=== PATIENT | female | born 1950 | race Caucasian/White ===

== ENCOUNTER 2017-05-26 12:02 | Emergency (ER) | payer OTHER ==
[~2017-05-26] VITALS: Ht 170.2 cm; Wt 132.0 kg
--- NOTE | 2017-05-26 15:11 | Diagnostic Imaging Report ---
PROCEDURE:X-RAY RIGHT FOREARM, TWO VIEWS COMPARISON:None. INDICATIONS:FALL FINDINGS: There are no displaced fractures, dislocations, lytic or blastic lesions. Mild buckling of the lateral cortex of the distal radial metadiaphysis is nonspecific, however, could represent a nondisplaced fracture in appropriate setting. Irregularity of the cutaneous surface in the dorsal aspect of the mid forearm may represent laceration/abrasions. No radiopaque foreign bodies. CONCLUSION: Mild buckling of the lateral cortex of distal radial metadiaphysis is nonspecific however, could represent a nondisplaced fracture. If wrist pain, consider further evaluation with dedicated wrist series. Mee Flores M.D. Dictated by: Mee Flores M.D. on 05/26/2017 at 15:19 Electronically approved by: Mee Flores M.D. on 05/26/2017 at 15:19
--- NOTE | 2017-05-26 15:14 | Diagnostic Imaging Report ---
PROCEDURE:X-RAY RIGHT FOOT, COMPLETE COMPARISON:None. INDICATIONS:FALL FINDINGS: There is a displaced angulated fracture of the distal metadiaphysis of the fifth metatarsal bone. Diffuse paratracheal osteopenia. Marked hallux valgus deformity. Healed fracture of the second metatarsal bone. Advanced arthritic changes involving multiple tarsal and tarsometatarsal joints with subchondral erosions. Plantar calcaneal enthesophyte. CONCLUSION: 1. Displaced fibular fracture of the distal metadiaphysis of the fifth metatarsal bone. 2. Marked hallux valgus deformity. 3. 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 Mee Flores M.D. Dictated by: Mee Flores M.D. on 05/26/2017 at 15:22 Electronically approved by: Mee Flores M.D. on 05/26/2017 at 15:22
[2017-05-26] MEDS ORDERED: TETANUS/DIPHTHERIA TOX ADULT 0.5 ML SYR IM ONE (15:15)
--- NOTE | 2017-05-26 15:21 | Diagnostic Imaging Report ---
PROCEDURE:HIPS BILAT 3-4VWS (+/- PELVIS) INDICATION:Flow. COMPARISON:None. FINDINGS: Mild DJD of hip and SI joints bilaterally. Degenerative changes of the lower lumbar spine. Phleboliths projected on the lower left hemipelvis. Vascular calcifications. CONCLUSION: No acute displaced hip fracture. Mee Flores M.D. Dictated by: Mee Flores M.D. on 05/26/2017 at 15:29 Electronically approved by: Mee Flores M.D. on 05/26/2017 at 15:29
[2017-05-26] MEDS ORDERED: SODIUM CHLORIDE 0.9% 250ML IRRIG IR SCH (15:45)
--- NOTE | 2017-05-26 15:50 | Diagnostic Imaging Report ---
Examination: CT BRAIN WITHOUT CONTRAST History:Confusion. Altered mental status. Comparison studies:None Technique: Axial images were obtained from the skull base to the vertex. Coronal and sagittal images reconstructed from the axial data. Intravenous contrast: None Findings: Scalp: No abnormalities. Bones: No fractures, blastic or lytic lesions. Brain sulci: Appropriate for age. Ventricles: Normal in size and configuration. No hydrocephalus. Extra-axial space: There is a near completely calcified left frontal 2.7 x 2.7 x 1.8 cm (superoinferior x anteroposterior x transverse dimensions) dural based, extra-axial lesion with regional mass effect upon the left inferior frontal gyrus and frontoparietal operculum. No midline shift or herniation. Parenchyma: No masses, hemorrhage, or acute or chronic cortical based vascular insults. Sellar/suprasellar region: No abnormalities. Craniocervical junction: Patent foramen magnum. No Chiari one malformation. Incidental findings: Atherosclerotic calcification of the cavernous and supraclinoid internal carotid arteries. Impression: 1. No acute intracranial abnormalities. 2. Left frontal convexity 2.7 x 2.7 x 1.8 cm extra-axial meningioma with regional mass effect, but no midline shift or herniation. Signed by: Dr. uRby Gonzalez M.D. on 05/26/2017 3:46 PM
[2017-05-26] MEDS ORDERED: PANTOPRAZOLE INJ 40 MG in SODIUM CHLORIDE 0.9% 50ML 50 ML IV SCH (16:00)
[2017-05-26 16:13] LABS: BASOPHILS % 0.2 % (0.0-1.0); EOSINOPHILS # (AUTO) 0.1 (0.0-0.4); EOSINOPHILS % 1.4 % (0.0-6.0); HEMATOCRIT 34.3 % (34.2-44.1); HEMOGLOBIN 11.1 g/dL (12.0-16.0); LYMPHOCYTES % 12.5 % (18.0-39.1); MEAN CORPUSCULAR HEMOGLOBIN 31.9 pg (28-32); MEAN CORPUSCULAR HGB CONC 32.4 g/dL (31-35); MEAN CORPUSCULAR VOLUME 98.6 fL (81-99); MONOCYTES # (AUTO) 0.6 (0.2-0.8); MONOCYTES % 6.9 % (4.4-11.3); NEUTROPHILS # (AUTO) 6.4 (2.1-6.9); NEUTROPHILS % 78.5 % (38.7-80.0); PLATELET COUNT 258 x10e3/uL (140-360); RED BLOOD COUNT 3.48 x10e6/uL (3.6-5.1); RED CELL DISTRIBUTION WIDTH 13.9 % (11.7-14.4)
[2017-05-26 16:16] LABS: INR 0.98; PROTHROMBIN TIME 13.5 seconds (11.9-14.5)
[2017-05-26 16:17] LABS: PARTIAL THROMBOPLASTIN TIME 27.7 seconds (23.8-35.5)
--- NOTE | 2017-05-26 16:17 | Diagnostic Imaging Report ---
PROCEDURE: A single AP view of the chest. COMPARISON: None. INDICATIONS: FALL, SOB FINDINGS: Lines/tubes: None. Lungs: The lungs are well inflated and clear. There is no evidence of pneumonia or pulmonary edema. Pleura: There is no pleural effusion or pneumothorax. Heart and mediastinum: The cardiac silhouette is mildly enlarged. Bones: No acute bony abnormality. Widening of the right a.c. joint may be posttraumatic or post surgical. IMPRESSION: 1. No acute thoracic abnormality. Mee Flores M.D. Dictated by: Mee Flores M.D. on 05/26/2017 at 16:25 Electronically approved by: Mee Flores M.D. on 05/26/2017 at 16:25
--- NOTE | 2017-05-26 16:19 | Diagnostic Imaging Report ---
PROCEDURE:X-RAY RIGHT HUMERUS, TWO OR MORE VIEWS COMPARISON:None. INDICATIONS:FALL, RIGHT UPPER ARM PAIN FINDINGS: There are no fractures, dislocations, lytic or blastic lesions. The bones are well-mineralized. The soft-tissues are unremarkable. Small bony excrescence off the anterior aspect of the radial head on the lateral view likely represents a small osteophyte. Mild DJD of right a.c. joint CONCLUSION: No acute osseous abnormality. Mee Flores M.D. Dictated by: Mee Flores M.D. on 05/26/2017 at 16:27 Electronically approved by: Mee Flores M.D. on 05/26/2017 at 16:27
[2017-05-26 16:23] LABS: ALBUMIN 3.3 g/dL (3.5-5.0); ALBUMIN/GLOBULIN RATIO 0.9 (0.8-2.0); ANION GAP 18.5 mmol/L (8-16); CREATININE, SERUM 3.99 mg/dL (0.57-1.11); POTASSIUM 5.5 mmol/L (3.5-5.1)
[2017-05-26] MEDS ORDERED: PROPRANOLOL HCL10 MG PO (17:07)
[2017-05-26] MEDS ORDERED: SPIRONOLACTONE100 MG PO (17:07)
[2017-05-26] MEDS ORDERED: NOVOLOG100 UNIT/1 SQ (17:07)
[2017-05-26] MEDS ORDERED: GLIMEPIRIDE2 MG PO (17:07)
[2017-05-26] MEDS ORDERED: ULTRAM50 MG PO (17:07)
[2017-05-26] MEDS ORDERED: JANUVIA100 MG PO (17:07)
[2017-05-26] MEDS ORDERED: ALLOPURINOL300 MG PO (17:07)
[2017-05-26] MEDS ORDERED: BUMETANIDE1 MG PO (17:07)
[2017-05-26] MEDS ORDERED: LOVASTATIN40 MG PO (17:07)
[2017-05-26] MEDS ORDERED: INSULIN REGULAR, HUMAN 100 UNIT/1 ML 3ML VIAL SQ ONE (17:45)
[2017-05-26] MEDS ORDERED: SOD POLYSTYRENE SULFONATE SUSP 15 GM/60 ML BTL PO STA (19:02)
[2017-05-26 19:32] VITALS: BP 135/54
== END 2017-05-26 19:34 | disposition short-term general hospital (02) ==
LOC: ER 12:02
DX: S52.381A Bent bone of right radius, initial encounter for closed fracture (principal); S70.211A Abrasion, right hip, initial encounter; S90.414A Abrasion, right lesser toe(s), initial encounter; W01.0XXA Fall on same level from slipping, tripping and stumbling without subsequent striking against object, initial encounter; Y92.008 Other place in unspecified non-institutional (private) residence as the place of occurrence of the external cause; E87.5 Hyperkalemia; N18.3 Chronic kidney disease, stage 3 (moderate)
CPT/HCPCS: 36415; 70450; 71010; 73522; 80053; 82270; 82948; 85025; 85610; 85730; 90471; 90714; 93005; 99284

== ENCOUNTER 2017-06-22 17:43 | Emergency (ER) | payer OTHER ==
[~2017-06-22] VITALS: Ht 170.2 cm; Wt 132.9 kg
[~2017-06-22 17:43] MED LIST: ALLOPURINOL300 MG PO; BUMETANIDE1 MG PO; GLIMEPIRIDE2 MG PO; JANUVIA100 MG PO; LEVEMIR100 UNIT/1 SC; LEVETIRACETAM500 MG PEG; LOVASTATIN40 MG PO; NOVOLOG100 UNIT/1 SQ; PROPRANOLOL HCL10 MG PO; SPIRONOLACTONE100 MG PO; ULTRAM50 MG PO
--- OUTSIDE RECORDS SUMMARY | 2017-06-22 17:46 | XMS REPORT | Continuity of Care Document ---
Author Author [facility] Organization [facility] Address [address] [place] [address] Phone Unavailable Care Team Providers Care Rope Coiling Machine Operator Name Role Phone EVELIO VELASCO MD PCP Insurance Providers Guarantor Leila Mcrae Address [address] [place] [address] Email [email or web address] Payer [place] Policy Number [id number] Subscriber's Name Leila Mcrae Relationship 18 Self / Same As Patient Group Number [id number] Group Name [employer] - [employer] Ad[employer] Effective Date 17 Advance Directives Directive Response Recorded Date/Time Does the patient have an advance directive? No 06/14/17 4:56pm If yes, is advance directive on file with [facility]? No 05/26/17 5:21pm If not on file with [facility] will patient provide a copy? No 05/26/17 5:21pm Do you have a Directive to Physician? No 06/12/17 8:23pm Do you have a Medical Power of Order Desk Clerk? No 06/12/17 8:23pm Do you have an out of hospital Do Not Resuscitate Order? No 06/12/17 8:23pm Do you have any special needs we should be aware of? No 06/12/17 8:23pm Do you have a support person here with you today? Yes 06/12/17 8:23pm Did patient receive Notice of Privacy Practices? Yes 06/12/17 8:23pm Did patient receive patient rights and responsibilities? Yes 06/12/17 8:23pm Problems Medical Problem Onset Date Status Bronchitis Unknown Renal insufficiency Unknown Medications Current Home Medications Medication Dose Units Route Directions Days Qty Instructions Start Date Allopurinol 300 Mg Tablet 150 Mg Oral Daily 30 Tab Bumetanide 1 Mg Tablet 2 Mg Oral Daily 30 Tab Insulin Aspart (Novolog) 100 Unit/1 Ml Cartridge 22 Unit Sub-Q Three Times Daily With Meals Insulin Detemir (Levemir) 100 Unit/1 Ml Vial 40 Unit Subcutaneously Daily Levetiracetam 500 Mg Tablet 500 Mg Peg Tube Twice A Day Lovastatin 40 Mg Tablet 40 Mg Oral Daily THERAPEUTICALLY SUBSTITUTED WITH SIMVASTATIN 20MG Propranolol Hcl 10 Mg Tablet 20 Mg Oral Twice A Day Spironolactone 100 Mg Tablet 100 Mg Oral Daily Tramadol Hcl (Ultram) 50 Mg Tablet 50 Mg Oral Bedtime Past Home Medications Medication Directions Ordered Status Glimepiride 2 Mg Tablet, 4 Mg Oral Twice A Day Discontinued Sitagliptin Phosphate (Januvia) 100 Mg Tablet, 100 Mg Oral Daily Discontinued Social History Social History Problem Response Recorded Date/Time Onset Date Status Hx Psychiatric Problems No 06/14/2017 4:56pm Not Applicable Not Applicable Hx Eating Disorder No 06/14/2017 4:56pm Not Applicable Not Applicable Hx Substance Use Disorder No 06/14/2017 4:56pm Not Applicable Not Applicable Hx Depression No 06/14/2017 4:56pm Not Applicable Not Applicable Hx Alcohol Use No 06/14/2017 4:56pm Not Applicable Not Applicable Hx Substance Use Treatment No 06/14/2017 4:56pm Not Applicable Not Applicable Hx Physical Abuse No 06/14/2017 4:56pm Not Applicable Not Applicable Smoking Status Start Date Stop Date Never Smoker Hospital Discharge Instructions No hospital discharge instruction information available. Plan of Care Discharge Date 06/17/17 11:05am Disposition HOME, SELF-CARE Instructions/Education Provided Bronchitis (Acute) - Adult Prescriptions See Medication Section Additional Instructions/Education FOLLOW UP WITH PRIMARY CARE PROVIDER IN ONE WEEK. Functional Status Query Response Date Recorded FUNCTIONAL STATUS . June 14, 2017 12:25pm Assistive Devices Rolling Walker June 14, 2017 4:59pm Ambulation Ability Minimum Assistance 1 person assist June 14, 2017 4:59pm Toileting Ability Independent June 15, 2017 9:01am Allergies, Adverse Reactions, Alerts No known allergies. Immunizations No immunization information available. Vital Signs Acute Vital Signs Vital Response Date/Time Temperature (Fahrenheit) 96.3 degrees F (97.6 - 99.5) 06/17/2017 8:17am Pulse Pulse Rate (adult) 74 bpm (60 - 90) 06/17/2017 8:17am Respiratory Rate 20 bpm (12 - 24) 06/17/2017 8:17am Blood Pressure 136/80 mm Hg 06/17/2017 8:17am Height 5 ft 7 in 06/12/2017 7:19pm Weight 293.19 lb 06/17/2017 8:18am Body Mass Index 45.9 kg/m^2 06/17/2017 8:18am Results Laboratory Results Test Name Result Units Flags Reference Collection Date/Time Result Date/ Time Comments Stool Occult Blood NEGATIVE NEGATIVE 05/26/2017 3:00pm 05/26/2017 3: 48pm White Blood Count 9.28 x10e3/uL 4.8-10.8 06/15/2017 7:16am 06/15/2017 7 :39am Red Blood Count 2.91 x10e6/uL L 3.6-5.1 06/15/2017 7:16am 06/15/2017 7: 39am Hemoglobin 9.2 g/dL L 12.0-16.0 06/15/2017 7:1606/15/2017 7:39am Hematocrit 27.9 % L 34.2-44.1 06/15/2017 7:16am 06/15/2017 7:39am Mean Corpuscular Volume 95.9 fL 81-99 06/15/2017 7:16am 06/15/2017 7: 39am Mean Corpuscular Hemoglobin 31.6 pg 28-32 06/15/2017 7:16am 06/15/2017 7:39am Mean Corpuscular Hemoglobin Concent 33.0 g/dL 31-35 06/15/2017 7:06/15/2017 7:39am Red Cell Distribution Width 14.0 % 11.7-14.4 06/15/2017 7:2017 7:39am Platelet Count 241 x10e3/uL 140-360 06/15/2017 7:06/15/2017 7: 39am Neutrophils (%) (Auto) 69.6 % 38.7-80.0 06/15/2017 7:06/15/2017 7: 39am Lymphocytes (%) (Auto) 19.4 % 18.0-39.1 06/15/2017 7:06/15/2017 7: 39am Monocytes (%) (Auto) 9.2 % 4.4-11.3 06/15/2017 7:06/15/2017 7: 39am Eosinophils (%) (Auto) 0.9 % 0.0-6.0 06/15/2017 7:06/15/2017 7: 39am Basophils (%) (Auto) 0.1 % 0.0-1.0 06/15/2017 7:06/15/2017 7:39am IM GRANULOCYTES % 0.8 % 0.0-1.0 06/15/2017 7:06/15/2017 7:39am Neutrophils # (Auto) 6.5 2.1-6.9 06/15/2017 7:06/15/2017 7:39am Lymphocytes # (Auto) 1.8 1.0-3.2 06/15/2017 7:06/15/2017 7:39am Monocytes # (Auto) 0.9 H 0.2-0.8 06/15/2017 7:06/15/2017 7:39am Eosinophils # (Auto) 0.1 0.0-0.4 06/15/2017 7:06/15/2017 7:39am Basophils # (Auto) 0.0 0.0-0.1 06/15/2017 7:06/15/2017 7:39am Absolute Immature Granulocyte (auto 0.07 x10e3/uL 0-0.1 06/15/2017 7: 06/15/2017 7:39am Prothrombin Time 13.7 seconds 11.9-14.5 06/12/2017 7:30pm 06/12/2017 8: 34pm Prothromb Time International Ratio 1.00 06/12/2017 7:30pm 2017 8:34pm Oral Anticoagulant Therapy INR Values: 1. Low Intensity Therapy 1.5 - 2.0 2. Moderate Intensity Therapy 2.0 - 3.0 3. High Intensity Therapy(1) 2.5 - 3.5 4. High Intensity Therapy(2) 3.0 - 4.0 5. Panic Value INR > 5.0 Activated Partial Thromboplast Time 32.6 seconds 23.8-35.5 06/12/2017 7: 30pm 06/12/2017 8:34pm Urine Color YELLOW YELLOW 06/12/2017 7:30pm 06/12/2017 10:02pm Urine Clarity HAZY CLEAR 06/12/2017 7:30pm 06/12/2017 10:02pm Urine Specific [place] 1.020 1.010-1.025 06/12/2017 7:30pm 2017 10:02pm Urine pH 5 5 - 7 06/12/2017 7:30pm 06/12/2017 10:02pm Urine Leukocyte Esterase TRACE H NEGATIVE 06/12/2017 7:30pm 2017 10:02pm Urine Nitrite NEGATIVE NEGATIVE 06/12/2017 7:30pm 06/12/2017 10:02pm Urine Protein 1+ H NEGATIVE 06/12/2017 7:30pm 06/12/2017 10:02pm Urine Glucose (UA) NEGATIVE NEGATIVE 06/12/2017 7:30pm 06/12/2017 10: 02pm Urine Ketones NEGATIVE NEGATIVE 06/12/2017 7:30pm 06/12/2017 10:02pm Urine Urobilinogen 0.2 mg/dL 0.2 - 1 06/12/2017 7:30pm 06/12/2017 10: 02pm Urine Bilirubin NEGATIVE NEGATIVE 06/12/2017 7:30pm 06/12/2017 10: 02pm Urine Blood 1+ H NEGATIVE 06/12/2017 7:30pm 06/12/2017 10:02pm Urine WBC 6-10 /HPF H 0-5 06/12/2017 7:30pm 06/12/2017 10:20pm Urine RBC 6-10 /HPF H 0-5 06/12/2017 7:30pm 06/12/2017 10:20pm Urine Bacteria FEW /HPF NONE 06/12/2017 7:30pm 06/12/2017 10:20pm Urine Epithelial Cells MODERATE /LPF NONE 06/12/2017 7:30pm 06/12/2017 10:20pm Sodium Level 137 mmol/L 136-145 06/17/2017 7:15am 06/17/2017 7:47am Potassium Level 4.4 mmol/L 3.5-5.1 06/17/2017 7:15am 06/17/2017 7:47am Chloride Level 107 mmol/L 98-107 06/17/2017 7:15am 06/17/2017 7:47am Influenza Virus Types A,B Antigen NEGATIVE NEGATIVE 06/12/2017 7:30pm 06/12/2017 9:50pm Carbon Dioxide Level 16 mmol/L L 22-29 06/17/2017 7:15am 06/17/2017 7: 47am Anion Gap 18.4 mmol/L H 8-16 06/17/2017 7:15am 06/17/2017 7:47am Blood Urea Nitrogen 88 mg/dL H 7-26 06/17/2017 7:15am 06/17/2017 7:47am Creatinine 2.89 mg/dL H 0.57-1.11 06/17/2017 7:15am 06/17/2017 7:47am BUN/Creatinine Ratio 30 H 6-25 06/17/2017 7:15am 06/17/2017 7:47am Estimat Glomerular Filtration Rate 16 ML/MIN L 60- 06/17/2017 7:15am 01/2018 7:47am Ranges were taken from the National Kidney Disease Education Program and the National Kidney Foundation literature. Reference ranges: 60 or greater: Normal 16-59 (for 3 consecutive months): Chronic kidney disease 15 or less: Kidney failure Glucose Level 151 mg/dL H 74-118 06/17/2017 7:15am 06/17/2017 7:47am Calcium Level 8.3 mg/dL L 8.4-10.2 06/17/2017 7:15am 06/17/2017 7:47am Bedside Glucose 161 mg/dL H 70-120 06/17/2017 7:32am 06/17/2017 8:47am Meter ID: [id number] Hemoglobin A1c Percent 7.9 % H 4.0-7.0 06/14/2017 4:40am 06/14/2017 5: 18am Lactic Acid Level 8.4 MG/DL 4.5-19.8 06/12/2017 7:30pm 06/12/2017 8: 47pm Total Bilirubin < 0.3 mg/dL 0.2-1.2 06/13/2017 6:30am 06/13/2017 6: 53am Aspartate Amino Transf (AST/SGOT) 13 IU/L 5-34 06/13/2017 6:30am 2017 6:53am Alanine Aminotransferase (ALT/SGPT) 15 IU/L 0-55 06/13/2017 6:30am 09/2017 6:53am Total Protein 6.3 g/dL L 6.5-8.1 06/13/2017 6:30am 06/13/2017 6:53am Albumin 2.6 g/dL L 3.5-5.0 06/13/2017 6:3006/13/2017 6:53am Globulin 3.7 g/dL H 2.3-3.5 06/13/2017 6:30am 06/13/2017 6:53am Albumin/Globulin Ratio 0.7 L 0.8-2.0 06/13/2017 6:3006/13/2017 6: 53am Alkaline Phosphatase 66 IU/L 40-150 06/13/2017 6:30am 06/13/2017 6: 53am Triglycerides Level 103 MG/DL 0-149 06/13/2017 6:3006/13/2017 6: 53am Cholesterol Level 146 MD/DL 0-199 06/13/2017 6:3006/13/2017 6:53am Less than 200 mg/dL Low Risk 201 - 239 mg/dL Borderline Risk 240 mg/dl and greater High Risk LDL Cholesterol 93 MG/DL 60-130 06/13/2017 6:3006/13/2017 6:53am HDL Cholesterol 32 MG/DL L 40-60 06/13/2017 6:30am 06/13/2017 6:53am Cholesterol/HDL Ratio 4.6 H 3.0-3.6 06/13/2017 6:3006/13/2017 6: 53am B-Type Natriuretic Peptide 97.3 pg/mL 0-100 06/12/2017 11:15pm 2017 11:40pm Creatine Kinase 71 IU/L 29-168 06/13/2017 3:15pm 06/13/2017 3:58pm Creatine Kinase MB 1.60 ng/mL 0.00-5.00 06/13/2017 3:15pm 06/13/2017 4: 09pm Troponin I 0.007 ng/mL 0-0.300 06/13/2017 3:15pm 06/13/2017 4:09pm Thyroid Stimulating Hormone (TSH) 2.280 uIU/mL 0.350-4.940 06/12/2017 7: 30pm 06/12/2017 9:07pm Microbiology Results Procedure Source Organism/Result Collection Date/Time Result Date/Time Result Status Urine Culture Urine,Clean Catch ESCHERICHIA COLI 06/12/2017 7:30pm 2017 6:42am Final Blood Culture Blood NO GROWTH AFTER 72 HOURS 7:29pm 06/16/2017 12:53am Preliminary Procedures Procedure Status Date Provider(s) Computed tomography of brain without radiopaque contrast Active 05/26/17 NOHEMI CHRISTIAN MD X-ray of chest, single view Active 05/26/17 NOHEMI CHRISTIAN MD Encounters Encounter Location Arrival/Admit Date Discharge/Depart Date Attending Provider Discharged Inpatient [facility] 06/12/17 11:50pm 11:05am NAZ PEREZ MD Departed Emergency Room [facility] 05/26/17 12:02pm 05/26 7:34pm NOHEMI CHRISTIAN MD
--- OUTSIDE RECORDS SUMMARY | 2017-06-22 17:46 | XMS REPORT | Clinical Summary ---
Author Author [facility] Address Unknown Phone Unavailable Care Team Providers Care Porcelain Buildup Assistant Name Role Phone PCP Unavailable Allergies Not on File Current Medications Not on file Active Problems Not on file Social History Tobacco Use Types Packs/Day Years Used Date Never Assessed Sex Assigned at Date Recorded Not on file Last Filed Vital Signs Not on file Plan of Treatment Not on file Results Not on fileafter 06/21/2016
[2017-06-22] MEDS ORDERED: SODIUM CHLORIDE 0.9% 1000ML 1,000 ML IV STA (17:56)
[2017-06-22] MEDS ORDERED: ONDANSETRON HCL INJ 2 MG/ML VIAL IV STA (17:56)
[2017-06-22] MEDS ORDERED: MORPHINE SULFATE 4 MG/ML SYR IV STA (17:56)
[2017-06-22] MEDS ORDERED: MORPHINE SULFATE 2 MG/ML SYR IV NR (18:15)
[2017-06-22] MEDS ORDERED: DIATRIZOATE MEGL/DIATRIZOA SOD 30 ML BTL PO ONE (18:39)
--- NOTE | 2017-06-22 18:53 | Diagnostic Imaging Report ---
PROCEDURE: A single AP view of the chest. COMPARISON: Chest radiograph 06/12/2017 INDICATIONS: ABDOMINAL PAIN FINDINGS: Lines/tubes: None. Lungs: The lungs are well inflated and clear. There is no evidence of pneumonia or pulmonary edema. Pleura: There is no pleural effusion or pneumothorax. Heart and mediastinum: The heart and the mediastinum are unremarkable. Bones: No acute bony abnormality. IMPRESSION: No acute cardiopulmonary disease. Dictated by: Eloy Stallings M.D. on 06/22/2017 at 18:53 Electronically approved by: Eloy Stallings M.D. on 06/22/2017 at 18:53
[2017-06-22 19:17] LABS: BASOPHILS % 0.1 % (0.0-1.0); EOSINOPHILS % 0.1 % (0.0-6.0); HEMATOCRIT 34.5 % (34.2-44.1); HEMOGLOBIN 10.9 g/dL (12.0-16.0); LYMPHOCYTES # (AUTO) 1.1 (1.0-3.2); MEAN CORPUSCULAR HEMOGLOBIN 31.4 pg (28-32); MEAN CORPUSCULAR HGB CONC 31.6 g/dL (31-35); MEAN CORPUSCULAR VOLUME 99.4 fL (81-99); MONOCYTES # (AUTO) 0.5 (0.2-0.8); MONOCYTES % 4.8 % (4.4-11.3); NEUTROPHILS # (AUTO) 9.3 (2.1-6.9); PLATELET COUNT 305 x10e3/uL (140-360); RED BLOOD COUNT 3.47 x10e6/uL (3.6-5.1); RED CELL DISTRIBUTION WIDTH 14.4 % (11.7-14.4)
[2017-06-22 19:18] LABS: BILIRUBIN,URINE NEGATIVE (NEGATIVE); CLARITY,URINE CLEAR (CLEAR); COLOR,URINE YELLOW (YELLOW); KETONES,URINE NEGATIVE (NEGATIVE); LEUKOCYTE ESTERASE ,URINE TRACE (NEGATIVE); NITRITE,URINE NEGATIVE (NEGATIVE); PROTEIN,URINE DIPSTICK 1+ (NEGATIVE); URINE UROBILINOGEN 0.2 mg/dL (0.2 - 1)
[2017-06-22 19:33] LABS: EPITHELIAL CELLS,URINE FEW /LPF
[2017-06-22 19:35] LABS: YEAST,URINE MODERATE
[2017-06-22 19:36] LABS: ALBUMIN 2.9 g/dL (3.5-5.0); ALBUMIN/GLOBULIN RATIO 0.7 (0.8-2.0); ANION GAP 19.4 mmol/L (8-16); CALCIUM 8.1 mg/dL (8.4-10.2); CREATININE, SERUM 3.2 mg/dL (0.57-1.11)
[2017-06-22 19:39] LABS: POTASSIUM 5.4 mmol/L (3.5-5.1)
[2017-06-22 19:43] LABS: CREATINE KINASE MB 1.4 ng/mL (0.00-5.00)
--- NOTE | 2017-06-22 20:20 | Diagnostic Imaging Report ---
EXAM: CT Abdomen and Pelvis WITHOUT contrast INDICATION: \S\abd pain / back pain \[id number] \S\1941 COMPARISON: None. TECHNIQUE: Abdomen and pelvis were scanned utilizing a multidetector helical scanner from the lung base to the pubic symphysis without administration of IV contrast. Absence of intravenous contrast decreases sensitivity for detection of focal lesions and vascular pathology. Coronal and sagittal reformations were obtained. Routine protocol was performed. IV CONTRAST: None ORAL CONTRAST: Gastroview. COMPLICATIONS: None RADIATION DOSE: Total DLP: 782.01 mGy*cm Estimated effective dose: (DLP x 0.015 x size factor) mSv CTDIvol has been reviewed. It is below the limits set by the Radiation Protocol Committee (RPC). FINDINGS: LINES and TUBES: None. LOWER THORAX: Unremarkable HEPATOBILIARY: Unenhanced liver is unremarkable. No biliary ductal dilation. GALLBLADDER: Tiny dependent gallstones. No wall thickening. SPLEEN: No splenomegaly. PANCREAS: Fatty involution of the pancreas. No focal masses or ductal dilatation. ADRENALS: No adrenal nodules KIDNEYS/URETERS: Small kidneys. No hydronephrosis. No contour deforming renal mass. No stones. GI TRACT: No abnormal distention, wall thickening, or evidence of bowel obstruction. Colonic diverticulosis without evidence of diverticulitis. Appendix is normal. PELVIC ORGANS/BLADDER: Unremarkable. LYMPH NODES: No lymphadenopathy. VESSELS: Unremarkable. PERITONEUM / RETROPERITONEUM: No free air or fluid. BONES: Advanced lower lumbar spine degenerative changes. Grade 1 retrolisthesis of L4 in relation to L3. SOFT TISSUES: Small fat-containing umbilical hernia. IMPRESSION: 1. No acute inflammatory process in the abdomen/pelvis. 2. No nephrolithiasis or evidence of obstructive urolithiasis. 3. Atrophic kidneys. 4. Cholelithiasis without CT evidence of cholecystitis. 5. Colonic diverticulosis without evidence of diverticulitis. Signed by: Dr. Brad Rizo MD on 06/22/2017 8:16 PM
[2017-06-22 20:34] LABS: ALBUMIN 2.9 g/dL (3.5-5.0); ALBUMIN/GLOBULIN RATIO 0.8 (0.8-2.0); ANION GAP 18.7 mmol/L (8-16); CALCIUM 8.1 mg/dL (8.4-10.2); CREATININE, SERUM 3.14 mg/dL (0.57-1.11); POTASSIUM 4.7 mmol/L (3.5-5.1)
[2017-06-22] MEDS ORDERED: CEFTRIAXONE SOD 1 GM VIAL IV ONE (20:45)
[2017-06-22] MEDS ORDERED: TETRACAINE HCL 0.5% OPTH SOLN 4 ML BTL OP ONE (21:00)
[2017-06-22] MEDS ORDERED: HYDROCODONE/APAP 10MG-325MG TAB PO ONE (21:00)
== END 2017-06-22 21:18 | disposition home or self-care (01) ==
LOC: ER 17:43
DX: N39.0 Urinary tract infection, site not specified (principal); M54.9 Dorsalgia, unspecified; E11.22 Type 2 diabetes mellitus with diabetic chronic kidney disease; I12.9 Hypertensive chronic kidney disease with stage 1 through stage 4 chronic kidney disease, or unspecified chronic kidney disease; Z79.4 Long term (current) use of insulin; N18.9 Chronic kidney disease, unspecified; E78.5 Hyperlipidemia, unspecified; G47.30 Sleep apnea, unspecified; C50.919 Malignant neoplasm of unspecified site of unspecified female breast; Z96.652 Presence of left artificial knee joint
CPT/HCPCS: 36415; 71045; 74176; 80053; 81001; 82150; 82550; 82553; 83690; 84484; 85025; 87086; 99284; J0696; J2270; J2405; J7030

== ENCOUNTER → 2017-08-09 | Day surgery (SDC) | payer OTHER ==
[2017-08-02 15:08] LABS: BASOPHILS % 0.6 % (0.0-1.0); EOSINOPHILS # (AUTO) 0.1 (0.0-0.4); EOSINOPHILS % 2.1 % (0.0-6.0); HEMATOCRIT 32.6 % (34.2-44.1); HEMOGLOBIN 10.2 g/dL (12.0-16.0); LYMPHOCYTES # (AUTO) 1.3 (1.0-3.2); MEAN CORPUSCULAR HEMOGLOBIN 29.9 pg (28-32); MEAN CORPUSCULAR HGB CONC 31.3 g/dL (31-35); MEAN CORPUSCULAR VOLUME 95.6 fL (81-99); MONOCYTES # (AUTO) 0.7 (0.2-0.8); MONOCYTES % 10.2 % (4.4-11.3); NEUTROPHILS # (AUTO) 4.5 (2.1-6.9); NEUTROPHILS % 67.8 % (38.7-80.0); PLATELET COUNT 323 x10e3/uL (140-360); RED BLOOD COUNT 3.41 x10e6/uL (3.6-5.1); RED CELL DISTRIBUTION WIDTH 13.9 % (11.7-14.4)
[2017-08-02 15:24] LABS: ANION GAP 15.2 mmol/L (8-16); CALCIUM 9.4 mg/dL (8.4-10.2); CREATININE, SERUM 2.64 mg/dL (0.57-1.11); POTASSIUM 4.2 mmol/L (3.5-5.1)
[~2017-08-09] MED LIST changes: +ACETAMINOPHEN 1000 MG/100 ML 100 ML IV ONE; +ALBUTEROL SULF 0.083% NEB SOLN 3 ML NEB ONE; +ASPIR 8181 MG; +BUPIVACAINE 0.25%/EPI 30ML SDV INJ ONE; +CINNAMON500 MG; +DEXAMETHASONE SOD PHOS INJ 4 MG/ML VIAL ONE; +FENTANYL CITRATE/PF 100MCG/2 ML INJ ONE; +FISH OIL 1,0001 EAC2; +GARLIC1000 MG; +HYDRALAZINE HCL25 MG PO; -LEVETIRACETAM500 MG PEG; +LEVETIRACETAM500 MG PO; +LIDOCAINE HCL 1% LOCAL INJ 20 ML VIAL ONE; +LIDOCAINE HCL 2% LOCAL INJ 5 ML SDV VIAL INJ ONE; +LYRICA25 MG PO; +MIDAZOLAM HCL 2 MG/2 ML VIAL ONE; +NOVOLOG100 UNITS1; +ONDANSETRON HCL INJ 2 MG/ML VIAL ONE; +PROPOFOL IV EMULSION 10 MG/ML 20 ML VIAL ONE; +ROCURONIUM BROMIDE 10 MG/ML 5ML VIAL ONE; +SEVOFLURANE INHAL SOLN 250 ML PEN BTL ONE; +SODIUM BICARB PO; +SPIRONOLACTONE25 MG PO; +SUCCINYLCHOLINE 200 MG/10 ML SYR ONE; +VITAMIN B-121000 MCG PO; +VITAMIN E400 UNI1
--- OUTSIDE RECORDS SUMMARY | 2017-08-09 06:58 | XMS REPORT | Clinical Summary ---
Author Author [facility] Address Unknown Phone Unavailable Care Team Providers Care Production Line Manager Name Role Phone PCP Unavailable Allergies Not on File Current Medications Not on file Active Problems Not on file Social History Tobacco Use Types Packs/Day Years Used Date Never Assessed Sex Assigned at Date Recorded Not on file Last Filed Vital Signs Not on file Plan of Treatment Not on file Results Not on fileafter 08/08/2016
--- OUTSIDE RECORDS SUMMARY | 2017-08-09 06:58 | XMS REPORT | Continuity of Care Document ---
Author Author [facility] Organization [facility] Address [address] [place] [address] Phone Unavailable Care Team Providers Care Certified Executive Chef Name Role Phone EVELIO VELASCO MD PCP Insurance Providers Guarantor Leila Mcrae Address [address] [place] [address] Email [email or web address] Payer [employer] Policy Number [id number] Subscriber's Name Leila Mcrae Relationship 18 Self / Same As Patient Group Number [id number] Group Name [employer] - Medicare Advantage Divis Effective Date 17 Advance Directives Directive Response Recorded Date/Time Does the patient have an advance directive? No 06/14/17 4:56pm If yes, is advance directive on file with [facility]? No 05/26/17 5:21pm If not on file with [facility] will patient provide a copy? Yes 06/22/17 8:14pm Do you have a Directive to Physician? No 06/22/17 8:14pm Do you have a Medical Power of Cafeteria Manager? No 06/22/17 8:14pm Do you have an out of hospital Do Not Resuscitate Order? No 06/22/17 8:14pm Do you have any special needs we should be aware of? No 06/22/17 8:14pm Do you have a support person here with you today? Yes 06/22/17 8:14pm Did patient receive Notice of Privacy Practices? Yes 06/22/17 8:14pm Did patient receive patient rights and responsibilities? Yes 06/22/17 8:14pm Problems Medical Problem Onset Date Status Bronchitis [...] No 06/14/2017 4:56pm Not Applicable Not Applicable Hospital Discharge Instructions No hospital discharge instruction information available. Plan of Care Discharge Date 06/22/17 9:18pm Disposition HOME, SELF-CARE Condition at Discharge Stable Instructions/Education Provided Back Pain Urinary Tract Infection - Women Forms Provided Work/School Excuse Prescriptions See Medication Section Additional Instructions/Education 1. increase oral fluids 2. return to ed as needed Functional Status No functional status information available. Allergies, Adverse Reactions, Alerts No known allergies. Immunizations No immunization information available. Vital Signs Acute Vital Signs Vital Response Date/Time Temperature (Fahrenheit) 96.3 degrees F (97.6 - 99.5) 06/17/2017 8:17am Pulse Pulse Rate (adult) 74 bpm (60 - 90) 06/17/2017 8:17am Respiratory Rate 20 bpm (12 - 24) 06/17/2017 8:17am Blood Pressure 136/80 mm Hg 06/17/2017 8:17am Height 5 ft 7 in 06/22/2017 5:54pm Weight 293 lb 06/22/2017 5:54pm Body Mass Index 45.9 kg/m^2 06/22/2017 5:54pm Results Laboratory Results Test Name Result Units Flags Reference Collection Date/Time Result Date/ Time Comments Stool Occult Blood NEGATIVE NEGATIVE 05/26/2017 3:00pm 05/26/2017 3: 48pm Prothrombin Time 13.7 seconds 11.9-14.5 06/12/2017 7:30pm [...] seconds 23.8-35.5 06/12/2017 7: 30pm 06/12/2017 8:34pm Influenza Virus Types A,B Antigen NEGATIVE NEGATIVE 06/12/2017 7:30pm 06/12/2017 9:50pm Bedside Glucose 161 mg/dL H 70-120 06/17/2017 7:32am 06/17/2017 8:47am Meter ID: [id number] Hemoglobin A1c Percent 7.9 % H 4.0-7.0 06/14/2017 4:40am 06/14/2017 5: 18am Lactic Acid Level 8.4 MG/DL 4.5-19.8 06/12/2017 7:30pm 06/12/2017 8: 47pm Triglycerides Level 103 MG/DL 0-149 06/13/2017 6:30am 06/13/2017 6: 53am Cholesterol Level 146 MD/DL 0-199 06/13/2017 6:30am 06/13/2017 6:53am Less than 200 mg/dL Low Risk 201 - 239 mg/dL Borderline Risk 240 mg/dl and greater High Risk LDL Cholesterol 93 MG/DL 60-130 06/13/2017 6:30am 06/13/2017 6:53am HDL Cholesterol 32 MG/DL L 40-60 06/13/2017 6:30am 06/13/2017 6:53am Cholesterol/HDL Ratio 4.6 H 3.0-3.6 06/13/2017 6:30am 06/13/2017 6: 53am B-Type Natriuretic Peptide 97.3 pg/mL 0-100 06/12/2017 11:15pm 2017 11:40pm Thyroid Stimulating Hormone (TSH) 2.280 uIU/mL 0.350-4.940 06/12/2017 7: 30pm 06/12/2017 9:07pm White Blood Count 11.04 x10e3/uL H 4.8-10.8 06/22/2017 7:01pm 2017 7:18pm Red Blood Count 3.47 x10e6/uL L 3.6-5.1 06/22/2017 7:01pm 06/22/2017 7: 18pm Hemoglobin 10.9 g/dL L 12.0-16.0 06/22/2017 7:01pm 06/22/2017 7:18pm Hematocrit 34.5 % 34.2-44.1 06/22/2017 7:0106/22/2017 7:18pm Mean Corpuscular Volume 99.4 fL H 81-99 06/22/2017 7:0106/22/2017 7: 18pm Mean Corpuscular Hemoglobin 31.4 pg 28-32 06/22/2017 7:01pm 06/22/2017 7:18pm Mean Corpuscular Hemoglobin Concent 31.6 g/dL 31-35 06/22/2017 7:01pm 06/22/2017 7:18pm Red Cell Distribution Width 14.4 % 11.7-14.4 06/22/2017 7:01pm 2017 7:18pm Platelet Count 305 x10e3/uL 140-360 06/22/2017 7:01pm 06/22/2017 7: 18pm Neutrophils (%) (Auto) 84.0 % H 38.7-80.0 06/22/2017 7:01pm 06/22/2017 7 :18pm Lymphocytes (%) (Auto) 10.0 % L 18.0-39.1 06/22/2017 7:01pm 06/22/2017 7 :18pm Monocytes (%) (Auto) 4.8 % 4.4-11.3 06/22/2017 7:01pm 06/22/2017 7: 18pm Eosinophils (%) (Auto) 0.1 % 0.0-6.0 06/22/2017 7:01pm 06/22/2017 7: 18pm Basophils (%) (Auto) 0.1 % 0.0-1.0 06/22/2017 7:01pm 06/22/2017 7:18pm IM GRANULOCYTES % 1.0 % 0.0-1.0 06/22/2017 7:01pm 06/22/2017 7:18pm Neutrophils # (Auto) 9.3 H 2.1-6.9 06/22/2017 7:01pm 06/22/2017 7: 18pm Lymphocytes # (Auto) 1.1 1.0-3.2 06/22/2017 7:01pm 06/22/2017 7:18pm Monocytes # (Auto) 0.5 0.2-0.8 06/22/2017 7:01pm 06/22/2017 7:18pm Eosinophils # (Auto) 0.0 0.0-0.4 06/22/2017 7:01pm 06/22/2017 7:18pm Basophils # (Auto) 0.0 0.0-0.1 06/22/2017 7:01pm 06/22/2017 7:18pm Absolute Immature Granulocyte (auto 0.11 x10e3/uL H 0-0.1 06/22/2017 7: 0106/22/2017 7:18pm Urine Color YELLOW YELLOW 06/22/2017 7:10pm 06/22/2017 7:18pm Urine Clarity CLEAR CLEAR 06/22/2017 7:1006/22/2017 7:18pm Urine Specific [place] 1.015 1.010-1.025 06/22/2017 7:102017 7:18pm Urine pH 5 5 - 7 06/22/2017 7:10pm 06/22/2017 7:18pm Urine Leukocyte Esterase TRACE H NEGATIVE 06/22/2017 7:102017 7:18pm Urine Nitrite NEGATIVE NEGATIVE 06/22/2017 7:10pm 06/22/2017 7:18pm Urine Protein 1+ H NEGATIVE 06/22/2017 7:10pm 06/22/2017 7:18pm Urine Glucose (UA) 3+ H NEGATIVE 06/22/2017 7:10pm 06/22/2017 7:18pm Urine Ketones NEGATIVE NEGATIVE 06/22/2017 7:10pm 06/22/2017 7:18pm Urine Urobilinogen 0.2 mg/dL 0.2 - 1 06/22/2017 7:10pm 06/22/2017 7: 18pm Urine Bilirubin NEGATIVE NEGATIVE 06/22/2017 7:10pm 06/22/2017 7: 18pm Urine Blood 1+ H NEGATIVE 06/22/2017 7:1006/22/2017 7:18pm Urine WBC 11-20 /HPF H 0-5 06/22/2017 7:10pm 06/22/2017 7:35pm Urine RBC 11-20 /HPF H 0-5 06/22/2017 7:10pm 06/22/2017 7:35pm Urine Bacteria NONE /HPF NONE 06/22/2017 7:10pm 06/22/2017 7:35pm Urine Epithelial Cells FEW /LPF NONE 06/22/2017 7:10pm 06/22/2017 7: 35pm Urine Yeast MODERATE H NONE 06/22/2017 7:1006/22/2017 7:35pm Sodium Level 138 mmol/L 136-145 06/22/2017 8:0506/22/2017 8:35pm Potassium Level 4.7 mmol/L 3.5-5.1 06/22/2017 8:05pm 06/22/2017 8:35pm Chloride Level 102 mmol/L 98-107 06/22/2017 8:05pm 06/22/2017 8:35pm Carbon Dioxide Level 22 mmol/L 22-29 06/22/2017 8:05pm 06/22/2017 8: 35pm Anion Gap 18.7 mmol/L H 8-16 06/22/2017 8:05pm 06/22/2017 8:35pm Blood Urea Nitrogen 84 mg/dL H 7-26 06/22/2017 8:05pm 06/22/2017 8:35pm Creatinine 3.14 mg/dL H 0.57-1.11 06/22/2017 8:05pm 06/22/2017 8:35pm BUN/Creatinine Ratio 27 H 6-25 06/22/2017 8:05pm 06/22/2017 8:35pm Estimat Glomerular Filtration Rate 15 ML/MIN L 60- 06/22/2017 8:05pm 8:35pm Ranges were taken from the National Kidney Disease Education Program and the National Kidney Foundation literature. Reference ranges: 60 or greater: Normal 16-59 (for 3 consecutive months): Chronic kidney disease 15 or less: Kidney failure Glucose Level 201 mg/dL H 74-118 06/22/2017 8:05pm 06/22/2017 8:35pm Calcium Level 8.1 mg/dL L 8.4-10.2 06/22/2017 8:05pm 06/22/2017 8:35pm Total Bilirubin 0.3 mg/dL 0.2-1.2 06/22/2017 8:05pm 06/22/2017 8:35pm Aspartate Amino Transf (AST/SGOT) 14 IU/L 5-34 06/22/2017 8:05pm 2017 8:35pm Alanine Aminotransferase (ALT/SGPT) 20 IU/L 0-55 06/22/2017 8:05pm 8:35pm Total Protein 6.7 g/dL 6.5-8.1 06/22/2017 8:05pm 06/22/2017 8:35pm Albumin 2.9 g/dL L 3.5-5.0 06/22/2017 8:05pm 06/22/2017 8:35pm Globulin 3.8 g/dL H 2.3-3.5 06/22/2017 8:05pm 06/22/2017 8:35pm Albumin/Globulin Ratio 0.8 0.8-2.0 06/22/2017 8:05pm 06/22/2017 8: 35pm Alkaline Phosphatase 60 IU/L 40-150 06/22/2017 8:05pm 06/22/2017 8: 35pm Creatine Kinase 74 IU/L 29-168 06/22/2017 7:01pm 06/22/2017 7:39pm Creatine Kinase MB 1.40 ng/mL 0.00-5.00 06/22/2017 7:01pm 06/22/2017 7: 44pm Troponin I 0.002 ng/mL 0-0.300 06/22/2017 7:01pm 06/22/2017 7:44pm Amylase Level 75 U/L 25-125 06/22/2017 7:01pm 06/22/2017 7:39pm Lipase 97 U/L H 8-78 06/22/2017 7:01pm 06/22/2017 7:39pm Microbiology Results Procedure Source Organism/Result Collection Date/Time Result Date/Time Result Status Urine Culture Urine,Clean Catch ESCHERICHIA COLI 06/12/2017 7:30pm 2017 6:42am Final Blood Culture Blood NO GROWTH AFTER 5 DAYS, FINAL REPORT 06/12/2017 7:29pm 06/18/2017 12:53am Final Procedures Procedure Status Date Provider(s) Computed tomography of brain without radiopaque contrast Active 05/26/17 NOHEMI CHRISTIAN MD X-ray of chest, single view Active 05/26/[address] of abdomen and pelvis without contrast Active 06/22/17 OCTAVIO GODWIN DIRECTOR COMPLIANCE Encounters Encounter Location Arrival/Admit Date Discharge/Depart Date Attending Provider Departed Emergency Room [facility] 06/22/17 5:43pm 9:18pm VIRGINIA BARAKAT MD Discharged Inpatient [facility] 06/12/17 11:50pm 11:05am NAZ PEREZ MD Departed Emergency Room [facility] 05/26/17 12:02pm 05/26 7:34pm NOHEMI CHRISTIAN MD
--- NOTE | 2017-08-09 15:40 | Operative Report ---
DATE OF PROCEDURE: August 09, 2017 PREOPERATIVE DIAGNOSIS: Right breast cancer. POSTOPERATIVE DIAGNOSIS: Right breast cancer.. OPERATION PERFORMED: Right breast lumpectomy with preoperative mammogram-guided needle localization and intraoperative specimen mammography and right axillary sentinel node mapping and biopsy. DIRECTOR TOXICOLOGY: Zoya COOLEY. ANESTHESIA: General. COMPLICATIONS: None. ESTIMATED BLOOD LOSS: Minimal. DESCRIPTION OF PROCEDURE: With the patient lying in bed in the supine position under good general anesthesia, after having undergone a needle localization of the area in question and having also undergone a sentinel node mapping of the right axilla, the right breast was prepped with Betadine solution and draped in the usual manner. An incision was made along the wires in the outer lower quadrant of the right breast. The patient is very large-breasted. The wires were then followed to the area in question. The area in question was then slowly and carefully encircled, containing the 2 wires that were marking the area, and the whole area was completely removed and sent for specimen mammography after appropriate orientation. This showed that the area in question had been removed. The whole area was then thoroughly irrigated, and perfect hemostasis was ascertained. The axilla was then approached through the same incision, and using the Neoprobe, the lymph nodes in question were encountered. There were 2 areas that were clearly hot under the Neoprobe, extending to as much as 1700 counts. This was removed in 2 separate lymph nodes pockets representing number 1 and number 2, with number 1 being the one with the hottest lymph node, and they were sent for permanent section. The whole area was then thoroughly irrigated. Perfect hemostasis was ascertained. The breast tissue was then reapproximated with interrupted sutures of 2-0 chromic, and the skin was closed with interrupted vertical mattress sutures of 3-0 silk. A dressing was applied. The sponge, lap and needle count was correct. The patient tolerated the procedure well and returned to the recovery room in stable condition. Job#: [id number] FRANK
--- NOTE | 2017-08-09 15:42 | Diagnostic Imaging Report ---
#[id number] - [id number] NEEDLE LOCALIZATION: 08/09/2017 PROCEDURE DESCRIPTION: The patient had a stereotactic biopsy of the right breast. Mammograms show a biopsy marker clip at the lesion location. Preoperative localization was requested. Written informed written consent was obtained from the patient, and a formal time out was taken to confirm patient identity and procedure to be perfomed. Using standard sterile technique, 1% lidocaine local anesthesia, and mammographic guidance, the biopsy clip was preoperatively localized with a hookwire. Due to the size of the breast 2 hookwires had to be placed. The hookwire that was more posterior and deeper was flagged with a steristrip markers. Final CC and LM mammograms were obtained to document wire location. A sterile bandage was placed over the wire and the patient was transferred from mammography with no immediate complications noted. Case discussed with the surgeon prior to the surgical excision. complications noted. Correlation is made to exams dated: 04/21/2017 stereotactic biopsy, 04/05/2017 mammogram and 03/08/2017 mammogram - [facility]. IMPRESSION: NEEDLE LOCALIZATION Follow-up with ACR/ACS guidelines. Eben carvalho/dc:08/09/2017 13:47:43 Cattle Dealer: Gianna HATFIELD)([place]), [facility] [id number]
--- NOTE | 2017-08-09 15:42 | Diagnostic Imaging Report ---
#[id number] - [id number] SPECIMEN: 08/09/2017 Correlation is made to exams dated: 08/09/2017 localization - [facility] and 04/21/2017 stereotactic biopsy - [facility]. The specimen contains the two hook wires and the stereotactic biopsy clip. IMPRESSION: SPECIMEN Follow-up with ACR/ACS guidelines. Eben Martins Jr., D.O. cw/:08/09/2017 14:14:27 Clinical Support Manager: Gianna MEDINA(Armando)(M), [facility]
--- NOTE | 2017-08-09 16:56 | Diagnostic Imaging Report ---
Lymphoscintigraphy Reason for Exam: RIght breast cancer; scheduled for sentinel lymph node biopsy Radiopharmaceutical: Tc-99m filtered sulfur colloid 650 microcuries Report: The radiotracer was given as two separate injections intradermally at the edge of the right areola. Images of the chest and right axilla were obtained in the anterior and right anterior oblique projections. A single focal area of tracer accumulation is seen in the right axilla. No accumulation of tracer is seen in the midline of the chest or in the neck. Impression: Injection for sentinel lymph node mapping. A single sentinel lymph node is identified in the right axilla. Signed by: Dr. Gianna Green M.D. on 08/09/2017 4:53 PM
== END | disposition home or self-care (01) ==
LOC: OR 06:55
PROVIDERS: ATTEND Surgery
DX: C50.911 Malignant neoplasm of unspecified site of right female breast (principal); E11.22 Type 2 diabetes mellitus with diabetic chronic kidney disease; I12.0 Hypertensive chronic kidney disease with stage 5 chronic kidney disease or end stage renal disease; N18.5 Chronic kidney disease, stage 5; G47.33 Obstructive sleep apnea (adult) (pediatric); E78.5 Hyperlipidemia, unspecified; J45.909 Unspecified asthma, uncomplicated; Z01.812 Encounter for preprocedural laboratory examination; Z79.4 Long term (current) use of insulin; Z79.82 Long term (current) use of aspirin
CPT/HCPCS: 19281; 19301; 36415 ×2; 38525; 76098; 78195; 80048; 82948; 85025; 88307; A9541; J1100; J2001 ×2; J2250; J2405; 88304

== ENCOUNTER 2017-08-18 10:48 | Inpatient (IN) | payer OTHER ==
[~2017-08-18] VITALS: Ht 170.2 cm; Wt 132.9 kg
[~2017-08-18 10:48] MED LIST changes: -ACETAMINOPHEN 1000 MG/100 ML 100 ML IV ONE; -ALBUTEROL SULF 0.083% NEB SOLN 3 ML NEB ONE; -BUPIVACAINE 0.25%/EPI 30ML SDV INJ ONE; -DEXAMETHASONE SOD PHOS INJ 4 MG/ML VIAL ONE; -FENTANYL CITRATE/PF 100MCG/2 ML INJ ONE; -HYDRALAZINE HCL25 MG PO; -LIDOCAINE HCL 1% LOCAL INJ 20 ML VIAL ONE; -LIDOCAINE HCL 2% LOCAL INJ 5 ML SDV VIAL INJ ONE; -MIDAZOLAM HCL 2 MG/2 ML VIAL ONE; -ONDANSETRON HCL INJ 2 MG/ML VIAL ONE; -PROPOFOL IV EMULSION 10 MG/ML 20 ML VIAL ONE; -ROCURONIUM BROMIDE 10 MG/ML 5ML VIAL ONE; -SEVOFLURANE INHAL SOLN 250 ML PEN BTL ONE; -SODIUM BICARB PO; -SUCCINYLCHOLINE 200 MG/10 ML SYR ONE
--- OUTSIDE RECORDS SUMMARY | 2017-08-18 10:50 | XMS REPORT | Clinical Summary ---
Author Author [facility] Address Unknown Phone Unavailable Care Team Providers Care Early Childhood Education Coordinator Name Role Phone PCP Unavailable Allergies Not on File Current Medications Not on file Active Problems Not on file Social History Tobacco Use Types Packs/Day Years Used Date Never Assessed Sex Assigned at Date Recorded Not on file Last Filed Vital Signs Not on file Plan of Treatment Not on file Results Not on fileafter 08/17/2016
[2017-08-18 11:29] LABS: BASOPHILS % 0.4 % (0.0-1.0); EOSINOPHILS # (AUTO) 0.1 (0.0-0.4); EOSINOPHILS % 1.6 % (0.0-6.0); HEMATOCRIT 31.3 % (34.2-44.1); LYMPHOCYTES # (AUTO) 1.1 (1.0-3.2); LYMPHOCYTES % 13.4 % (18.0-39.1); MEAN CORPUSCULAR HEMOGLOBIN 29.9 pg (28-32); MEAN CORPUSCULAR HGB CONC 31.9 g/dL (31-35); MEAN CORPUSCULAR VOLUME 93.7 fL (81-99); MONOCYTES # (AUTO) 0.6 (0.2-0.8); MONOCYTES % 7.3 % (4.4-11.3); NEUTROPHILS # (AUTO) 6.4 (2.1-6.9); NEUTROPHILS % 76.8 % (38.7-80.0); PLATELET COUNT 348 x10e3/uL (140-360); RED BLOOD COUNT 3.34 x10e6/uL (3.6-5.1); RED CELL DISTRIBUTION WIDTH 14.2 % (11.7-14.4)
[2017-08-18 12:03] LABS: INR 1.19; PARTIAL THROMBOPLASTIN TIME 27.7 seconds (23.8-35.5); PROTHROMBIN TIME 14.2 seconds (11.9-14.5)
--- NOTE | 2017-08-18 12:06 | Diagnostic Imaging Report ---
PROCEDURE: A single AP view of the chest. COMPARISON: Portable chest 06/22/2017. INDICATIONS: SHORTNESS OF BREATH FINDINGS: Lines/tubes: None. Lungs: Low lung volumes are present bilaterally. No parenchymal mass.. Pleura: There is no pleural effusion or pneumothorax. Heart and mediastinum: The heart and the mediastinum are unremarkable. Bones: No acute bony abnormality. Degenerative changes of the thoracic spine. Kyphoplasty changes. IMPRESSION: No acute radiographic abnormality. Dictated by: Bandar Mckeon M.D. on 08/18/2017 at 12:07 Electronically approved by: Bandar Mckeon M.D. on 08/18/2017 at 12:07
[2017-08-18 12:13] LABS: ALBUMIN 2.8 g/dL (3.5-5.0); ALBUMIN/GLOBULIN RATIO 0.8 (0.8-2.0); ANION GAP 16.2 mmol/L (8-16); CALCIUM 9.2 mg/dL (8.4-10.2); CREATININE, SERUM 2.91 mg/dL (0.57-1.11); MAGNESIUM 1.6 MG/DL (1.3-2.1); POTASSIUM 4.2 mmol/L (3.5-5.1)
[2017-08-18 12:32] LABS: CREATINE KINASE MB 0.4 ng/mL (0-5.0); THYROID STIMULATING HORMONE 2.527 uIU/mL (0.350-4.940)
[2017-08-18] MEDS ORDERED: ENOXAPARIN SODIUM INJ 100 MG/ML SYR SC STA (12:58)
--- OUTSIDE RECORDS SUMMARY | 2017-08-18 14:21 | XMS REPORT | Clinical Summary ---
Author Author [facility] Address Unknown Phone Unavailable Care Team Providers Care Timber Watchman Name Role Phone PCP Unavailable Allergies Not on File Current Medications Not on file Active Problems Not on file Social History Tobacco Use Types Packs/Day Years Used Date Never Assessed Sex Assigned at Date Recorded Not on file Last Filed Vital Signs Not on file Plan of Treatment Not on file Results Not on fileafter 08/17/2016
--- NOTE | 2017-08-18 15:20 | Consultation ---
DATE OF CONSULTATION: August 18, 2017 CARDIOLOGY CONSULTATION REASON FOR CONSULTATION: Shortness of breath. REQUESTING PHYSICIAN: Dr. Hurtado HPI: This is a morbidly obese 67-year-old female that presented with shortness of breath. The patient was seen in the clinic today by Dr. Dandy Burgos. She had severe shortness of breath, and she was sent to the emergency room for evaluation to rule out any PE. According to her and the friend at the bedside, she had shortness of breath that has been going on for a couple of weeks now. She is unable to tolerate activities of daily living. She noted bilateral lower extremity edema and is unable to lie flat. She denied any chest pain, any palpitations or dizziness. Chest x-ray showed no acute radiographic abnormalities. BNP was 60. D-dimer was elevated. PAST MEDICAL HISTORY: Diabetes, obesity, hyperlipidemia, tremors, sleep apnea, CKD, brain tumor, osteoarthritis, right breast cancer, and bronchitis. PAST SURGICAL HISTORY: Knee surgery, tonsillectomy, right lumpectomy, and recent kyphoplasty at [facility]. FAMILY HISTORY: Heart disease. SOCIAL HISTORY: No smoking. No drinking. She sleeps with CPAP machine at night. MEDICATIONS: She was on tramadol, Levemir, NovoLog, spironolactone, Bumex, lovastatin, allopurinol and propranolol at home. ALLERGIES: SHE IS NOT ALLERGIC TO ANY MEDICATION. REVIEW OF SYSTEMS: Negative except those mentioned above. Positive for dyspnea. PHYSICAL EXAMINATION VITAL SIGNS: Temperature 98, heart rate 61, blood pressure 160/70, respirations 18 on 3 L nasal cannula. GENERAL: She is morbidly obese, awake, alert and oriented times 3. HEENT: Mucous membranes are moist. NECK: Supple. LUNGS: Bilateral with decreased breath sounds. CARDIOVASCULAR: S1 and S2 present. ABDOMEN: Soft. NEUROLOGIC: Intact. EXTREMITIES: With 3 to 4+ pitting edema. LABS: Sodium 142, potassium 4.2, chloride 101, CO2 29, BUN 47, creatinine 2.91, glucose 268. White blood cells 8.33, red blood cells 3.34, hemoglobin 10.0, hematocrit 31.3, platelets 348. IMPRESSION 1. Acute exacerbation of diastolic congestive heart failure. 2. Positive D-dimer. 3. Obesity. 4. Chronic kidney disease. 5. Hypertension. 6. Diabetes. 7. Status post lumpectomy on the right. ASSESSMENT AND PLAN 1. She had a recent echo with EF 60% to 65%. We will go ahead and get another echocardiogram to reassess the LV function. 2. We will put her on 2 L fluid restriction. 3. Low salt diet. 4. Get bilateral lower extremity venous Doppler to rule out any blood clot. 5. She is pending V/Q scan to rule out PE. 6. Will continue Lovenox. 7. Will get cardiac enzymes. 8. Possible cardiac stress test when stable. 9. Further cardiac workup pending clinical course. Thank you for this consultation. Dictated by Kwan Boo NP Job#: [id number]
[2017-08-18 16:07] VITALS: BP 150/65
[2017-08-18 16:16] VITALS: BP 150/65
[2017-08-18] MEDS ORDERED: FUROSEMIDE INJ 10 MG/ML 4 ML VIAL IV SCH (17:00)
--- NOTE | 2017-08-18 18:39 | Diagnostic Imaging Report ---
EXAM: VENTILATION PERFUSION LUNG SCAN INDICATION: 67 F with acute onset SOB and elevated D-dimer COMPARISON: Chest radiograph 08/18/2017 DISCUSSION: Xenon-133 gas 9 mCi was administered via inhalation. Dynamic images of the lungs in the posterior projection were obtained through single breath and washout phases. Distribution of tracer activity is mildly irregular throughout the lungs. Washout is diffusely delayed with air trapping in the right lung base. Perfusion images of the lungs in multiple projections were obtained following intravenous administration of 5.5 mCi of Tc-99m MAA. Distribution of tracer is mildly irregular throughout the lungs. There are no segmental perfusion defects of any size. The contours of the lungs are well demarcated. The cardiac silhouette is unremarkable. IMPRESSION: 1. Scan findings represent a VERY LOW probability for acute pulmonary embolic disease based on the PIOPED II criteria. 2. Scan findings are compatible with diffuse parenchymal and/or obstructive lung disease. Signed by: Dr. Gianna Green M.D. on 08/18/2017 6:36 PM
[2017-08-18 20:22] VITALS: BP 130/70
[2017-08-18 20:27] VITALS: BP 169/67
[2017-08-18] MEDS ORDERED: DEXTROSE 50% SYRINGE 50 ML IV PRN (20:45)
[2017-08-18 20:57] LABS: CREATINE KINASE 52 IU/L (29-168)
[2017-08-18] MEDS ORDERED: HYDRALAZINE HCL 20 MG/ML VIAL IV PRN (21:00)
[2017-08-18] MEDS ORDERED: FUROSEMIDE INJ 10 MG/ML 4 ML VIAL IV ONE (21:00)
[2017-08-18] MEDS ORDERED: MELATONIN 5 MG TABLET PO PRN (21:00)
[2017-08-18] MEDS: ACETAMINOPHEN 325 MG TAB PO PRN (21:10)
[2017-08-18] MEDS ORDERED: FUROSEMIDE INJ 100 MG in SODIUM CHLORIDE 0.9% 100 ML 90 ML IV SCH (21:15)
[2017-08-18] MEDS: INSULIN LISPRO 100 UNIT/1 ML 3ML VIAL SQ SCH (21:30)
[2017-08-18] MEDS: ALBUTEROL/IPRATROPIUM 3 ML NEB NEB PRN (22:50)
[2017-08-18] MEDS: TRAMADOL HCL 50 MG TAB PO SCH (22:50)
[2017-08-18 23:17] VITALS: BP 169/67
[2017-08-19] VITALS: BP 156/65
[2017-08-19 04:00] VITALS: BP 133/60
[2017-08-19 06:11] LABS: CLARITY,URINE SL CLOUDY (CLEAR); COLOR,URINE YELLOW (YELLOW)
[2017-08-19 06:12] LABS: BILIRUBIN,URINE NEGATIVE (NEGATIVE); KETONES,URINE NEGATIVE (NEGATIVE); LEUKOCYTE ESTERASE ,URINE NEGATIVE (NEGATIVE); NITRITE,URINE NEGATIVE (NEGATIVE); PROTEIN,URINE DIPSTICK 1+ (NEGATIVE); URINE UROBILINOGEN 0.2 mg/dL (0.2 - 1)
[2017-08-19 06:50] LABS: EPITHELIAL CELLS,URINE RARE /LPF
[2017-08-19 07:45] LABS: ANION GAP 14.6 mmol/L (8-16); BLOOD UREA NITROGEN 48 mg/dL (7-26); BUN/CREATININE RATIO 17 (6-25); CALCIUM 8.8 mg/dL (8.4-10.2); CARBON DIOXIDE 31 mmol/L (22-29); CHLORIDE 98 mmol/L (98-107); CHOL/HDL RATIO 4.5 (3.0-3.6); CHOLESTEROL 118 MD/DL (0-199); CREATINE KINASE 55 IU/L (29-168); CREATININE, SERUM 2.87 mg/dL (0.57-1.11); EST GLOMERULAR FILTRATION RATE 16 ML/MIN (60-); GLUCOSE 147 mg/dL (74-118); HDL CHOLESTEROL 26 MG/DL (40-60); LDL CHOLESTEROL 68 MG/DL (60-130); POTASSIUM 3.6 mmol/L (3.5-5.1); SODIUM 140 mmol/L (136-145); TRIGLYCERIDES 119 MG/DL (0-149)
[2017-08-19 08:07] LABS: THYROID STIMULATING HORMONE 3.548 uIU/mL (0.350-4.940)
[2017-08-19 08:21] LABS: BASOPHILS % 0.4 % (0.0-1.0); EOSINOPHILS # (AUTO) 0.3 (0.0-0.4); EOSINOPHILS % 3.5 % (0.0-6.0); HEMATOCRIT 30.8 % (34.2-44.1); HEMOGLOBIN 9.8 g/dL (12.0-16.0); LYMPHOCYTES # (AUTO) 1.1 (1.0-3.2); LYMPHOCYTES % 14.5 % (18.0-39.1); MEAN CORPUSCULAR HEMOGLOBIN 30.2 pg (28-32); MEAN CORPUSCULAR HGB CONC 31.8 g/dL (31-35); MEAN CORPUSCULAR VOLUME 94.8 fL (81-99); MONOCYTES # (AUTO) 0.6 (0.2-0.8); MONOCYTES % 8.6 % (4.4-11.3); NEUTROPHILS # (AUTO) 5.2 (2.1-6.9); NEUTROPHILS % 72.4 % (38.7-80.0); PLATELET COUNT 323 x10e3/uL (140-360); RED BLOOD COUNT 3.25 x10e6/uL (3.6-5.1)
[2017-08-19 08:45] VITALS: BP 166/69
[2017-08-19] MEDS ORDERED: LEVETIRACETAM 500 MG TAB PO SCH (09:00)
[2017-08-19] MEDS ORDERED: PREGABALIN 25 MG CAP PO SCH (09:00)
[2017-08-19 10:23] VITALS: BP 166/69
[2017-08-19] MEDS: METOPROLOL TARTRATE 25 MG TAB PO SCH (10:23)
[2017-08-19] MEDS: PROPRANOLOL HCL 10 MG TAB PO SCH ×2 (10:23→18:01)
[2017-08-19] MEDS: ASPIRIN 81 MG CHEW TAB PO SCH (10:23)
[2017-08-19] MEDS: ALLOPURINOL 300 MG TAB PO SCH (10:23)
[2017-08-19] MEDS: INSULIN LISPRO 100 UNIT/1 ML 3ML VIAL SQ SCH ×4 (10:23→21:20)
[2017-08-19] MEDS: CYANOCOBALAMIN 1,000 MCG TAB PO SCH (10:23)
[2017-08-19] MEDS: FUROSEMIDE INJ 100 MG in SODIUM CHLORIDE 0.9% 100 ML 90 ML IV SCH ×2 (10:24→21:08)
[2017-08-19] MEDS ORDERED: SODIUM BICARB PO (13:19)
[2017-08-19] MEDS ORDERED: POTASSIUM CHLORIDE 20 MEQ TAB CR PO NR (13:30)
--- NOTE | 2017-08-19 15:13 | History and Physical ---
CHIEF COMPLAINT: Shortness of breath, lower extremity edema. HPI: This is a 67-year-old morbidly obese female with known type 2 diabetes, uncontrolled; hypertension; CKD, stage 4-5 in which she follows up with nephrology as an outpatient, comes into the ED with complaints of severe shortness of breath ongoing for the last 1 day. Patient reports that she has been having this worsening shortness of breath for the last couple of weeks, but today it was very severe and came into the ED for further evaluation. She also reports bilateral lower extremity edema and unable to lay flat. She also has some orthopnea, dyspnea on exertion. She denies any chest pain, palpitation, nausea or vomiting. Patient is seen and evaluated at bedside on the medical floor, currently doing well, very comfortable on nasal cannula. She is not on any home O2 at all. Her V/Q scan was negative. REVIEW OF SYSTEMS: Pertinent positive: Bilateral lower extremity edema, orthopnea, dyspnea on exertion, anasarca. Pertinent negative: Denies any chest pain, palpitations, nausea, vomiting, diarrhea, dysuria, hematuria, frequency, urgency, lightheadedness, dizziness, abdominal pain, headache, or any other complaints. The rest of the 14-point review of systems have been reviewed with the patient and are negative. ALLERGIES: NO KNOWN DRUG ALLERGIES. HOME MEDICATIONS: Please see med reconciliation form. PAST MEDICAL HISTORY: Diabetes; obesity; hyperlipidemia; tremors; sleep apnea, on CPAP machine; CKD, stage 4-5; history of brain mass and tumor; osteoarthritis; right breast cancer in the past; bronchitis. PAST SURGICAL HISTORY: Knee surgery, tonsillectomy, right lumpectomy, recent kyphoplasty. FAMILY HISTORY: Heart disease, hypertension, and diabetes. SOCIAL HISTORY: Does not smoke. No drugs. Wears a CPAP machine. No alcohol. PHYSICAL EXAMINATION: VITAL SIGNS: Temperature is 98.1, pulse 61, respiratory rate is 22, blood pressure is 169/67, pulse ox 99%, and she is on 3 liters nasal cannula. GENERAL: Not in acute distress, alert and oriented x3, cooperative on exam, morbidly obese, on nasal cannula. HEENT: Head: Normocephalic, atraumatic. Eyes: Pupils equal, round, and reactive to light bilaterally. Extraocular movements intact bilaterally. Throat: No evidence of any erythema or exudates in the posterior pharynx. She has poor dentition. NECK: Supple with good range of motion. PULMONARY: She has decreased breath sounds bilaterally. She has fine crackles appreciated in the lower bases with rales. No rhonchi. CARDIOVASCULAR: Positive S1 and S2. No murmurs, rubs, or gallops appreciated. ABDOMEN: Soft, nondistended, nontender to palpation. Bowel sounds are present. MUSCULOSKELETAL: Strength is 5/5 throughout. No evidence of any musculoskeletal deficit on examination. No weakness appreciated. NEUROLOGICAL: Cranial nerves II through XII are grossly intact. No evidence of any neurological deficits on exam. SKIN: Intact. Warm to touch. Good cap refill. PSYCHIATRIC: Normal affect and mood. EXTREMITIES: She has 3+ to 4+ pedal edema with significant anasarca. LAB FINDINGS: Showed white count 8.3, hemoglobin 10, hematocrit is 31, platelets of 348,000. Coagulation: PT is 14, INR 1.1, PTT 27, D-dimer 2.4. Chemistry: Sodium 142, potassium 4.2, chloride 101, bicarb 29, anion gap of 16, BUN is 47, creatinine is 2.9 which is approximately around her baseline, glucose of 268, calcium 9.2, magnesium 1.6. Total bilirubin is 0.5, AST 11, ALT 17, CK 47, CK-MB 0.4, troponin 0.003, total protein 6.3, albumin 2.8, TSH is 2.5. MICROBIOLOGY: None. IMAGING STUDIES: V/Q scan showed a very low probability for acute pulmonary disease. There is also compatibility with diffuse parenchymal or obstructive lung disease, but no evidence of any PE. Chest x-ray, no acute abnormality. IMPRESSION: 1. Acute exacerbation of congestive heart failure, likely due to diastolic dysfunction--troponin is negative, cardiology consulted, start on Lasix drip at 10 mg per hour to remove all the fluid, replace electrolytes, cardiology ordered the 2-dimensional echocardiogram which is pending final results, ventilation/perfusion lung scan was negative. 2. Respiratory distress, likely due to congestive heart failure exacerbation--ventilation/perfusion lung scan negative, chest x-ray negative. No need for full-dose Lovenox, put on subcutaneous Lovenox for deep venous thrombosis prophylaxis. 3. Type 2 diabetes--insulin sliding scale, Accu-Cheks, A1c. 4. Hypertension--stable, continue same home medications, p.r.n. hydralazine. 5. Chronic kidney disease, stage 4-5--this is likely secondary to diabetic nephropathy. She rarely sees a morgue technician as an outpatient. At this time, will put her on Lasix drip 10 mg per hour. Monitor overnight. Patient's creatinine is at baseline, approximately her creatinine is around 3. Will continue to monitor. 6. Prophylaxis. Lovenox. 7. Fluids, electrolytes, nutrients--no intravenous fluids, heart healthy diet. 8. Physical therapy/occupational therapy--evaluation and treatment. 9. Disposition--inpatient, cardiology consulted, otherwise. Job#: [id number]
[2017-08-19 16:00] VITALS: BP 133/61
[2017-08-19] MEDS: ENOXAPARIN SOD INJ 40 MG/0.4 ML SYR SC SCH (18:02)
[2017-08-19] MEDS: LOPERAMIDE HCL 2 MG CAP PO PRN (18:10)
[2017-08-19 20:00] VITALS: BP 142/66
[2017-08-19] MEDS: ALBUTEROL/IPRATROPIUM 3 ML NEB NEB PRN (20:25)
[2017-08-19] MEDS: TRAMADOL HCL 50 MG TAB PO SCH (21:08)
[2017-08-19] MEDS: SIMVASTATIN 20 MG TAB PO SCH (21:08)
[2017-08-19] MEDS: ACETAMINOPHEN 325 MG TAB PO PRN (23:35)
[2017-08-20] VITALS (8 sets, daily range): BP systolic 115–172; BP diastolic 54–72
[2017-08-20] MEDS: FUROSEMIDE INJ 100 MG in SODIUM CHLORIDE 0.9% 100 ML 90 ML IV SCH ×2 (03:48→10:00)
[2017-08-20 07:13] LABS: ANION GAP 17.9 mmol/L (8-16); CALCIUM 8.3 mg/dL (8.4-10.2); CREATININE, SERUM 2.7 mg/dL (0.57-1.11); POTASSIUM 3.9 mmol/L (3.5-5.1)
[2017-08-20 08:07] LABS: BASOPHILS % 0.5 % (0.0-1.0); EOSINOPHILS # (AUTO) 0.3 (0.0-0.4); EOSINOPHILS % 3.9 % (0.0-6.0); HEMATOCRIT 30.3 % (34.2-44.1); HEMOGLOBIN 9.7 g/dL (12.0-16.0); LYMPHOCYTES # (AUTO) 1.4 (1.0-3.2); LYMPHOCYTES % 21.9 % (18.0-39.1); MEAN CORPUSCULAR HEMOGLOBIN 30.2 pg (28-32); MEAN CORPUSCULAR VOLUME 94.4 fL (81-99); MONOCYTES # (AUTO) 0.6 (0.2-0.8); MONOCYTES % 9.4 % (4.4-11.3); NEUTROPHILS # (AUTO) 4.2 (2.1-6.9); PLATELET COUNT 324 x10e3/uL (140-360); RED BLOOD COUNT 3.21 x10e6/uL (3.6-5.1); RED CELL DISTRIBUTION WIDTH 14.1 % (11.7-14.4)
[2017-08-20] MEDS: INSULIN LISPRO 100 UNIT/1 ML 3ML VIAL SQ SCH ×4 (09:20→20:50)
[2017-08-20] MEDS: CYANOCOBALAMIN 1,000 MCG TAB PO SCH (10:10)
[2017-08-20] MEDS: LOPERAMIDE HCL 2 MG CAP PO PRN (10:10)
[2017-08-20] MEDS: ASPIRIN 81 MG CHEW TAB PO SCH (10:10)
[2017-08-20] MEDS: PROPRANOLOL HCL 10 MG TAB PO SCH ×2 (10:10→17:38)
[2017-08-20] MEDS: ALLOPURINOL 300 MG TAB PO SCH (10:10)
[2017-08-20] MEDS: METOPROLOL TARTRATE 25 MG TAB PO SCH (10:10)
[2017-08-20] MEDS: ACETAMINOPHEN 325 MG TAB PO PRN ×2 (10:10→20:02)
[2017-08-20] MEDS: ENOXAPARIN SOD INJ 40 MG/0.4 ML SYR SC SCH (17:38)
[2017-08-20] MEDS: TRAMADOL HCL 50 MG TAB PO SCH (20:49)
[2017-08-20] MEDS: HYDRALAZINE HCL 25 MG TAB PO SCH (20:49)
[2017-08-20] MEDS: SIMVASTATIN 20 MG TAB PO SCH (20:49)
[2017-08-21] VITALS: BP 127/67
[2017-08-21 00:13] VITALS: BP 126/67
[2017-08-21] MEDS: FUROSEMIDE INJ 100 MG in SODIUM CHLORIDE 0.9% 100 ML 90 ML IV SCH ×2 (00:23→11:30)
[2017-08-21 04:00] VITALS: BP 156/70
[2017-08-21 07:14] LABS: BASOPHILS % 0.3 % (0.0-1.0); EOSINOPHILS # (AUTO) 0.2 (0.0-0.4); HEMATOCRIT 28.3 % (34.2-44.1); LYMPHOCYTES % 17.2 % (18.0-39.1); MEAN CORPUSCULAR HEMOGLOBIN 29.7 pg (28-32); MEAN CORPUSCULAR HGB CONC 31.8 g/dL (31-35); MEAN CORPUSCULAR VOLUME 93.4 fL (81-99); MONOCYTES # (AUTO) 0.8 (0.2-0.8); NEUTROPHILS # (AUTO) 3.8 (2.1-6.9); NEUTROPHILS % 66.2 % (38.7-80.0); PLATELET COUNT 308 x10e3/uL (140-360); RED BLOOD COUNT 3.03 x10e6/uL (3.6-5.1)
[2017-08-21 07:32] LABS: ANION GAP 16.6 mmol/L (8-16); CALCIUM 8.7 mg/dL (8.4-10.2); CREATININE, SERUM 2.8 mg/dL (0.57-1.11); POTASSIUM 3.6 mmol/L (3.5-5.1)
[2017-08-21 08:33] VITALS: BP 123/60
[2017-08-21 09:25] VITALS: BP 123/60
[2017-08-21] MEDS: ACETAMINOPHEN 325 MG TAB PO PRN (09:25)
[2017-08-21] MEDS: INSULIN LISPRO 100 UNIT/1 ML 3ML VIAL SQ SCH ×2 (09:25→12:30)
[2017-08-21] MEDS: ASPIRIN 81 MG CHEW TAB PO SCH (09:25)
[2017-08-21] MEDS: HYDRALAZINE HCL 25 MG TAB PO SCH (09:25)
[2017-08-21] MEDS: PROPRANOLOL HCL 10 MG TAB PO SCH (09:25)
[2017-08-21] MEDS: CYANOCOBALAMIN 1,000 MCG TAB PO SCH (09:25)
[2017-08-21] MEDS: ALLOPURINOL 300 MG TAB PO SCH (09:25)
[2017-08-21] MEDS: METOPROLOL TARTRATE 25 MG TAB PO SCH (09:25)
[2017-08-21] MEDS ORDERED: HYDRALAZINE HCL25 MG PO (14:50)
--- NOTE | 2017-08-21 16:55 | Discharge Summary ---
FINAL DISCHARGE DIAGNOSES 1. Acute exacerbation of congestive heart failure due to underlying diastolic dysfunction. 2. Morbidly obese. 3. Type 2 diabetes, uncontrolled. 4. Respiratory distress secondary to volume overload, now resolved. 5. Chronic kidney disease stage 4-5. 6. Hypertension. 7. Anasarca. VITAL SIGNS: Temperature 97.6, pulse 70, respiratory rate is 18, blood pressure was 123/60, pulse 97% on room air. LAB FINDINGS: Show white count is 5.7, hemoglobin is 9, hematocrit is 28, platelets of 308. Coagulation: PT 14, INR 1.1, PTT 27.7. D-dimer 2.42. Chemistry: Sodium 137, potassium 3.6, chloride 97, bicarb 27, anion gap is 16, BUN is 53, creatinine is 2.8, glucose is 201. Hemoglobin A1c is 6.6. LFTs were normal. Troponins were negative x3. LDL was 68. TSH is 3.5. Urinalysis was negative. MICROBIOLOGY: None. IMAGING STUDIES: V/Q scan showed very low probability for acute pulmonary embolism, otherwise negative study. Chest x-ray was negative. Venous lower extremity Doppler showed no evidence of DVT. HOSPITAL COURSE: This is a 67-year-old female, morbidly obese with known CHF, CKD stage 4-5, type 2 diabetes uncontrolled, and hypertension. Comes into the ED with underlying shortness of breath and volume overload. Patient was admitted, started on a Lasix drip and was treated for underlying acute exacerbation of CHF. Cardiology was consulted. Patient's respiratory status improved throughout the hospital course on IV Lasix drip. Patient's diabetes and blood pressure were well controlled. She does also have underlying CKD stage 4-5 with baseline creatinine, and currently her creatinine at discharge was 2.8 with no elevation. Her blood pressure was elevated. Started on hydralazine 25 mg t.i.d. On discharge the patient's lower extremity edema improved and her respiratory status was back to normal at baseline with no requirement of oxygen. She was ambulating well with no other issues. She denies any orthopnea or dyspnea on exertion. On the day of discharge, vital signs are stable, labs reviewed and stable. Patient seen and evaluated and examined thoroughly on the day of discharge with no other complaints. Patient verbalized understanding and agreed with plan of care to follow up accordingly as an outpatient with her primary care physician in 1 week, sterilizer machine operator in 1 week. MEDICATIONS: See med reconciliation form including Bumex 2 mg p.o. b.i.d., Aldactone 50 mg daily, hydralazine 25 mg 1 tab p.o. t.i.d. DISPOSITION: To home. CONDITION: Stable. DIET: Heart-healthy. FOLLOWUP: With her sterilizer machine operator in 1 week, PCP in 1 week. In the event of any worsening symptoms, the patient advised to come back to the ED for further evaluation. Discharge summary took greater than 35 minutes. NAZ PEREZ MD Job#: [id number] FRANK
== END 2017-08-21 13:05 | disposition home or self-care (01) | DRG 291 ==
LOC: ER 10:48 → MED/SURG 14:19
PROVIDERS: ADMIT Internal Medicine; ATTEND Internal Medicine
DX: I13.2 Hypertensive heart and chronic kidney disease with heart failure and with stage 5 chronic kidney disease, or end stage renal disease (principal); I50.31 Acute diastolic (congestive) heart failure; N17.9 Acute kidney failure, unspecified; Z68.42 Body mass index [BMI] 45.0-49.9, adult; E11.22 Type 2 diabetes mellitus with diabetic chronic kidney disease; N18.5 Chronic kidney disease, stage 5; R06.03 Acute respiratory distress; E66.01 Morbid (severe) obesity due to excess calories; R60.0 Localized edema
CPT/HCPCS: 36415; 71045; 78582; 80048; 80053; 80061; 81001; 82550; 82553; 82948; 83036; 83735; 83880; 84443; 84484; 85025; 85379; 85610; 85730; 93005; 93306; 93970; 94640; 96372; 99284; A9540; A9558; J1650; J1940

== ENCOUNTER 2017-09-11 19:10 | Inpatient (IN) | payer OTHER ==
[~2017-09-11] VITALS: Ht 170.2 cm; Wt 129.3 kg
[~2017-09-11 19:10] MED LIST changes: -CINNAMON500 MG; +CINNAMON500 MG PO; -GARLIC1000 MG; +GARLIC1000 MG PO; +HYDRALAZINE HCL25 MG PO; +SODIUM BICARB PO; -VITAMIN E400 UNI1; +VITAMIN E400 UNI1 PO
--- OUTSIDE RECORDS SUMMARY | 2017-09-11 19:13 | XMS REPORT | Continuity of Care Document ---
Author Author [facility] Organization [facility] Address [address] [place] [address] Phone Unavailable Care Team Providers Care Portable Canteen Operator Name Role Phone EVELIO VELASCO MD PCP Insurance Providers Guarantor Leila Mcrae Address [id number] [place] [address] Email [email or web address] Payer [employer] Policy Number [id number] Subscriber's Name Leila Mcrae Relationship 18 Self / Same As Patient Group Number [id number] Group Name [employer] - [employer] Effective Date 17 Advance Directives Directive Response Recorded Date/Time Does the patient have an advance directive? No 08/18/17 4:08pm If yes, is advance directive on file with [facility]? No 05/26/17 5:21pm If not on file with [facility] will patient provide a copy? Yes 06/22/17 8:14pm Do you have a Directive to Physician? Yes 08/18/17 10:58am Do you have a Medical Power of Assembler Final? Yes 08/18/17 10:57am Do you have an out of hospital Do Not Resuscitate Order? No 08/18/17 10:57am Do you have any special needs we should be aware of? No 08/18/17 10:57am Do you have a support person here with you today? Yes 08/18/17 10:58am Did patient receive Notice of Privacy Practices? Yes 08/18/17 10:58am Did patient receive patient rights and responsibilities? Yes 08/18/17 10:58am Problems Medical Problem Onset Date Status Bronchitis Unknown CHF (congestive heart failure) Unknown Dyspnea Unknown Renal insufficiency Unknown Medications Current Home Medications Medication Dose Units Route Directions Days Qty Instructions Start Date Allopurinol 300 Mg Tablet 150 Mg Oral Daily 30 Tab Aspirin (Aspir 81) 81 Mg Tablet.dr Daily Bumetanide 1 Mg Tablet 2 Mg Oral Daily 30 Tab Cinnamon Bark (Cinnamon) 500 Mg Capsule 1,000 Twice A Day Cyanocobalamin (Vitamin B-12) 1,000 Mcg Tab 1,000 Mcg Oral Daily 30 Tab Garlic 1,000 Mg Capsule Daily Hydralazine Hcl 25 Mg Tab 25 Mg Oral Three Times A Day Insulin Aspart (Novolog) 100 Units/1 Ml Inj 15 Units Three Times A Day Insulin Detemir (Levemir) 100 Unit/1 Ml Vial 40 Unit Subcutaneously Daily Lovastatin 40 Mg Tablet 40 Mg Oral Daily THERAPEUTICALLY SUBSTITUTED WITH SIMVASTATIN 20MG [place]-3 Fatty Acids/Fish Oil (Fish Oil 1,000 Mg Capsule) 1 Each Capsule Twice A Day Propranolol Hcl 10 Mg Tablet 20 Mg Oral Twice A Day Sodium Bicarb 20 Gr Oral Twice A Day Spironolactone 100 Mg Tablet 50 Mg Oral Daily Tramadol Hcl (Ultram) 50 Mg Tablet 50 Mg Oral Bedtime Vitamin E Mixed (Vitamin E) 400 Unit Capsule Daily Past Home Medications Medication Directions Ordered Status Glimepiride 2 Mg Tablet, 4 Mg Oral Twice A Day Discontinued Insulin Aspart (Novolog) 100 Unit/1 Ml Cartridge, 22 Unit Sub-Q Three Times Daily With Meals Discontinued Levetiracetam 500 Mg Tablet, 500 Mg Oral Twice A Day Discontinued Pregabalin (Lyrica) 25 Mg Cap, 25 Mg Oral Daily Discontinued Sitagliptin Phosphate (Januvia) 100 Mg Tablet, 100 Mg Oral Daily Discontinued Spironolactone 25 Mg Tablet, 25 Mg Oral Twice A Day Discontinued Spironolactone 25 Mg Tablet, 50 Mg Oral Daily Discontinued Social History Social History Problem Response Recorded Date/Time Onset Date Status Hx Psychiatric Problems No 08/18/2017 4:08pm Not Applicable Not Applicable Hx Eating Disorder No 08/18/2017 4:08pm Not Applicable Not Applicable Hx Substance Use Disorder No 08/18/2017 4:08pm Not Applicable Not Applicable Hx Depression No 08/18/2017 4:08pm Not Applicable Not Applicable Hx Alcohol Use No 08/18/2017 4:08pm Not Applicable Not Applicable Hx Substance Use Treatment No 08/18/2017 4:08pm Not Applicable Not Applicable Hx Physical Abuse No 08/18/2017 4:08pm Not Applicable Not Applicable Smoking Status Start Date Stop Date Never Smoker Hospital Discharge Instructions No hospital discharge instruction information available. Plan of Care Discharge Date 08/21/17 1:05pm Disposition HOME, SELF-CARE Instructions/Education Provided Congestive Heart Failure Prescriptions See Medication Section Referrals EVELIO VELASCO MD (Family Practice) Order Date: 1 Week Entered Date: 08/21/2017 2:41pm Address: [address] [place] [address] [address] [place] [address] MERLINE VILLANUEVA MD (Cardiology) Order Date: 1-2 Weeks Entered Date: 08/21/2017 2:41pm Address: [address] [place] [address] [address] [place] [address] Additional Instructions/Education ACTIVITY TOLERATED DIET TOLERATED TAKE MEDICATIONS INSTRUCTIONS KEEP ALL FOLLOW UP APPOINTMENTS Functional Status Query Response Date Recorded FUNCTIONAL STATUS ` August 19, 2017 10:30am Assistive Devices Rolling Walker August 18, 2017 4:16pm Ambulation Ability Minimum Assistance 1 person assist August 18, 2017 4:16pm Toileting Ability Independent August 19, 2017 5:59pm Allergies, Adverse Reactions, Alerts No known allergies. Immunizations No immunization information available. Vital Signs Acute Vital Signs Vital Response Date/Time Temperature (Fahrenheit) 97.6 degrees F (97.6 - 99.5) 08/21/2017 9:25am Pulse Pulse Rate (adult) 63 bpm (60 - 90) 08/21/2017 1:35pm Respiratory Rate 16 bpm (12 - 24) 08/21/2017 1:35pm Blood Pressure 123/60 mm Hg 08/21/2017 9:25am Height 5 ft 7 in 08/18/2017 11:08am Weight 293 lb 08/18/2017 11:08am Body Mass Index 45.9 kg/m^2 08/18/2017 4:08pm Results Laboratory Results Test Name Result Units Flags Reference Collection Date/Time Result Date/ Time Comments Stool Occult Blood NEGATIVE NEGATIVE 05/26/2017 3:00pm 05/26/2017 3: 48pm Influenza Virus Types A,B Antigen NEGATIVE NEGATIVE 06/12/2017 7:30pm 06/12/2017 9:50pm Lactic Acid Level 8.4 MG/DL 4.5-19.8 06/12/2017 7:30pm 06/12/2017 8: 47pm Urine Yeast MODERATE H NONE 06/22/2017 7:10pm 06/22/2017 7:35pm Amylase Level 75 U/L 25-125 06/22/2017 7:01pm 06/22/2017 7:39pm Lipase 97 U/L H 8-78 06/22/2017 7:01pm 06/22/2017 7:39pm White Blood Count 5.75 x10e3/uL 4.8-10.8 08/21/2017 6:36am 08/21/2017 7 :17am Red Blood Count 3.03 x10e6/uL L 3.6-5.1 08/21/2017 6:36am 08/21/2017 7: 17am Hemoglobin 9.0 g/dL L 12.0-16.0 08/21/2017 6:36am 08/21/2017 7:17am Hematocrit 28.3 % L 34.2-44.1 08/21/2017 6:36am 08/21/2017 7:17am Mean Corpuscular Volume 93.4 fL 81-99 08/21/2017 6:36am 08/21/2017 7: 17am Mean Corpuscular Hemoglobin 29.7 pg 28-32 08/21/2017 6:36am 08/21/2017 7:17am Mean Corpuscular Hemoglobin Concent 31.8 g/dL 31-35 08/21/2017 6:36am 08/21/2017 7:17am Red Cell Distribution Width 14.0 % 11.7-14.4 08/21/2017 6:36am 2017 7:17am Platelet Count 308 x10e3/uL 140-360 08/21/2017 6:08/21/2017 7: 17am Neutrophils (%) (Auto) 66.2 % 38.7-80.0 08/21/2017 6:08/21/2017 7: 17am Lymphocytes (%) (Auto) 17.2 % L 18.0-39.1 08/21/2017 6:08/21/2017 7 :17am Monocytes (%) (Auto) 13.0 % H 4.4-11.3 08/21/2017 6:08/21/2017 7: 17am Eosinophils (%) (Auto) 3.0 % 0.0-6.0 08/21/2017 6:08/21/2017 7: 17am Basophils (%) (Auto) 0.3 % 0.0-1.0 08/21/2017 6:08/21/2017 7:17am IM GRANULOCYTES % 0.3 % 0.0-1.0 08/21/2017 6:08/21/2017 7:17am Neutrophils # (Auto) 3.8 2.1-6.9 08/21/2017 6:08/21/2017 7:17am Lymphocytes # (Auto) 1.0 1.0-3.2 08/21/2017 6:08/21/2017 7:17am Monocytes # (Auto) 0.8 0.2-0.8 08/21/2017 6:08/21/2017 7:17am Eosinophils # (Auto) 0.2 0.0-0.4 08/21/2017 6:08/21/2017 7:17am Basophils # (Auto) 0.0 0.0-0.1 08/21/2017 6:08/21/2017 7:17am Absolute Immature Granulocyte (auto 0.02 x10e3/uL 0-0.1 08/21/2017 6: 08/21/2017 7:17am Prothrombin Time 14.2 seconds 11.9-14.5 08/18/2017 11:48am 08/18/2017 12:06pm Prothromb Time International Ratio 1.19 08/18/2017 11:48am 2017 12:06pm Oral Anticoagulant Therapy INR Values: 1. Low Intensity Therapy 1.5 - 2.0 2. Moderate Intensity Therapy 2.0 - 3.0 3. High Intensity Therapy(1) 2.5 - 3.5 4. High Intensity Therapy(2) 3.0 - 4.0 5. Panic Value INR > 5.0 Activated Partial Thromboplast Time 27.7 seconds 23.8-35.5 08/18/2017 11 :48am 08/18/2017 12:06pm D-Dimer Quantitative (PE/DVT) 2.42 ug/mLFEU H 0.00-0.45 08/18/2017 11: 48am 08/18/2017 12:46pm As with all in vitro diagnostic tests, the test results should be interpreted by the physician in conjunction with clinical findings and other test results. Test results are reported in NEW D-dimer units(ug/mLFEU). Urine Color YELLOW YELLOW 08/19/2017 5:2008/19/2017 6:12am Urine Clarity SL CLOUDY CLEAR 08/19/2017 5:08/19/2017 6:12am Urine Specific [place] 1.015 1.010-1.025 08/19/2017 5:2017 6:12am Urine pH 7 5 - 7 08/19/2017 5:08/19/2017 6:12am Urine Leukocyte Esterase NEGATIVE NEGATIVE 08/19/2017 5:2017 6:12am Urine Nitrite NEGATIVE NEGATIVE 08/19/2017 5:08/19/2017 6:12am Urine Protein 1+ H NEGATIVE 08/19/2017 5:08/19/2017 6:12am Urine Glucose (UA) NEGATIVE NEGATIVE 08/19/2017 5:2008/19/2017 6: 12am Urine Ketones NEGATIVE NEGATIVE 08/19/2017 5:2008/19/2017 6:12am Urine Urobilinogen 0.2 mg/dL 0.2 - 1 08/19/2017 5:2008/19/2017 6: 12am Urine Bilirubin NEGATIVE NEGATIVE 08/19/2017 5:08/19/2017 6: 12am Urine Blood 1+ H NEGATIVE 08/19/2017 5:2008/19/2017 6:12am Urine WBC NONE /HPF 0-5 08/19/2017 5:2008/19/2017 6:50am Urine RBC 6-10 /HPF H 0-5 08/19/2017 5:2008/19/2017 6:50am Urine Bacteria NONE /HPF NONE 08/19/2017 5:2008/19/2017 6:50am Urine Epithelial Cells RARE /LPF NONE 08/19/2017 5:2008/19/2017 6: 50am Sodium Level 137 mmol/L 136-145 08/21/2017 6:3608/21/2017 7:34am Potassium Level 3.6 mmol/L 3.5-5.1 08/21/2017 6:3608/21/2017 7:34am Chloride Level 97 mmol/L L 98-107 08/21/2017 6:3608/21/2017 7:34am Carbon Dioxide Level 27 mmol/L 22-29 08/21/2017 6:36am 08/21/2017 7: 34am Anion Gap 16.6 mmol/L H 8-16 08/21/2017 6:3608/21/2017 7:34am Blood Urea Nitrogen 53 mg/dL H 7-26 08/21/2017 6:3608/21/2017 7:34am Creatinine 2.80 mg/dL H 0.57-1.11 08/21/2017 6:3608/21/2017 7:34am BUN/Creatinine Ratio 19 6-25 08/21/2017 6:36am 08/21/2017 7:34am Estimat Glomerular Filtration Rate 17 ML/MIN L 60- 08/21/2017 6:36 7:34am Ranges were taken from the National Kidney Disease Education Program and the National Kid[employer] Foundation literature. Reference ranges: 60 or greater: Normal 16-59 (for 3 consecutive months): Chronic kidney disease 15 or less: Kidney failure Glucose Level 201 mg/dL H 74-118 08/21/2017 6:3608/21/2017 7:34am Calcium Level 8.7 mg/dL 8.4-10.2 08/21/2017 6:36am 08/21/2017 7:34am Bedside Glucose 195 mg/dL H 70-120 08/21/2017 11:31am 08/21/2017 12: 02pm Meter ID: [id number] Hemoglobin A1c Percent 6.6 % 4.0-7.0 08/19/2017 7:1208/19/2017 7: 42am Magnesium Level 1.6 MG/DL 1.3-2.1 08/18/2017 11:48am 08/18/2017 12: 16pm Total Bilirubin 0.5 mg/dL 0.2-1.2 08/18/2017 11:48am 08/18/2017 12: 16pm Aspartate Amino Transf (AST/SGOT) 11 IU/L 5-34 08/18/2017 11:48am 08/18 12:16pm Alanine Aminotransferase (ALT/SGPT) 17 IU/L 0-55 08/18/2017 11:48am 04/2018 12:16pm Total Protein 6.3 g/dL L 6.5-8.1 08/18/2017 11:48am 08/18/2017 12:16pm Albumin 2.8 g/dL L 3.5-5.0 08/18/2017 11:48am 08/18/2017 12:16pm Globulin 3.5 g/dL 2.3-3.5 08/18/2017 11:48am 08/18/2017 12:16pm Albumin/Globulin Ratio 0.8 0.8-2.0 08/18/2017 11:48am 08/18/2017 12: 16pm Alkaline Phosphatase 80 IU/L 40-150 08/18/2017 11:48am 08/18/2017 12: 16pm Triglycerides Level 119 MG/DL 0-149 08/19/2017 7:08/19/2017 7: 49am Cholesterol Level 118 MD/DL 0-199 08/19/2017 7:08/19/2017 7:49am Less than 200 mg/dL Low Risk 201 - 239 mg/dL Borderline Risk 240 mg/dl and greater High Risk LDL Cholesterol 68 MG/DL 60-130 08/19/2017 7:08/19/2017 7:49am HDL Cholesterol 26 MG/DL L 40-60 08/19/2017 7:08/19/2017 7:49am Cholesterol/HDL Ratio 4.5 H 3.0-3.6 08/19/2017 7:1208/19/2017 7: 49am B-Type Natriuretic Peptide 74.8 pg/mL 0-100 08/18/2017 8:25pm 2017 9:05pm Creatine Kinase 55 IU/L 29-168 08/19/2017 7:12am 08/19/2017 7:49am Creatine Kinase MB 0.50 ng/mL 0-5.0 08/19/2017 7:12am 08/19/2017 8: 07am Troponin I < 0.001 ng/mL 0-0.300 08/19/2017 7:12am 08/19/2017 8:07am Thyroid Stimulating Hormone (TSH) 3.548 uIU/mL 0.350-4.940 08/19/2017 7: 12am 08/19/2017 8:07am Microbiology Results Procedure Source Organism/Result Collection Date/Time Result Date/Time Result Status Blood Culture Blood NO GROWTH AFTER 5 DAYS, FINAL REPORT 06/12/2017 7:29pm 06/18/2017 12:53am Final Urine Culture Urine,Clean Catch HERNESTO GLABRATA 06/22/2017 7:10pm 2017 6:19am Final Procedures Procedure Status Date Provider(s) Breast lump removal Completed 08/09/17 PARISH OLIVER MD Computed tomography of brain without radiopaque contrast Active 05/26/17 NOHEMI CHRISTIAN MD X-ray of chest, single view Active 05/26/[address] of abdomen and pelvis without contrast Active 06/22/17 OCTAVIO GODWIN ADMINISTRATIVE OPERATIONS COORDINATOR Encounters Encounter Location Arrival/Admit Date Discharge/Depart Date Attending Provider Discharged Inpatient [facility] 08/18/17 2:19pm 08/21/17 1:05pm NAZ PEREZ MD Registered Surgical Day Care [facility] 08/09/17 6:55am PARISH OLIVER MD Departed Emergency Room [facility] 06/22/17 5:43pm 9:18pm VIRGINIA BARAKAT MD Discharged Inpatient [facility] 06/12/17 11:50pm 11:05am NAZ PEREZ MD Departed Emergency Room [facility] 05/26/17 12:02pm 05/26 7:34pm NOHEMI CHRISTIAN MD
--- OUTSIDE RECORDS SUMMARY | 2017-09-11 19:13 | XMS REPORT | Clinical Summary ---
Author Author [facility] Address Unknown Phone Unavailable Care Team Providers Care Drilling Fluids Specialist Name Role Phone PCP Unavailable Allergies Not on File Current Medications Not on file Active Problems Not on file Social History Tobacco Use Types Packs/Day Years Used Date Never Assessed Sex Assigned at Date Recorded Not on file Last Filed Vital Signs Not on file Plan of Treatment Not on file Results Not on fileafter 09/10/2016
[2017-09-11] MEDS ORDERED: VITAMIN B-121000 MC1 PO (19:17)
[2017-09-11] MEDS ORDERED: FISH OIL 1,0001 EAC2 PO (19:17)
[2017-09-11] MEDS ORDERED: VITAMIN B-1250 MG PO (19:17)
[2017-09-11] MEDS ORDERED: SODIUM BICARBO650 MG PO (19:17)
[2017-09-11] MEDS ORDERED: ACETAMINOPHEN 1000 MG/100 ML IV STA (19:45)
[2017-09-11] MEDS ORDERED: CEFTRIAXONE SOD 1 GM VIAL IV SCH (19:45)
[2017-09-11] MEDS ORDERED: ACETAMINOPHEN 325 MG TAB PO ONE (19:45)
[2017-09-11] MEDS ORDERED: ACETAMINOPHEN 1000 MG/100 ML 100 ML IV ONE (19:46)
[2017-09-11 20:10] LABS: BASOPHILS % 0.2 % (0.0-1.0); EOSINOPHILS % 0.1 % (0.0-6.0); HEMATOCRIT 35.4 % (34.2-44.1); HEMOGLOBIN 11.5 g/dL (12.0-16.0); LYMPHOCYTES # (AUTO) 0.3 (1.0-3.2); LYMPHOCYTES % 1.6 % (18.0-39.1); MEAN CORPUSCULAR HEMOGLOBIN 29.7 pg (28-32); MEAN CORPUSCULAR HGB CONC 32.5 g/dL (31-35); MEAN CORPUSCULAR VOLUME 91.5 fL (81-99); MONOCYTES # (AUTO) 0.4 (0.2-0.8); MONOCYTES % 2.3 % (4.4-11.3); NEUTROPHILS # (AUTO) 17.1 (2.1-6.9); NEUTROPHILS % 95.2 % (38.7-80.0); PLATELET COUNT 234 x10e3/uL (140-360); RED BLOOD COUNT 3.87 x10e6/uL (3.6-5.1); RED CELL DISTRIBUTION WIDTH 14.5 % (11.7-14.4)
--- NOTE | 2017-09-11 20:10 | Diagnostic Imaging Report ---
EXAM: CHEST SINGLE (PORTABLE), AP 1 view INDICATION: High fever COMPARISON: AP view of the chest August 18, 2017 FINDINGS: LINES/TUBES: None LUNGS: No consolidations or edema. PLEURA: No effusions or pneumothorax. HEART AND MEDIASTINUM: The heart is within normal size limits. Stable enlargement of the pulmonary artery centrally. BONES AND SOFT TISSUES: No acute findings. Vertebroplasty changes upper thoracic spine. IMPRESSION: No acute thoracic abnormality. Signed by: Dr. Cristiane Hewitt M.D. on 09/11/2017 8:07 PM
[2017-09-11 20:39] LABS: ALBUMIN/GLOBULIN RATIO 0.7 (0.8-2.0); ANION GAP 18.8 mmol/L (8-16); CREATININE, SERUM 3.35 mg/dL (0.57-1.11); POTASSIUM 3.8 mmol/L (3.5-5.1)
[2017-09-11 20:45] LABS: CLARITY,URINE HAZY (CLEAR); COLOR,URINE YELLOW (YELLOW)
[2017-09-11 20:46] LABS: LEUKOCYTE ESTERASE ,URINE NEGATIVE (NEGATIVE); NITRITE,URINE NEGATIVE (NEGATIVE); PROTEIN,URINE DIPSTICK 3+ (NEGATIVE)
[2017-09-11 20:47] LABS: BILIRUBIN,URINE NEGATIVE (NEGATIVE); KETONES,URINE NEGATIVE (NEGATIVE); URINE UROBILINOGEN 0.2 mg/dL (0.2 - 1)
[2017-09-11 21:34] LABS: RBC,URINE >50 /HPF (0-5)
[2017-09-11 21:35] LABS: BACTERIA,URINE FEW /HPF; EPITHELIAL CELLS,URINE RARE /LPF
--- OUTSIDE RECORDS SUMMARY | 2017-09-11 22:11 | XMS REPORT | Clinical Summary ---
Author Author [facility] Address Unknown Phone Unavailable Care Team Providers Care Flipping Machine Operator Name Role Phone PCP Unavailable Allergies Not on File Current Medications Not on file Active Problems Not on file Social History Tobacco Use Types Packs/Day Years Used Date Never Assessed Sex Assigned at Date Recorded Not on file Last Filed Vital Signs Not on file Plan of Treatment Not on file Results Not on fileafter 09/10/2016
[2017-09-11] MEDS ORDERED: ONDANSETRON HCL 4 MG ORAL DISINTEGRATING TAB PO PRN (22:15)
[2017-09-11] MEDS ORDERED: ACETAMINOPHEN 325 MG TAB PO PRN (22:15)
[2017-09-11] MEDS ORDERED: AZITHROMYCIN 500MG/NS 250 ML 250 ML IV SCH (22:15)
[2017-09-11] MEDS ORDERED: SODIUM CHLORIDE FLUSH 10 ML SYR INJ PRN (22:15)
[2017-09-11] MEDS ORDERED: DEXTROSE 50% SYRINGE 50 ML IV PRN (22:15)
[2017-09-11 22:32] LABS: BAND NEUTROPHILS % (MANUAL) 2 %; EOSINOPHILS % (MANUAL) 1 % (0-7); LYMPHOCYTES % (MANUAL) 4 % (19-48); MONOCYTES % (MANUAL) 1 % (3.4-9.0); NEUTROPHILS % (MANUAL) 92 % (40-74); PLATELET ESTIMATE ADEQUATE; PLATELET MORPHOLOGY COMMENT NORMAL; RBC MORPHOLOGY COMMENT NORMAL
[2017-09-11] MEDS: CEFTRIAXONE SOD 1 GM VIAL IV SCH (23:08)
[2017-09-12] VITALS (8 sets, daily range): BP systolic 134–178; BP diastolic 59–81
[2017-09-12] MEDS: TRAMADOL HCL 50 MG TAB PO SCH ×2 (00:50→21:30)
[2017-09-12 06:20] LABS: BASOPHILS % 0.1 % (0.0-1.0); HEMATOCRIT 31.1 % (34.2-44.1); HEMOGLOBIN 9.9 g/dL (12.0-16.0); LYMPHOCYTES # (AUTO) 0.3 (1.0-3.2); LYMPHOCYTES % 3.6 % (18.0-39.1); MEAN CORPUSCULAR HEMOGLOBIN 29.3 pg (28-32); MEAN CORPUSCULAR HGB CONC 31.8 g/dL (31-35); MONOCYTES # (AUTO) 0.4 (0.2-0.8); MONOCYTES % 4.2 % (4.4-11.3); NEUTROPHILS % 91.6 % (38.7-80.0); PLATELET COUNT 205 x10e3/uL (140-360); RED BLOOD COUNT 3.38 x10e6/uL (3.6-5.1); RED CELL DISTRIBUTION WIDTH 14.4 % (11.7-14.4)
[2017-09-12 06:48] LABS: ALBUMIN 2.6 g/dL (3.5-5.0); ALBUMIN/GLOBULIN RATIO 0.8 (0.8-2.0); ANION GAP 16.6 mmol/L (8-16); CREATININE, SERUM 3.15 mg/dL (0.57-1.11); POTASSIUM 3.6 mmol/L (3.5-5.1)
[2017-09-12] MEDS ORDERED: INSULIN REGULAR, HUMAN 100 UNIT/1 ML 3ML VIAL SQ SCH (07:30)
[2017-09-12] MEDS ORDERED: THIAMINE HCL 250 MG PO SCH (09:00)
[2017-09-12] MEDS ORDERED: SPIRONOLACTONE 25 MG TAB PO SCH ×2 (09:00→21:00)
[2017-09-12] MEDS ORDERED: ASPIRIN 81 MG CHEW TAB PO SCH ×2 (09:00→21:00)
[2017-09-12] MEDS ORDERED: NON-FORMULARY MEDICATION (Spironolactone 100 MG) PO SCH (09:00)
[2017-09-12] MEDS ORDERED: SIMVASTATIN 20 MG TAB PO SCH ×2 (09:00→21:00)
[2017-09-12] MEDS: BUMETANIDE 1 MG TAB PO SCH ×2 (09:01→17:58)
[2017-09-12] MEDS: PROPRANOLOL HCL 10 MG TAB PO SCH ×2 (09:02→17:58)
[2017-09-12] MEDS: CYANOCOBALAMIN 1,000 MCG TAB PO SCH (09:02)
[2017-09-12] MEDS: THIAMINE HCL 100 MG TAB PO SCH (09:02)
[2017-09-12] MEDS: VITAMIN E 400 UNIT CAP PO SCH (09:02)
[2017-09-12] MEDS: SODIUM BICARBONATE 650 MG TAB PO SCH ×2 (09:02→17:58)
[2017-09-12] MEDS: ALLOPURINOL 300 MG TAB PO SCH (09:02)
[2017-09-12] MEDS ORDERED: DEXTROSE 50% SYRINGE 50 ML IV PRN (09:15)
[2017-09-12] MEDS: INSULIN LISPRO 100 UNIT/1 ML 3ML VIAL SQ SCH ×5 (11:37→21:00)
--- NOTE | 2017-09-12 13:55 | Diagnostic Imaging Report ---
EXAM: CT Chest WITHOUT contrast INDICATION: \S\WEAKESS \[id number] \S\[id number] COMPARISON: Chest x-ray dated 09/11/2017 TECHNIQUE: Chest was scanned utilizing a multidetector helical scanner from the lung apex through the level of the adrenal glands without administration of IV contrast. Absence of intravenous contrast decreases sensitivity for detection of lymphadenopathy and vascular pathology. Coronal and sagittal reformations were obtained. Routine protocol was performed. IV CONTRAST: None COMPLICATIONS: None RADIATION DOSE: Total DLP: 544.88 mGy*cm Estimated effective dose: (DLP x 0.014 x size factor) mSv CTDIvol has been reviewed. It is below the limits set by the Radiation Protocol Committee (RPC). FINDINGS: LINES/ TUBES: None. LUNGS AND AIRWAYS: The lungs are unremarkable. Airways are normal. PLEURA: Small bilateral pleural effusions, left greater than right. HEART AND MEDIASTINUM: Multinodular heterogeneous thyroid gland with some calcified nodules. Multiple subcentimeter mediastinal lymph nodes, the largest in the anterior mediastinum measuring 1 cm (series 2, image 23). Limited for evaluation of hilar regions without intravenous contrast. Calcified left hilar lymph nodes. No left axillary lymphadenopathy. 8 x 4.5 cm right axillary collection with surrounding fat stranding (series 41, image 49). The heart is normal in size.. There is no pericardial effusion. Main pulmonary artery measures 3.4 cm, suggestive of pulmonary hypertension. UPPER ABDOMEN: Unremarkable. BONES: Compression deformity of T7 vertebral body with evidence of vertebroplasty. There is also T8 vertebral body superior endplate compression deformity with exaggerated kyphosis of the thoracic spine at this level. Subacute fractures of the bilateral 4th, 5th, 6th, and 7th rib fractures, some mild and some moderately displaced. Mildly displaced posterior left third rib fracture. Advanced degenerative changes of the right shoulder. SOFT TISSUES: Unremarkable. IMPRESSION: 1. Multinodular heterogeneous thyroid gland, some nodules calcified. Recommend correlation with thyroid ultrasound. 2. 8 cm right axillary collection with surrounding fat stranding, may represent an abscess. Other differential considerations are large necrotic mass or lymph node, considering history of right breast cancer. Limited evaluation without intravenous contrast. 3. Multiple subacute bilateral rib fractures as detailed above. No pneumothorax. 4. Trace bilateral pleural effusions, left greater than right. 5. T7 and T8 vertebral body compression deformities with evidence of T7 vertebroplasty. Signed by: Dr. Brad Rizo MD on 09/12/2017 1:51 PM
[2017-09-12] MEDS ORDERED: INSULIN DETEMIR 100 UNIT/ML PEN SQ SCH (21:00)
[2017-09-12] MEDS: CEFTRIAXONE SOD 1 GM VIAL IV SCH (22:30)
[2017-09-13] VITALS (7 sets, daily range): BP systolic 129–172; BP diastolic 51–80
[2017-09-13 06:46] LABS: BASOPHILS % 0.2 % (0.0-1.0); EOSINOPHILS # (AUTO) 0.2 (0.0-0.4); EOSINOPHILS % 2.3 % (0.0-6.0); HEMATOCRIT 29.1 % (34.2-44.1); HEMOGLOBIN 9.2 g/dL (12.0-16.0); LYMPHOCYTES # (AUTO) 0.8 (1.0-3.2); LYMPHOCYTES % 11.5 % (18.0-39.1); MEAN CORPUSCULAR HEMOGLOBIN 29.5 pg (28-32); MEAN CORPUSCULAR HGB CONC 31.6 g/dL (31-35); MEAN CORPUSCULAR VOLUME 93.3 fL (81-99); MONOCYTES # (AUTO) 0.6 (0.2-0.8); NEUTROPHILS # (AUTO) 5.1 (2.1-6.9); NEUTROPHILS % 76.5 % (38.7-80.0); PLATELET COUNT 168 x10e3/uL (140-360); RED BLOOD COUNT 3.12 x10e6/uL (3.6-5.1); RED CELL DISTRIBUTION WIDTH 14.6 % (11.7-14.4)
[2017-09-13 07:24] LABS: ANION GAP 16.7 mmol/L (8-16); CALCIUM 8.8 mg/dL (8.4-10.2); CREATININE, SERUM 3.43 mg/dL (0.57-1.11); POTASSIUM 3.7 mmol/L (3.5-5.1)
[2017-09-13] MEDS: INSULIN LISPRO 100 UNIT/1 ML 3ML VIAL SQ SCH ×6 (07:30→17:13)
[2017-09-13] MEDS ORDERED: INSULIN DETEMIR 100 UNIT/ML PEN SQ SCH (09:00)
[2017-09-13] MEDS: BUMETANIDE 1 MG TAB PO SCH ×2 (11:33→17:12)
[2017-09-13] MEDS: VITAMIN E 400 UNIT CAP PO SCH (11:34)
[2017-09-13] MEDS: SODIUM BICARBONATE 650 MG TAB PO SCH ×2 (11:34→17:12)
[2017-09-13] MEDS: PROPRANOLOL HCL 10 MG TAB PO SCH ×2 (11:34→17:12)
[2017-09-13] MEDS: THIAMINE HCL 100 MG TAB PO SCH (11:34)
[2017-09-13] MEDS: ALLOPURINOL 300 MG TAB PO SCH (11:34)
[2017-09-13] MEDS: CYANOCOBALAMIN 1,000 MCG TAB PO SCH (11:34)
[2017-09-13] MEDS ORDERED: LEVAQUIN500 MG PO (17:46)
[2017-09-13] MEDS ORDERED: ACIDOPHILUS LA1 EACH PO (17:47)
--- NOTE | 2017-09-13 21:50 | Discharge Summary ---
Patient placed in observation. Observation date is September 12, 2017. FINAL DIAGNOSES: 1. Acute bronchitis. 2. Urinary tract infection. 3. Resolved fever and leukocytosis. 4. Baseline chronic kidney disease. 5. Incidental finding of the right 8 cm axillary collection. SUMMARY: [age]-old female with fever, urinary tract infection, and acute bronchitis. The patient is doing much better. No cough, no shortness of breath. Leukocytosis resolved with WBC 6.6. Patient does have chronic kidney disease, she is on diuretic. She does have history of diastolic dysfunction, congestive heart failure which is stable. No exacerbation. The patient is stable. She will go home today. She will take Levaquin 500 mg daily for 7 days 2 tablets at night. The patient is stable and discharged home. Follow up with Dr. Rodolfo Arenas regarding this CT chest finding of the right axillary areas of fluid collection. The patient is stable and discharged home. Resume home medication as instructed. Job#: [id number]
== END 2017-09-13 17:55 | disposition home or self-care (01) | DRG 202 ==
LOC: ER 19:10 → ERHOLD 22:08 → MED/SURG3 23:59
PROVIDERS: ADMIT Internal Medicine; ATTEND Internal Medicine
DX: J20.9 Acute bronchitis, unspecified (principal); N39.0 Urinary tract infection, site not specified; I13.0 Hypertensive heart and chronic kidney disease with heart failure and stage 1 through stage 4 chronic kidney disease, or unspecified chronic kidney disease; I50.32 Chronic diastolic (congestive) heart failure; N18.9 Chronic kidney disease, unspecified
CPT/HCPCS: 36415; 71045; 71250; 80048; 80053; 81001; 82948; 83605; 85025; 87040; 87086; 87400; 93005; 99284; J0456; J0696; J3411

== ENCOUNTER 2017-10-06 00:43 | Observation (INO) | payer OTHER ==
[2017-10-06] VITALS (9 sets, daily range): BP systolic 128–171; BP diastolic 58–77
[~2017-10-06] VITALS: Ht 170.2 cm; Wt 129.3 kg
[~2017-10-06 00:43] MED LIST changes: +ACIDOPHILUS LA1 EACH PO; -ASPIR 8181 MG; +ASPIR 8181 MG PO; +FISH OIL 1,0001 EAC2 PO; +LEVAQUIN500 MG PO; +SODIUM BICARBO650 MG PO; +VITAMIN B-121000 MC1 PO; +VITAMIN B-1250 MG PO
--- OUTSIDE RECORDS SUMMARY | 2017-10-06 00:46 | XMS REPORT | Continuity of Care Document ---
Author Author [facility] Organization [facility] Address [address] [place] [address] Phone Unavailable Care Team Providers Care Materials Planning Analyst Name Role Phone EVELIO VELASCO MD PCP Insurance Providers Guarantor Leila Mcrae Address [id number] [place] [address] Email [email or web address] Payer [facility] Policy Number [id number] Subscriber's Name McraeLeila Relationship 18 Self / Same As Patient Group Number [id number] Group Name [employer] - Medicare Advantage Divis Effective Date 17 Advance Directives Directive Response Recorded Date/Time Does the patient have an advance directive? No 09/12/17 12:41am If yes, is advance directive on file with [facility]? No 09/12/17 12:41am If not on file with [facility] will patient provide a copy? Yes 09/12/17 12:41am Do you have a Directive to Physician? No 09/11/17 10:09pm Do you have a Medical Power of Supervisor Offset Plate Preparation? No 09/11/17 10:09pm Do you have an out of hospital Do Not Resuscitate Order? No 09/11/17 10:09pm Do you have any special needs we should be aware of? No 09/11/17 10:09pm Do you have a support person here with you today? No 09/11/17 10:09pm Did patient receive Notice of Privacy Practices? Yes 09/11/17 10:09pm Did patient receive patient rights and responsibilities? Yes 09/11/17 10:09pm Problems Medical Problem Onset Date Status Bronchitis Unknown CHF (congestive heart failure) Unknown CKD (chronic kidney disease) Unknown Dyspnea Unknown Fever Unknown Renal insufficiency Unknown UTI (urinary tract infection) Unknown Medications Current Home Medications Medication Dose Units Route Directions Days Qty Instructions Start Date Allopurinol 300 Mg Tablet 150 Mg Oral Daily 30 Tab Aspirin (Aspir 81) 81 Mg Tablet.dr Daily Bumetanide 1 Mg Tablet 2 Mg Oral Twice A Day 30 Tab Cinnamon Bark (Cinnamon) 500 Mg Capsule 1,000 Mg Oral Twice A Day Cyanocobalamin (Vitamin B-12) (Vitamin B-12) 1,000 Mcg Tablet.er 1,000 Mcg Oral Daily Garlic 1,000 Mg Capsule 1,000 Mg Oral Daily Insulin Aspart (Novolog) 100 Units/1 Ml Inj 15 Units Three Times A Day Insulin Detemir (Levemir) 100 Unit/1 Ml Vial 40 Unit Subcutaneously Daily Lactobacillus Acidophilus (Acidophilus Lactobacillus) 1 Each Capsule 2 Cap Oral Daily Levofloxacin (Levaquin) 500 Mg Tablet 500 Mg Oral Daily 7 Days Lovastatin 40 Mg Tablet 40 Mg Oral Daily THERAPEUTICALLY SUBSTITUTED WITH SIMVASTATIN 20MG Osborne-3 Fatty Acids/Fish Oil (Fish Oil 1,000 Mg Capsule) 1 Each Capsule 1,000 Mg Oral Twice A Day Propranolol Hcl 10 Mg Tablet 20 Mg Oral Twice A Day Sodium Bicarbonate 650 Mg Tablet 1,300 Mg Oral Twice A Day 30 Tab Spironolactone 100 Mg Tablet 100 Mg Oral Daily Thiamine Hcl (Vitamin B-1) 250 Mg Tablet 250 Mg Oral Daily Tramadol Hcl (Ultram) 50 Mg Tablet 50 Mg Oral Bedtime Vitamin E Mixed (Vitamin E) 400 Unit Capsule 400 Units Oral Daily Past Home Medications Medication Directions Ordered [...] Onset Date Status Hx Psychiatric Problems No 09/12/2017 12:41am Not Applicable Not Applicable Hx Eating Disorder No 09/12/2017 12:41am Not Applicable Not Applicable Hx Substance Use Disorder No 09/12/2017 12:41am Not Applicable Not Applicable Hx Depression No 09/12/2017 12:41am Not Applicable Not Applicable Hx Alcohol Use No 09/12/2017 12:41am Not Applicable Not Applicable Hx Substance Use Treatment No 09/12/2017 12:41am Not Applicable Not Applicable Hx Physical Abuse No 09/12/2017 12:41am Not Applicable Not Applicable Smoking Status Start Date Stop Date Never Smoker Hospital Discharge Instructions No hospital discharge instruction information available. Plan of Care Discharge Date 09/13/17 5:55pm Disposition HOME, SELF-CARE Instructions/Education Provided Urinary Tract Infection - Women Prescriptions See Medication Section Additional Instructions/Education 1800 Diabetic diet Activities as tolerated Follow up WITH DR. OLIVER ON CT CHEST RESULT next week Functional Status Query Response Date Recorded Assistive Devices Standard Walker September 12, 2017 7:10am Ambulation Ability Minimum Assistance September 12, 2017 7:10am Toileting Ability Minimum Assistance September 13, 2017 9:00am Allergies, Adverse Reactions, Alerts No known allergies. Immunizations No immunization information available. Vital Signs Acute Vital Signs Vital Response Date/Time Temperature (Fahrenheit) 97.9 degrees F (97.6 - 99.5) 09/13/2017 4:00pm Pulse Pulse Rate (adult) 78 bpm (60 - 90) 09/13/2017 4:00pm Respiratory Rate 20 bpm (12 - 24) 09/13/2017 4:00pm Blood Pressure 131/68 mm Hg 09/13/2017 4:00pm Height 5 ft 7 in 09/11/2017 7:23pm Weight 285 lb 09/12/2017 12:51am Body Mass Index 44.6 kg/m^2 09/12/2017 12:51am Results Laboratory Results Test Name Result Units Flags Reference Collection Date/Time Result Date/ Time Comments Stool Occult Blood NEGATIVE NEGATIVE 05/26/2017 3:00pm 05/26/2017 3: 48pm Urine Yeast MODERATE H NONE 06/22/2017 7:10pm 06/22/2017 7:35pm Amylase Level 75 U/L 25-125 06/22/2017 7:01pm 06/22/2017 7:39pm Lipase 97 U/L H 8-78 06/22/2017 7:01pm 06/22/2017 7:39pm Prothrombin Time 14.2 seconds 11.9-14.5 08/18/2017 11:48am [...] results are reported in NEW D-dimer units(ug/mLFEU). Hemoglobin A1c Percent 6.6 % 4.0-7.0 08/19/2017 7:12am 08/19/2017 7: 42am Magnesium Level 1.6 MG/DL 1.3-2.1 08/18/2017 11:48am 08/18/2017 12: 16pm Triglycerides Level 119 MG/DL 0-149 08/19/2017 7:12am 08/19/2017 7: 49am Cholesterol Level 118 MD/DL 0-199 08/19/2017 7:12am 08/19/2017 7:49am Less than 200 mg/dL Low Risk 201 - 239 mg/dL Borderline Risk 240 mg/dl and greater High Risk LDL Cholesterol 68 MG/DL 60-130 08/19/2017 7:08/19/2017 7:49am HDL Cholesterol 26 MG/DL L 40-60 08/19/2017 7:08/19/2017 7:49am Cholesterol/HDL Ratio 4.5 H 3.0-3.6 08/19/2017 7:08/19/2017 7: 49am B-Type Natriuretic Peptide 74.8 pg/mL 0-100 08/18/2017 8:25pm 2017 9:05pm Creatine Kinase 55 IU/L 29-168 08/19/2017 7:08/19/2017 7:49am Creatine Kinase MB 0.50 ng/mL 0-5.0 08/19/2017 7:08/19/2017 8: 07am Troponin I < 0.001 ng/mL 0-0.300 08/19/2017 7:08/19/2017 8:07am Thyroid Stimulating Hormone (TSH) 3.548 uIU/mL 0.350-4.940 08/19/2017 7: 08/19/2017 8:07am White Blood Count 6.63 x10e3/uL 4.8-10.8 09/13/2017 6:09/13/2017 6 :52am Red Blood Count 3.12 x10e6/uL L 3.6-5.1 09/13/2017 6:09/13/2017 6: 52am Hemoglobin 9.2 g/dL L 12.0-16.0 09/13/2017 6:09/13/2017 6:52am Hematocrit 29.1 % L 34.2-44.1 09/13/2017 6:09/13/2017 6:52am Mean Corpuscular Volume 93.3 fL 81-99 09/13/2017 6:09/13/2017 6: 52am Mean Corpuscular Hemoglobin 29.5 pg 28-32 09/13/2017 6:09/13/2017 6:52am Mean Corpuscular Hemoglobin Concent 31.6 g/dL 31-35 09/13/2017 6:09/13/2017 6:52am Red Cell Distribution Width 14.6 % H 11.7-14.4 09/13/2017 6:2017 6:52am Platelet Count 168 x10e3/uL 140-360 09/13/2017 6:09/13/2017 6: 52am Neutrophils (%) (Auto) 76.5 % 38.7-80.0 09/13/2017 6:09/13/2017 6: 52am Lymphocytes (%) (Auto) 11.5 % L 18.0-39.1 09/13/2017 6:09/13/2017 6 :52am Monocytes (%) (Auto) 9.0 % 4.4-11.3 09/13/2017 6:09/13/2017 6: 52am Eosinophils (%) (Auto) 2.3 % 0.0-6.0 09/13/2017 6:09/13/2017 6: 52am Basophils (%) (Auto) 0.2 % 0.0-1.0 09/13/2017 6:09/13/2017 6:52am IM GRANULOCYTES % 0.5 % 0.0-1.0 09/13/2017 6:09/13/2017 6:52am Neutrophils # (Auto) 5.1 2.1-6.9 09/13/2017 6:09/13/2017 6:52am Lymphocytes # (Auto) 0.8 L 1.0-3.2 09/13/2017 6:09/13/2017 6: 52am Monocytes # (Auto) 0.6 0.2-0.8 09/13/2017 6:09/13/2017 6:52am Eosinophils # (Auto) 0.2 0.0-0.4 09/13/2017 6:09/13/2017 6:52am Basophils # (Auto) 0.0 0.0-0.1 09/13/2017 6:09/13/2017 6:52am Absolute Immature Granulocyte (auto 0.03 x10e3/uL 0-0.1 09/13/2017 6: 09/13/2017 6:52am Differential Total Cells Counted 100 09/11/2017 7:44pm 09/11/2017 10:32pm Neutrophils % (Manual) 92 % H 40-74 09/11/2017 7:44pm 09/11/2017 10: 32pm Band Neutrophils % 2 % 09/11/2017 7:44pm 09/11/2017 10:32pm Lymphocytes % (Manual) 4 % L 19-48 09/11/2017 7:44pm 09/11/2017 10:32pm Monocytes % (Manual) 1 % L 3.4-9.0 09/11/2017 7:44pm 09/11/2017 10:32pm Eosinophils % (Manual) 1 % 0-7 09/11/2017 7:44pm 09/11/2017 10:32pm Platelet Estimate ADEQUATE 09/11/2017 7:44pm 09/11/2017 10:32pm Platelet Morphology Comment NORMAL 09/11/2017 7:44pm 09/11/2017 10: 32pm Red Cell Morphology Comment NORMAL 09/11/2017 7:44pm 09/11/2017 10: 32pm Urine Color YELLOW YELLOW 09/11/2017 7:56pm 09/11/2017 8:47pm Urine Clarity HAZY CLEAR 09/11/2017 7:56pm 09/11/2017 8:47pm Urine Specific [place] 1.020 1.010-1.025 09/11/2017 7:56pm 2017 8:47pm Urine pH 6 5 - 7 09/11/2017 7:56pm 09/11/2017 8:47pm Urine Leukocyte Esterase NEGATIVE NEGATIVE 09/11/2017 7:56pm 2017 8:47pm Urine Nitrite NEGATIVE NEGATIVE 09/11/2017 7:56pm 09/11/2017 8:47pm Urine Protein 3+ H NEGATIVE 09/11/2017 7:56pm 09/11/2017 8:47pm Urine Glucose (UA) NEGATIVE NEGATIVE 09/11/2017 7:56pm 09/11/2017 8: 47pm Urine Ketones NEGATIVE NEGATIVE 09/11/2017 7:56pm 09/11/2017 8:47pm Urine Urobilinogen 0.2 mg/dL 0.2 - 1 09/11/2017 7:56pm 09/11/2017 8: 47pm Urine Bilirubin NEGATIVE NEGATIVE 09/11/2017 7:56pm 09/11/2017 8: 47pm Urine Blood 4+ H NEGATIVE 09/11/2017 7:56pm 09/11/2017 8:47pm Urine WBC 6-10 /HPF H 0-5 09/11/2017 7:56pm 09/11/2017 9:35pm Urine RBC >50 /HPF H 0-5 09/11/2017 7:56pm 09/11/2017 9:35pm Urine Bacteria FEW /HPF NONE 09/11/2017 7:56pm 09/11/2017 9:35pm Urine Epithelial Cells RARE /LPF NONE 09/11/2017 7:56pm 09/11/2017 9: 35pm Sodium Level 136 mmol/L 136-145 09/13/2017 6:29am 09/13/2017 7:25am Potassium Level 3.7 mmol/L 3.5-5.1 09/13/2017 6:29am 09/13/2017 7:25am Chloride Level 96 mmol/L L 98-107 09/13/2017 6:29am 09/13/2017 7:25am Influenza Virus Types A,B Antigen NEGATIVE NEGATIVE 09/11/2017 8:00pm 09/11/2017 8:37pm Carbon Dioxide Level 27 mmol/L -09/13/2017 6:29am 09/13/2017 7: 25am Anion Gap 16.7 mmol/L H 8-16 09/13/2017 6:29am 09/13/2017 7:25am Blood Urea Nitrogen 56 mg/dL H 7-09/13/2017 6:29am 09/13/2017 7:25am Creatinine 3.43 mg/dL H 0.57-1.11 09/13/2017 6:29am 09/13/2017 7:25am BUN/Creatinine Ratio 16 6-25 09/13/2017 6:29am 09/13/2017 7:25am Estimat Glomerular Filtration Rate 13 ML/MIN L 60- 09/13/2017 6:29am 12/2017 7:25am Ranges were taken from the National Kidney Disease Education Program and the National Kid[employer] Foundation literature. Reference ranges: 60 or greater: Normal 16-59 (for 3 consecutive months): Chronic kidney disease 15 or less: Kidney failure Glucose Level 154 mg/dL H 74-118 09/13/2017 6:29am 09/13/2017 7:25am Calcium Level 8.8 mg/dL 8.4-10.2 09/13/2017 6:29am 09/13/2017 7:25am Bedside Glucose 259 mg/dL H 70-120 09/13/2017 3:43pm 09/13/2017 4:30pm Meter ID: [id number] Lactic Acid Level 13.2 MG/DL 4.5-19.8 09/11/2017 7:44pm 09/11/2017 8: 16pm Total Bilirubin 0.4 mg/dL 0.2-1.2 09/12/2017 5:45am 09/12/2017 6:49am Aspartate Amino Transf (AST/SGOT) 27 IU/L 5-34 09/12/2017 5:45am 2017 6:49am Alanine Aminotransferase (ALT/SGPT) 30 IU/L 0-55 09/12/2017 5:45am 11/2017 6:49am Total Protein 6.0 g/dL L 6.5-8.1 09/12/2017 5:45am 09/12/2017 6:49am Albumin 2.6 g/dL L 3.5-5.0 09/12/2017 5:45am 09/12/2017 6:49am Globulin 3.4 g/dL 2.3-3.5 09/12/2017 5:45am 09/12/2017 6:49am Albumin/Globulin Ratio 0.8 0.8-2.0 09/12/2017 5:45am 09/12/2017 6: 49am Alkaline Phosphatase 82 IU/L 40-150 09/12/2017 5:45am 09/12/2017 6: 49am Microbiology Results Procedure Source Organism/Result Collection Date/Time Result Date/Time Result Status Urine Culture Urine,Clean Catch HERNESTO GLABRATA 06/22/2017 7:10pm 2017 6:19am Final Blood Culture Blood NO GROWTH AFTER 24 HOURS 09/11/2017 7:44pm 09/13/2017 2:54am Preliminary Procedures Procedure Status Date Provider(s) PARTIAL MASTECTOMY Completed 08/09/17 PARISH OLIVER MD BIOPSY/REMOVAL LYMPH NODES Completed 08/09/17 PARISH OLIVER MD Computed tomography of brain without radiopaque contrast Active 05/26/17 NOHEMI CHRISTIAN MD X-ray of chest, single view Active 05/26/[address] of abdomen and pelvis without contrast Active 06/22/17 OCTAVIO GODWIN NP Computed tomography of chest without contrast Active 09/12/17 ISAIAS RIVERO MD Encounters Encounter Location Arrival/Admit Date Discharge/Depart Date Attending Provider Discharged Inpatient [facility] [place] 09/11/17 10:08pm 5:55pm ISAIAS RIVERO MD Discharged Inpatient [facility] [place] 08/18/17 2:19pm 08/21/17 1:05pm NAZ PEREZ MD Registered Surgical Day Care [facility] 08/09/17 6:55am PARISH OLIVER MD Departed Emergency Room [facility] 06/22/17 5:43pm 9:18pm VIRGINIA BARAKAT MD Discharged Inpatient [facility] 06/12/17 11:50pm 11:05am NAZ PEREZ MD Departed Emergency Room [facility] 05/26/17 12:02pm 05/26 7:34pm NOHEMI CHRISTIAN MD
--- OUTSIDE RECORDS SUMMARY | 2017-10-06 00:46 | XMS REPORT | Clinical Summary ---
Author Author [facility] Address Unknown Phone Unavailable Care Team Providers Care Lithographic Camera Operator Name Role Phone PCP Unavailable Allergies Not on File Current Medications Not on file Active Problems Not on file Social History Tobacco Use Types Packs/Day Years Used Date Never Assessed Sex Assigned at Date Recorded Not on file Last Filed Vital Signs Not on file Plan of Treatment Not on file Results Not on fileafter 10/05/2016
[2017-10-06 02:00] LABS: INR 1.14; PROTHROMBIN TIME 13.7 seconds (11.9-14.5)
[2017-10-06 02:01] LABS: PARTIAL THROMBOPLASTIN TIME 26.7 seconds (23.8-35.5)
[2017-10-06 02:08] LABS: ALBUMIN/GLOBULIN RATIO 0.9 (0.8-2.0); ANION GAP 19.1 mmol/L (8-16); CALCIUM 9.4 mg/dL (8.4-10.2); CREATININE, SERUM 3.3 mg/dL (0.57-1.11); MAGNESIUM 1.8 MG/DL (1.3-2.1); POTASSIUM 4.1 mmol/L (3.5-5.1)
[2017-10-06 02:14] LABS: BASOPHILS % 0.4 % (0.0-1.0); EOSINOPHILS # (AUTO) 0.3 (0.0-0.4); EOSINOPHILS % 3.4 % (0.0-6.0); HEMATOCRIT 33.2 % (34.2-44.1); HEMOGLOBIN 10.4 g/dL (12.0-16.0); LYMPHOCYTES # (AUTO) 1.3 (1.0-3.2); LYMPHOCYTES % 15.4 % (18.0-39.1); MEAN CORPUSCULAR HEMOGLOBIN 28.9 pg (28-32); MEAN CORPUSCULAR HGB CONC 31.3 g/dL (31-35); MEAN CORPUSCULAR VOLUME 92.2 fL (81-99); MONOCYTES # (AUTO) 0.8 (0.2-0.8); MONOCYTES % 9.2 % (4.4-11.3); NEUTROPHILS # (AUTO) 5.8 (2.1-6.9); NEUTROPHILS % 70.3 % (38.7-80.0); PLATELET COUNT 272 x10e3/uL (140-360); RED CELL DISTRIBUTION WIDTH 14.7 % (11.7-14.4)
[2017-10-06 02:15] LABS: CREATINE KINASE MB 0.6 ng/mL (0-5.0)
--- NOTE | 2017-10-06 02:40 | Diagnostic Imaging Report ---
CHEST SINGLE (PORTABLE), 10/06/2017 12:56 AM Technique: CHEST SINGLE (PORTABLE) Comparison: 09/11/2017 Clinical history: Chest pain Findings: See Impression Impression: 1. Stable mildly enlarged cardiomediastinal silhouette. 2. Minimal bibasilar atelectasis with or without underlying small effusions. 3. Note is made of prior midthoracic vertebroplasty with extruding cement. Healed fractures. Signed by: Dr Mercedes Stark MD on 10/06/2017 2:37 AM
[2017-10-06] MEDS ORDERED: MORPHINE SULFATE 2 MG/ML SYR IV STA ×2 (02:51→04:24)
[2017-10-06] MEDS ORDERED: ONDANSETRON HCL 4 MG ORAL DISINTEGRATING TAB PO ONE (03:00)
[2017-10-06] MEDS ORDERED: NITROGLYCERIN 2% OINT 1 GM PKT TOP STA (03:02)
[2017-10-06] MEDS ORDERED: ONDANSETRON HCL 4 MG ORAL DISINTEGRATING TAB PO PRN (04:00)
[2017-10-06] MEDS ORDERED: FAMOTIDINE 20 MG/2 ML VIAL IV SCH (04:00)
[2017-10-06] MEDS ORDERED: MORPHINE SULFATE 2 MG/ML SYR IV PRN (04:00)
[2017-10-06] MEDS ORDERED: DEXTROSE 50% SYRINGE 50 ML IV PRN (04:00)
--- OUTSIDE RECORDS SUMMARY | 2017-10-06 04:04 | XMS REPORT | Clinical Summary ---
Author Author [facility] Address Unknown Phone Unavailable Care Team Providers Care Contract Negotiation Manager Name Role Phone PCP Unavailable Allergies [...]
[2017-10-06] MEDS ORDERED: NITROGLYCERIN 2% OINT 1 GM PKT TOP SCH (06:00)
[2017-10-06] MEDS ORDERED: ALBUTEROL/IPRATROPIUM 3 ML NEB NEB PRN ×2 (06:30→08:45)
[2017-10-06] MEDS ORDERED: METHYLPREDNISOLONE SOD SUCC 40 MG/ML VIAL IV SCH (06:45)
[2017-10-06] MEDS ORDERED: CEFTRIAXONE SOD 1 GM VIAL IV SCH (06:45)
[2017-10-06] MEDS: BUMETANIDE 1 MG TAB PO SCH ×2 (08:15→16:31)
[2017-10-06] MEDS: CEFTRIAXONE SOD 1 GM VIAL IV SCH (08:15)
[2017-10-06] MEDS: ASPIRIN 81 MG CHEW TAB PO SCH (08:15)
[2017-10-06] MEDS: OMEGA 3 POLYUNSAT FATTY ACIDS 1000 MG SOFTGEL PO SCH ×2 (08:16→16:32)
[2017-10-06] MEDS: VITAMIN E 400 UNIT CAP PO SCH (08:16)
[2017-10-06] MEDS: THIAMINE HCL 100 MG TAB PO SCH (08:16)
[2017-10-06] MEDS: ALLOPURINOL 300 MG TAB PO SCH (08:16)
[2017-10-06] MEDS: CYANOCOBALAMIN 1,000 MCG TAB PO SCH (08:16)
[2017-10-06] MEDS: SODIUM BICARBONATE 650 MG TAB PO SCH ×2 (08:16→16:32)
[2017-10-06] MEDS: PROPRANOLOL HCL 10 MG TAB PO SCH ×2 (08:16→16:32)
[2017-10-06] MEDS: INSULIN REGULAR, HUMAN 100 UNIT/1 ML 3ML VIAL SQ SCH ×4 (08:17→20:53)
[2017-10-06] MEDS ORDERED: BENZONATATE 100 MG CAP PO PRN (08:45)
[2017-10-06] MEDS ORDERED: Garlic 1,000 MG PO SCH (09:00)
[2017-10-06] MEDS ORDERED: CINNAMON BARK 1000 MG PO SCH (09:00)
[2017-10-06] MEDS ORDERED: ASPIRIN 81 MG ENTERIC COATED PO SCH (09:00)
[2017-10-06] MEDS ORDERED: INSULIN DETEMIR 100 UNIT/ML PEN SQ SCH (09:00)
--- NOTE | 2017-10-06 09:26 | History and Physical ---
PCP: Dr. Anthony Richter CHIEF COMPLAINT: Atypical chest pain associated with wheezing. HISTORY OF PRESENT ILLNESS: Patient is a 67-year-old female who came in with chest pain and increasing cough. The patient has wheezing. She required oxygen. She did receive nebulizer treatment. The chest pain is associated with increasing cough. The patient is doing better with nebulizer treatment. She is on oxygen now. She still remains with expiratory wheezing. PAST MEDICAL HISTORY 1. Hypertension. 2. Diabetes, type 2. 3. Dyslipidemia. 4. Chronic kidney disease, stage 4. 5. Osteoarthritis. 6. History of breast cancer. 7. History of right axillary area hematoma. 8. Morbid obesity. 9. History of brain mass and tumor post removal. 10. Osteoarthritis. 11. Right breast cancer. 12. History of recurrent bronchitis. PAST SURGICAL HISTORY 1. Right breast lumpectomy. 2. History of craniotomy. 3. Knee surgery. 4. Tonsillectomy. 5. Kyphoplasty. SOCIAL HISTORY: Patient is an ex-smoker but quit many, many years ago, over 20 years. She does not smoke now. No recreational drug use. No alcohol consumption. ALLERGIES: NO KNOWN ALLERGIES. HOME MEDICATIONS: The patient is on allopurinol, aspirin, Bumex, B12, insulin, Levemir, lovastatin, omega-3 fatty acid, propranolol, spironolactone, thiamine, tramadol, vitamin E. REVIEW OF SYSTEMS: As mentioned. PHYSICAL EXAMINATION VITAL SIGNS: T-max. Blood pressure 155/77. Pulse rate 86. Respirations 18 to 22. GENERAL: The patient is awake. She is not in distress. HEENT: Normocephalic, atraumatic. Sclerae are anicteric. NECK: Supple grossly. PULMONARY: Bilateral expiratory wheezing. There are coarses at the bases. CARDIOVASCULAR: S1, S2, regular rate and rhythm. ABDOMEN: She is morbidly obese. EXTREMITIES: No cyanosis or edema. NEUROLOGIC: No focal deficit. LABORATORY: WBC , hemoglobin 10.4, hematocrit 33.2, platelets 372. Chemistries: Sodium is 141, potassium 4.1, chloride 98, bicarb 28, BUN 44, creatinine 3.3, glucose 153. BNP is 101. Coagulation is normal. Chest x-ray is with enlarged cardiomediastinal silhouette. There is minimal bibasilar atelectasis without . IMPRESSION 1. Upper respiratory infection, wheezing, coarses and hypoxia most likely secondary to acute bronchitis versus pneumonia. 2. Multiple chronic baseline problems. PLAN: CT of chest without IV contrast. Antibiotics. Nebulizer treatment. Home medications will be resumed. Will monitor the patient closely. Chest pain most likely secondary to infection. Job#: [id number]
[2017-10-06] MEDS: SPIRONOLACTONE 25 MG TAB PO SCH (09:30)
[2017-10-06] MEDS ORDERED: AZITHROMYCIN 250 MG TAB PO ONE (09:30)
[2017-10-06] MEDS: BENZONATATE 100 MG CAP PO SCH ×3 (09:30→20:53)
[2017-10-06] MEDS ORDERED: INSULIN DETEMIR 100 UNIT/ML PEN SQ ONE (09:30)
[2017-10-06 09:35] LABS: CREATINE KINASE MB 0.5 ng/mL (0-5.0)
[2017-10-06 10:47] LABS: BILIRUBIN,URINE NEGATIVE (NEGATIVE); CLARITY,URINE CLOUDY (CLEAR); COLOR,URINE YELLOW (YELLOW); KETONES,URINE NEGATIVE (NEGATIVE); LEUKOCYTE ESTERASE ,URINE NEGATIVE (NEGATIVE); NITRITE,URINE NEGATIVE (NEGATIVE); PROTEIN,URINE DIPSTICK 3+ (NEGATIVE); URINE UROBILINOGEN 0.2 mg/dL (0.2 - 1)
[2017-10-06 10:58] LABS: AMORPHOUS SEDIMENT,URINE RARE (FEW); EPITHELIAL CELLS,URINE MODERATE /LPF
[2017-10-06] MEDS: METHYLPREDNISOLONE SOD SUCC 40 MG/ML VIAL IV SCH ×2 (12:08→17:16)
--- NOTE | 2017-10-06 12:34 | Diagnostic Imaging Report ---
PROCEDURE:CT CHEST WITHOUT CONTRAST COMPARISON:[facility], CT, CT CHEST WO, 09/12/2017, 13:00. INDICATIONS:Shortness of breath TECHNIQUE: Routine protocol CT chest. No intravenous or enteric contrast. Multiplanar reformatted images. DLP: 456.87 FINDINGS: Lungs: Dependent bibasilar airspace opacity. Airways: Normal Pleura: Small effusions bilaterally (right greater than left). Lymph nodes: Calcified left hilar subcentimeter nodes. Pulmonary arteries: Normal caliber. Pulmonary diameter 3.3 cm. Thoracic aorta and great vessels: Normal caliber. Mild tortuosity of the descending thoracic aorta. Trace aortic arch atherosclerosis. Heart and pericardium: Normal heart size. Interval development of pericardial thickening/trace effusion. Mild coronary artery calcification. Subdiaphragmatic organs: Grossly unremarkable. Skeleton: Subacute rib fractures bilaterally. Right shoulder osteoarthritis. Compression deformity of T7 with sequela of vertebroplasty. Stable T8 vertebral body superior endplate compression deformity. Soft tissues: 6.8 x 3.5 x 3.5 cm right axillary/chest wall fluid collection, decreased from 8.6 x 4.2 x 4 cm on comparison study. Mildly heterogeneous thyroid. Otherwise, normal. CONCLUSION: 1. Interval development of small pleural effusions and trace pericardial effusion/pericardial thickening relative to September 12, 2017. Consider pericarditis. Associated bibasilar airspace opacity consistent with atelectasis with or without associated pneumonia. 2. The right axillary/chest wall fluid collection has decreased in size as described. Dictated by: Rober Corrales M.D. on 10/06/2017 at 12:37 Electronically approved by: Rober Corrales M.D. on 10/06/2017 at 12:37
[2017-10-06] MEDS: ALBUTEROL/IPRATROPIUM 3 ML NEB NEB SCH ×2 (13:00→19:12)
[2017-10-06] MEDS ORDERED: ACETAMINOPHEN 325 MG TAB PO PRN (13:30)
[2017-10-06] MEDS: ENOXAPARIN SOD INJ 40 MG/0.4 ML SYR SC SCH (16:32)
[2017-10-06 19:30] LABS: CREATINE KINASE MB 0.5 ng/mL (0-5.0)
[2017-10-06] MEDS: SIMVASTATIN 40 MG TAB PO SCH (20:53)
[2017-10-06] MEDS: TRAMADOL HCL 50 MG TAB PO SCH (20:53)
[2017-10-06] MEDS ORDERED: SPIRONOLACTONE 25 MG TAB PO SCH (21:00)
[2017-10-07] VITALS (8 sets, daily range): BP systolic 122–151; BP diastolic 57–68
[2017-10-07] MEDS: METHYLPREDNISOLONE SOD SUCC 40 MG/ML VIAL IV SCH ×4 (00:52→18:10)
[2017-10-07] MEDS: ALBUTEROL/IPRATROPIUM 3 ML NEB NEB SCH ×4 (01:50→20:00)
[2017-10-07 07:07] LABS: BASOPHILS % 0.1 % (0.0-1.0); HEMATOCRIT 28.8 % (34.2-44.1); HEMOGLOBIN 9.2 g/dL (12.0-16.0); LYMPHOCYTES # (AUTO) 0.9 (1.0-3.2); MEAN CORPUSCULAR HEMOGLOBIN 29.4 pg (28-32); MEAN CORPUSCULAR HGB CONC 31.9 g/dL (31-35); MONOCYTES # (AUTO) 0.8 (0.2-0.8); MONOCYTES % 5.2 % (4.4-11.3); NEUTROPHILS # (AUTO) 12.6 (2.1-6.9); NEUTROPHILS % 88.1 % (38.7-80.0); PLATELET COUNT 211 x10e3/uL (140-360); RED BLOOD COUNT 3.13 x10e6/uL (3.6-5.1); RED CELL DISTRIBUTION WIDTH 14.8 % (11.7-14.4)
[2017-10-07 07:31] LABS: ALBUMIN 2.6 g/dL (3.5-5.0); ALBUMIN/GLOBULIN RATIO 0.8 (0.8-2.0); ANION GAP 15.3 mmol/L (8-16); CALCIUM 9.3 mg/dL (8.4-10.2); CREATININE, SERUM 4.47 mg/dL (0.57-1.11); POTASSIUM 4.3 mmol/L (3.5-5.1)
[2017-10-07 08:19] LABS: CREATINE KINASE 37 IU/L (29-168)
[2017-10-07] MEDS: INSULIN DETEMIR 100 UNIT/ML PEN SQ SCH (08:25)
[2017-10-07] MEDS: INSULIN REGULAR, HUMAN 100 UNIT/1 ML 3ML VIAL SQ SCH ×4 (08:25→20:44)
[2017-10-07] MEDS: THIAMINE HCL 100 MG TAB PO SCH (08:26)
[2017-10-07] MEDS: OMEGA 3 POLYUNSAT FATTY ACIDS 1000 MG SOFTGEL PO SCH ×2 (08:26→16:58)
[2017-10-07] MEDS: ALLOPURINOL 300 MG TAB PO SCH (08:26)
[2017-10-07] MEDS: CEFTRIAXONE SOD 1 GM VIAL IV SCH (08:26)
[2017-10-07] MEDS: BUMETANIDE 1 MG TAB PO SCH ×2 (08:26→16:57)
[2017-10-07] MEDS: ASPIRIN 81 MG CHEW TAB PO SCH (08:26)
[2017-10-07] MEDS: CYANOCOBALAMIN 1,000 MCG TAB PO SCH (08:26)
[2017-10-07] MEDS: SODIUM BICARBONATE 650 MG TAB PO SCH ×2 (08:27→16:58)
[2017-10-07] MEDS: VITAMIN E 400 UNIT CAP PO SCH (08:27)
[2017-10-07] MEDS: SPIRONOLACTONE 25 MG TAB PO SCH (08:27)
[2017-10-07] MEDS: BENZONATATE 100 MG CAP PO SCH ×3 (08:27→20:45)
[2017-10-07] MEDS: PROPRANOLOL HCL 10 MG TAB PO SCH ×2 (08:27→16:58)
[2017-10-07] MEDS: AZITHROMYCIN 250 MG TAB PO SCH (08:27)
--- NOTE | 2017-10-07 09:14 | Consultation ---
DATE OF CONSULTATION: October 06, 2017 CARDIOLOGY CONSULTATION REASON FOR CONSULTATION: Possible pericarditis. HPI: This is a pleasant 67-year-old female that is morbidly obese that presented with chest pain. According to the patient and the friend, she stated having chest pain on a scale of 3/10 on both sides of the chest that radiated to the back. She stated that the chest pain woke her up from sleep, and she decided to come into the emergency room for evaluation. She has a history of multiple medical problems. Uses home CPAP. She is morbidly obese. Was recently diagnosed with congestive heart failure. She had a chest x-ray that was done that showed minimal atelectasis. CT of the chest was done that showed interval development of small pleural effusion and trace pericardial effusion. Cardiology was consulted to rule out pericarditis. She denies any dizziness, any palpitations, any headache, or diaphoresis. Troponin was negative. EKG showed normal sinus rhythm with no S/T abnormalities. BNP 101. PAST MEDICAL HISTORY: Obesity, diabetes, hyperlipidemia, tremors, sleep apnea, CKD, brain tumor, osteoarthritis, right breast cancer, bronchitis, right axilla knee hematoma. PAST SURGICAL HISTORY: Knee surgery, tonsillectomy, kyphoplasty, craniotomy, right breast lumpectomy. FAMILY HISTORY: Positive for CAD. SOCIAL HISTORY: No smoking. No drinking. She lives at home with a roommate. She uses a CPAP machine at night. MEDICATIONS: See med list. ALLERGIES: SHE IS NOT ALLERGIC TO ANY MEDICATIONS. REVIEW OF SYSTEMS: Negative except those mentioned above. PHYSICAL EXAMINATION VITAL SIGNS: Temperature 98, heart rate 77, blood pressure 131/60, respirations 20, oxygen saturation 95% on 2 L nasal cannula. GENERAL: She is morbidly obese, awake, alert, and oriented times 3. HEENT: Mucous membrane moist. NECK: Supple. LUNGS: Bilateral with decreased breath sounds and wheezing. CARDIOVASCULAR: S1 and S2 present. ABDOMEN: Soft. NEUROLOGICAL: Intact. EXTREMITIES: With 3+ edema. LABS: Sodium 133, potassium 4.3, chloride 93, CO2 29, BUN 55, creatinine 4.47, glucose 222. White blood cells 14.3, hemoglobin 9.2, hematocrit 28.8, and platelets 211,000. PT 13.7, PTT 26.7 and INR 1.14. IMPRESSION 1. Possible pericarditis. 2. Bronchitis versus pneumonia. 3. Obesity. 4. Diabetes. 5. History of diastolic congestive heart failure. 6. Chronic kidney disease. 7. Hypertension. ASSESSMENT AND PLAN: Will go ahead and get another echocardiogram to reassess the LV and the valve function. Will continue her diuretic. Continue antibiotics. Oxygen and home medications. Further cardiac workup pending clinical course. Thank you for this consultation. DICTATED BY BERNARDINO BANEGAS NP Job#: [id number] RI
[2017-10-07] MEDS: ENOXAPARIN SOD INJ 40 MG/0.4 ML SYR SC SCH (16:58)
--- NOTE | 2017-10-07 20:10 | Consultation ---
DATE OF CONSULTATION: October 07, 2017 RENAL CONSULTATION HISTORY OF PRESENT ILLNESS: This is a 67-year-old white female who has underlying history of chronic kidney disease stage 4. Presented with shortness of breath and apparent chest pain. Workup includes CT scan without contrast. Shows interval development of small pleural effusion, some pericardial thickening and right axillary chest wall fluid collection which has decreased in size. She is awake, alert, completely asymptomatic. In no apparent distress. REVIEW OF SYSTEMS: Negative for nausea, vomiting, chest pain, shortness of breath. ALLERGIES: NO APPARENT DRUG ALLERGIES. SOCIAL HISTORY: Patient does not smoke or drink. PAST MEDICAL HISTORY: Significant for history of asthma, gout, chronic kidney disease stage 4, type 2 diabetes with end-organ damage. CURRENT MEDICATIONS: Include albuterol-Atrovent nebulizer, allopurinol 150 mg daily, aspirin 81 mg daily, azithromycin 250 mg p.o. daily, Tessalon Perles 100 mg p.o. q.6, ceftriaxone 1 gram q.24, Bumex 2 mg tablet p.o. b.i.d., methylprednisolone 20 mg IV q.6, [place]-3 fatty acids. She is on propranolol 20 mg p.o. b.i.d., regular insulin, sodium bicarbonate 1300 mg p.o. b.i.d., Aldactone 100 mg at bedtime, vitamin E as needed. FAMILY HISTORY: Significant for hypertension. PHYSICAL EXAMINATION: GENERAL: Awake, alert, lying supine. No apparent distress. VITALS: Blood pressure 143/62, pulse rate 82, afebrile. HEAD AND NECK: Cornea clear. Oral mucosa moist. Neck veins not appreciated. LUNGS: Clear as per my exam. Somewhat decreased air entry, left lower third, but no rhonchi and no rales. HEART: S1 and S2 audible. No rubs or gallop. ABDOMEN: Soft, nontender. LOWER EXTREMITY EXAMINATION: Shows about 1 to 2+ ankle edema. LABS: White count 14.3. Hemoglobin 9.2. Yesterday white count was normal. Sodium 133, potassium 4.3 with a BUN 55, creatinine 4.47. IMPRESSION/PLAN: [id number] kidney failure. Underlying chronic kidney disease 4. Has evidence of hyponatremia. I will discontinue Aldactone. Continue with Bumex. Will insert Thomas for 24 hours to get accurate urine collection. Will obtain 24-hour urine for creatinine clearance and proteins. Discussed with Dr. Sherman, discussed with Dr. Simons. Job#: [id number] EV
[2017-10-07] MEDS: SIMVASTATIN 40 MG TAB PO SCH (20:45)
[2017-10-07] MEDS: TRAMADOL HCL 50 MG TAB PO SCH (20:57)
[2017-10-08] VITALS: BP 143/75
[2017-10-08] MEDS: METHYLPREDNISOLONE SOD SUCC 40 MG/ML VIAL IV SCH ×3 (00:10→12:10)
[2017-10-08] MEDS: ALBUTEROL/IPRATROPIUM 3 ML NEB NEB SCH ×2 (00:15→08:05)
[2017-10-08 07:51] VITALS: BP 135/63
[2017-10-08 07:53] LABS: ALBUMIN 2.2 g/dL (3.5-5.0); ALBUMIN/GLOBULIN RATIO 0.6 (0.8-2.0); ANION GAP 17.5 mmol/L (8-16); CALCIUM 8.5 mg/dL (8.4-10.2); CREATININE, SERUM 4.68 mg/dL (0.57-1.11); POTASSIUM 4.5 mmol/L (3.5-5.1)
[2017-10-08 08:10] VITALS: BP 135/63
[2017-10-08] MEDS: INSULIN REGULAR, HUMAN 100 UNIT/1 ML 3ML VIAL SQ SCH ×2 (08:15→12:10)
[2017-10-08] MEDS: OMEGA 3 POLYUNSAT FATTY ACIDS 1000 MG SOFTGEL PO SCH (08:16)
[2017-10-08] MEDS: ASPIRIN 81 MG CHEW TAB PO SCH (08:16)
[2017-10-08] MEDS: CEFTRIAXONE SOD 1 GM VIAL IV SCH (08:16)
[2017-10-08] MEDS: ALLOPURINOL 300 MG TAB PO SCH (08:16)
[2017-10-08] MEDS: CYANOCOBALAMIN 1,000 MCG TAB PO SCH (08:16)
[2017-10-08] MEDS: THIAMINE HCL 100 MG TAB PO SCH (08:16)
[2017-10-08] MEDS: INSULIN DETEMIR 100 UNIT/ML PEN SQ SCH (08:16)
[2017-10-08] MEDS: BUMETANIDE 1 MG TAB PO SCH (08:16)
[2017-10-08] MEDS: SODIUM BICARBONATE 650 MG TAB PO SCH (08:17)
[2017-10-08] MEDS: AZITHROMYCIN 250 MG TAB PO SCH (08:17)
[2017-10-08] MEDS: BENZONATATE 100 MG CAP PO SCH (08:17)
[2017-10-08] MEDS: VITAMIN E 400 UNIT CAP PO SCH (08:17)
[2017-10-08] MEDS: PROPRANOLOL HCL 10 MG TAB PO SCH (08:17)
[2017-10-08 11:58] VITALS: BP 147/66
[2017-10-08] MEDS ORDERED: AUGMENTIN 875-1 EACH PO (13:39)
[2017-10-08] MEDS ORDERED: ZOFRAN ODT4 MG SL (13:40)
[2017-10-08] MEDS ORDERED: TESSALON PERLE100 MG PO (13:41)
[2017-10-08] MEDS ORDERED: MUCINEX600 MG PO (13:42)
[2017-10-08 14:34] LABS: CREATININE,URINE RANDOM 148.44 mg/dL (47-110); TOTAL PROTEIN 24HR, URINE 774.2 mg/24hr (50-100); TOTAL PROTEIN, URINE 110.6 mg/dL (1-14)
[2017-10-08] MEDS ORDERED: SPIRONOLACTONE 25 MG TAB PO SCH ×2 (21:00)
--- NOTE | 2017-10-09 13:44 | Discharge Summary ---
FINAL DIAGNOSES 1. Acute bronchitis associated with bibasilar community-acquired pneumonia. 2. Baseline chronic kidney disease, stage 4. 3. Baseline diastolic dysfunction congestive heart failure, stable. No exacerbation. SUMMARY: This 67-year-old came in with basically wheezing and coughing. Patient developed chest pain with the wheeze and coughing. There was a small pleural effusion. Echocardiogram was otherwise unremarkable. The was no sign of significant pericardial effusion. Ejection fraction of 55% on echocardiogram. The patient's CT scan showed resolved right axillary chest wall fluid collection consistent with most likely hematoma. There is basilar air-space opacity consistent with atelectasis or possible early pneumonia. Patient was placed on antibiotics. She received IV steroids as well. She is doing much better now. She is stable. The patient will go home today. Follow up as an outpatient. She will follow up with Dr. Anthony Richter, her PCP, next week. She will continue with her home medication. Discharge medications are Augmentin, Mucinex and Tessalon Perles. The patient is otherwise stable and discharged home after 24-hour urine collection. Job#: [id number]
== END 2017-10-08 15:27 | disposition home or self-care (01) ==
LOC: ER 00:43 → ERHOLD 04:01 → MED/SURG 05:09
PROVIDERS: ADMIT Internal Medicine; ATTEND Internal Medicine
DX: J18.9 Pneumonia, unspecified organism (principal); J20.9 Acute bronchitis, unspecified; R07.2 Precordial pain; E11.22 Type 2 diabetes mellitus with diabetic chronic kidney disease; Z85.3 Personal history of malignant neoplasm of breast; N18.4 Chronic kidney disease, stage 4 (severe); E78.5 Hyperlipidemia, unspecified; Z87.891 Personal history of nicotine dependence; E66.01 Morbid (severe) obesity due to excess calories; I13.0 Hypertensive heart and chronic kidney disease with heart failure and stage 1 through stage 4 chronic kidney disease, or unspecified chronic kidney disease; I50.30 Unspecified diastolic (congestive) heart failure; N17.9 Acute kidney failure, unspecified; E87.1 Hypo-osmolality and hyponatremia; Z68.41 Body mass index [BMI] 40.0-44.9, adult; D64.9 Anemia, unspecified; J90 Pleural effusion, not elsewhere classified
CPT/HCPCS: 36415 ×3; 71045; 71250; 80053 ×3; 80061; 81001; 81050; 82550 ×2; 82553 ×2; 82575; 82948 ×3; 83735; 83880 ×2; 84156; 84484 ×2; 85025 ×2; 85610; 85730; 93005; 93306; 94640 ×5; 97116 ×2; 97139 ×2; 97161; 97530; 99284; G0378 ×3; J0696 ×3; J1650 ×2; J2270; J2920 ×3; J3411 ×3

== ENCOUNTER → 2018-02-16 | Day surgery (SDC) | payer OTHER ==
[~2018-02-16] MED LIST changes: +AUGMENTIN 875-1 EACH PO; +BACITRACIN 50,000 UNIT VIAL ONE; +BUPIVACAINE HCL 0.5% INJ 30 ML VIAL INJ ONE; +CEFAZOLIN SOD 2 GM/D5W 50ML 50 ML IV ONE; +DOXYCYCLINE HY100 MG PO; +FENTANYL CITRATE/PF 100MCG/2 ML INJ ONE; +KEPPRA250 MG; +KEPRA; +LIDOCAINE HCL 2% LOCAL INJ 5 ML SDV VIAL INJ ONE; +MIDAZOLAM HCL 2 MG/2 ML VIAL ONE; +MUCINEX600 MG PO; +NEOSTIGMINE 1 MG/ML 10ML VIAL ONE; +PROPOFOL IV EMULSION 10 MG/ML 20 ML VIAL ONE; +TESSALON PERLE100 MG PO; +ZOFRAN ODT4 MG SL
[2018-02-16 09:17] LABS: BASOPHILS % 0.4 % (0.0-1.0); EOSINOPHILS # (AUTO) 0.3 (0.0-0.4); EOSINOPHILS % 3.2 % (0.0-6.0); HEMATOCRIT 26.3 % (34.2-44.1); HEMOGLOBIN 8.4 g/dL (12.0-16.0); LYMPHOCYTES # (AUTO) 1.1 (1.0-3.2); LYMPHOCYTES % 13.7 % (18.0-39.1); MEAN CORPUSCULAR HEMOGLOBIN 29.7 pg (28-32); MEAN CORPUSCULAR HGB CONC 31.9 g/dL (31-35); MEAN CORPUSCULAR VOLUME 92.9 fL (81-99); MONOCYTES # (AUTO) 0.7 (0.2-0.8); MONOCYTES % 8.4 % (4.4-11.3); NEUTROPHILS # (AUTO) 5.7 (2.1-6.9); PLATELET COUNT 288 x10e3/uL (140-360); RED BLOOD COUNT 2.83 x10e6/uL (3.6-5.1); RED CELL DISTRIBUTION WIDTH 14.7 % (11.7-14.4)
[2018-02-16 09:34] LABS: ANION GAP 18.3 mmol/L (8-16); CALCIUM 9.2 mg/dL (8.4-10.2); CREATININE, SERUM 3.19 mg/dL (0.57-1.11); POTASSIUM 3.3 mmol/L (3.5-5.1)
[2018-02-16 13:00] VITALS: BP 130/70
--- NOTE | 2018-02-16 13:28 | Operative Report ---
DATE OF PROCEDURE: February 16, 2018 PREOPERATIVE DIAGNOSES 1. Painful hardware left foot. 2. Ankle fracture. 3. Cellulitis. POSTOPERATIVE DIAGNOSES 1. Painful hardware left foot. 2. Ankle fracture. 3. Cellulitis. OPERATIONS PERFORMED 1. Removal of hardware, external fixator, left foot. 2. Irrigation of wounds with deep cultures and sensitivities. 3. Application of posterior splint. PATHOLOGY: Cultures and sensitivities. ANESTHESIA: A MAC anesthetic with a local block consisting of 10 mL of 0.5 Marcaine plain. COMPLICATIONS: None. CONDITION: Stable. DETAILS OF PROCEDURE: Under mild sedation, the patient was brought to the operating room and placed on the operating table in the supine position. Following IV sedation, anesthesia was obtained with a general anesthetic. At this point, the left foot was scrubbed, prepped and draped in the usual aseptic manner. It was then lowered to the table. At this point, all the pins of the external fixator were then cut. They were then removed. The rings were also removed. The half pins were also removed. After full removal was confirmed clinically and with the use of intraoperative fluoroscopy, the area of the abscess and the superficial cellulitis was then irrigated with a copious amount of normal sterile saline solution with a pressure security system administrator. Cultures and sensitivities were taken. The area was then partially closed with simple interrupted suture with 4-0 nylon, the 2 incisions at the dorsal aspect of the anterior tibia. Then a clean dressing was applied consisting of Xeroform, Betadine-soaked 4 x 4's, Kerlix, Webril. A posterior splint was applied and was secured utilizing an Arnel bandage. Patient tolerated the procedure and anesthesia well without complications and was transported to the recovery room with vital signs stable and vascular status intact to both feet. The patient will be discharged home when she meets criteria. She was given instructions to be partial weightbearing to the left foot with the posterior splint, a postop shoe and the use of a walker, to elevate the foot while at rest, to follow up with me in the office on Tuesday, to continue to take her oral antibiotic and to call the office if any questions, concerns or any problems arise. Job#: [id number] EV
--- OUTSIDE RECORDS SUMMARY | 2018-02-21 12:56 | XMS REPORT | Continuity of Care Document ---
Author Author [facility] Interface Address Unknown Phone Unavailable Problems Problem Status Onset Date Classification Date Reported Comments Source Other chronic pain 07/02/2017 10/01/2017 [facility] Chronic back pain 06/25/2017 10/01/2017 [facility] BACK PAIN Active 06/25/2017 [facility] Benign neoplasm of cerebral meninges 06/02/2017 09/02/2017 [facility] Calcified cerebral meningioma 05/27/2017 09/02/2017 [facility] MENINGIOMA Active 05/26/2017 [facility] Displaced fracture of proximal phalanx of right middle finger, subsequent encounter for fracture with routine healing 09/02/2017 [facility] Fall from chair, subsequent encounter 09/02/2017 [facility] Type 2 diabetes mellitus with diabetic chronic kidney disease 09/02/2017 [facility] Hypertensive chronic kidney disease with stage 1 through stage 4 chronic kidney disease, or unspecified chronic kidney disease 09/02/2017 [facility] Chronic kidney disease, stage 4 09/02/2017 [facility] Dorsalgia, unspecified 10/01/2017 [facility] Personal history of malignant neoplasm of breast 10/01/2017 [facility] Chronic kidney disease, unspecified 10/01/2017 [facility] Medications Medication Details Route Status Patient Instructions Ordering Provider Order Date Source Diazepam 5 MG Oral Tablet [Valium] 5 mg=1 tab, PO, Daily, PRN Anxiety, X 3 day, # 3 tab, 0 Refill(s) No Longer Active 06/26/2017 [facility] Fentanyl 25 microgram, 0.5 mL, Route: IVP, Drug form: INJ, ONCE, Dosing Weight 132.273, kg, Priority: STAT, Start date: 06/25/17 16:43:00 CUSTOMER ADVISOR SPECIALIST, Stop date: 06/25/17 16:43:00 CSTNotes: (Same as: Sublimaze) Preservative free. No Longer Active 06/25/2017 [facility] Valium 5 mg, 1 tab, Route: PO, Drug form: TAB, ONCE, Dosing Weight 132.273, kg, Priority: STAT, Start date: 06/25/17 16:42:00 CUSTOMER ADVISOR SPECIALIST, Stop date: 06/25/17 16:42:00 CSTNotes: (Same as: Valium) Inactive 06/25/2017 [facility] Fentanyl 25 microgram, 0.5 mL, Route: IVP, Drug form: INJ, ONCE, Dosing Weight 132.273, kg, Priority: STAT, Start date: 06/25/17 16:11:00 CUSTOMER ADVISOR SPECIALIST, Stop date: 06/25/17 16:11:00 CSTNotes: (Same as: Sublimaze) Preservative free. Inactive 06/25/2017 [facility] Saline Flush 0.9% 10 mL, Route: IVP, Drug Form: INJ, Dosing Weight 132.273, kg, PRN, PRN Line Flush, Start date: 06/25/17 16:11:00 CUSTOMER ADVISOR SPECIALIST, Duration: 30 day, Stop date: 07/25/17 17:10:00 CDTNotes: preservative free. Inactive 06/25/2017 [facility] Keppra 500 mg, 1 tab, Route: PO, Drug form: TAB, Q12H, Dosing Weight 130, kg, Start date: 05/27/17 9:00:00 CUSTOMER ADVISOR SPECIALIST, Duration: 30 day, Stop date: 06/25/17 21:00:00 CSTNotes: (Same as:Keppra) Inactive 05/27/2017 [facility] Levetiracetam 500 MG Oral Tablet [Keppra] 500 mg=1 tab, PO, BID, # 60 tab, 0 Refill(s) Active 05/27/2017 [facility] Allergies, Adverse Reactions, Alerts Substance Category Reaction Severity Reaction type Status Date Reported Comments Source Immunizations Immunization Date Given Site Status Last Updated Comments Source Results Order Name Results Value Reference Range Date Interpretation Comments Source CARDIAC ENZYMES CK MB Index 0.6 0.0 - 2.5 06/25/2017 [facility] CARDIAC ENZYMES BNP 82 pg/mL <=100 pg/mL 06/25/2017 [facility] CARDIAC ENZYMES Total CK 81 unit/L 12 - 191 06/25/2017 [facility] CARDIAC ENZYMES CK MB 0.5 ng/mL 0.5 - 3.6 06/25/2017 [facility] CARDIAC ENZYMES Troponin-I null 0.00 - 0.40 06/25/2017 [facility] ELECTROLYTES Potassium Lvl 5.2 meq/L 3.5 - 5.1 06/25/2017 [facility] ELECTROLYTES Glucose Lvl 139 mg/dL 70 - 99 06/25/2017 [facility] ELECTROLYTES BUN 72 mg/dL 7 - 22 06/25/2017 [facility] ELECTROLYTES eGFR 15 mL/min/1.73m2 06/25/2017 Result Comment: The eGFR is calculated using the CKD-EPI formula. In most young, healthy individuals the eGFR will be >90 mL/min/1.73m2. The eGFR declines with age. An eGFR of 60-89 may be normal in some populations, particularly the elderly, for whom the CKD-EPI formula has not been extensively validated. Use of the eGFR is not recommended in the following populations: Individuals with unstable creatinine concentrations, including patients and those with serious co-morbid conditions. Patients with extremes in muscle mass or diet. The data above are obtained from the National Kidney Disease Education Program (NKDEP) which additionally recommends that when the eGFR is used in patients with extremes of body mass index for purposes of drug dosing, the eGFR should be multiplied by the estimated BMI. [facility] ELECTROLYTES AGAP 11.2 meq/L 10.0 - 20.0 06/25/2017 [facility] ELECTROLYTES Bili Total 0.6 mg/dL 0.2 - 1.3 06/25/2017 [facility] ELECTROLYTES B/C Ratio 23 6 - 25 06/25/2017 [facility] ELECTROLYTES Globulin 3.9 g/dL 2.7 - 4.2 06/25/2017 [facility] ELECTROLYTES A/G Ratio 0.7 0.7 - 1.6 06/25/2017 [facility] ELECTROLYTES Albumin Lvl 2.9 g/dL 3.5 - 5.0 06/25/2017 [facility] Total Protein 6.8 g/dL 6.4 - 8.4 06/25/2017 [facility] ELECTROLYTES ALT 28 unit/L 0 - 65 06/25/2017 [facility] ELECTROLYTES AST 22 unit/L 0 - 37 06/25/2017 [facility] ELECTROLYTES Alk Phos 62 unit/L 39 - 136 06/25/2017 [facility] ELECTROLYTES Chloride Lvl 102 meq/L 95 - 109 06/25/2017 [facility] ELECTROLYTES CO2 28 meq/L 24 - 32 06/25/2017 [facility] ELECTROLYTES Creatinine Lvl 3.09 mg/dL 0.50 - 1.40 06/25/2017 [facility] ELECTROLYTES Calcium Lvl 8.4 mg/dL 8.5 - 10.5 06/25/2017 [facility] ELECTROLYTES Sodium Lvl 136 meq/L 135 - 145 06/25/2017 [facility] HEMATOLOGY Lymphocytes # 2.2 K/CMM 1.0 - 5.5 06/25/2017 [facility] HEMATOLOGY Basophils # 0.1 K/CMM 0.0 - 0.2 06/25/2017 [facility] HEMATOLOGY Eosinophils # 0.2 K/CMM 0.0 - 0.5 06/25/2017 [facility] HEMATOLOGY Basophils 0.6 % 0.0 - 1.0 06/25/2017 [facility] HEMATOLOGY Segs-Bands # 8.2 K/CMM 1.5 - 8.1 06/25/2017 [facility] HEMATOLOGY Monocytes # 0.9 K/CMM 0.0 - 0.8 06/25/2017 [facility] Lymphocytes 19.0 % 20.0 - 40.0 06/25/2017 [facility] Eosinophils 1.8 % 0.0 - 4.0 06/25/2017 [facility] Segs 71.0 % 45.0 - 75.0 06/25/2017 [facility] Monocytes 7.6 % 2.0 - 12.0 06/25/2017 [facility] RDW 15.4 % 11.5 - 14.5 06/25/2017 [facility] MPV 7.9 fL 7.4 - 10.4 06/25/2017 [facility] Platelet 295 K/CMM 133 - 450 06/25/2017 [facility] MCHC 33.5 g/dL 32.0 - 36.0 06/25/2017 [facility] Hgb 10.8 g/dL 12.0 - 16.0 06/25/2017 [facility] MCH 32.1 pg 27.0 - 31.0 06/25/2017 [facility] Hct 32.2 % 36.0 - 48.0 06/25/2017 [facility] MCV 95.9 fL 80.0 - 98.0 06/25/2017 [facility] RBC 3.36 M/CMM 4.20 - 5.40 06/25/2017 [facility] WBC 11.5 K/CMM 3.7 - 10.4 06/25/2017 [facility] Chest 2 views DX Chest 2 views DX Clinical Indication: Chest pain Comparison: None FINDINGS: The PA and lateral chest radiographs shows normal lung volumes without interstitial or airspace opacities, pleural effusions or pneumothorax. The heart size and pulmonary vasculature are normal. The trachea is midline. There are no clinically significant osseous abnormalities noted. IMPRESSION: No chest radiographic evidence of acute cardiopulmonary disease. SL: [id number] 06/25/2017 - - Read by: Bebeto Palomino MD Dictated Date/time: 06/25/17 15:07 Electronically Signed by: Bebeto Palomino MD 06/25/17 15:07 FINAL REPORT [facility] CHEM PANEL Lactic Acid Lvl 2.3 mMol/L 0.5 - 2.2 05/27/2017 [facility] CHEM PANEL eGFR 11 mL/min/1.73m2 05/27/2017 Result Comment: The eGFR is calculated using the CKD-EPI formula. In most young, healthy individuals the eGFR will be >90 mL/min/1.73m2. The eGFR declines with age. An eGFR of 60-89 may be normal in some populations, particularly the elderly, for whom the CKD-EPI formula has not been extensively validated. Use of the eGFR is not recommended in the following populations: Individuals with unstable creatinine concentrations, including patients and those with serious co-morbid conditions. Patients with extremes in muscle mass or diet. The data above are obtained from the National Kidney Disease Education Program (NKDEP) which additionally recommends that when the eGFR is used in patients with extremes of body mass index for purposes of drug dosing, the eGFR should be multiplied by the estimated BMI. [facility] CHEM PANEL Creatinine Lvl 4.08 mg/dL 0.50 - 1.40 05/27/2017 [facility] CHEM PANEL Sodium Lvl 137 meq/L 135 - 145 05/27/2017 [facility] CHEM PANEL Glucose Lvl 353 mg/dL 70 - 99 05/27/2017 [facility] CHEM PANEL Chloride Lvl 103 meq/L 95 - 109 05/27/2017 [facility] CHEM PANEL BUN 82 mg/dL 7 - 22 05/27/2017 [facility] CHEM PANEL Potassium Lvl 5.4 meq/L 3.5 - 5.1 05/27/2017 [facility] CHEM PANEL Calcium Lvl 9.8 mg/dL 8.5 - 10.5 05/27/2017 [facility] CHEM PANEL CO2 23 meq/L 24 - 32 05/27/2017 [facility] CHEM PANEL AGAP 16.4 meq/L 10.0 - 20.0 05/27/2017 [facility] HEMATOLOGY PTT 29.4 s 22.9 - 35.8 05/27/2017 [facility] HEMATOLOGY MCH 31.6 pg 27.0 - 31.0 05/27/2017 [facility] HEMATOLOGY MCV 95.4 fL 80.0 - 98.0 05/27/2017 [facility] HEMATOLOGY Hct 32.6 % 36.0 - 48.0 05/27/2017 [facility] HEMATOLOGY Hgb 10.8 g/dL 12.0 - 16.0 05/27/2017 [facility] HEMATOLOGY MCHC 33.1 g/dL 32.0 - 36.0 05/27/2017 [facility] HEMATOLOGY WBC 8.0 K/CMM 3.7 - 10.4 05/27/2017 [facility] HEMATOLOGY RBC 3.42 M/CMM 4.20 - 5.40 05/27/2017 [facility] HEMATOLOGY RDW 15.1 % 11.5 - 14.5 05/27/2017 [facility] HEMATOLOGY MPV 8.6 fL 7.4 - 10.4 05/27/2017 [facility] HEMATOLOGY Platelet 249 K/CMM 133 - 450 05/27/2017 [facility] HEMATOLOGY Segs-Bands # 5.6 K/CMM 1.5 - 8.1 05/27/2017 [facility] HEMATOLOGY Monocytes # 0.8 K/CMM 0.0 - 0.8 05/27/2017 [facility] HEMATOLOGY Lymphocytes # 1.4 K/CMM 1.0 - 5.5 05/27/2017 [facility] HEMATOLOGY Basophils 0.6 % 0.0 - 1.0 05/27/2017 [facility] HEMATOLOGY Eosinophils 2.2 % 0.0 - 4.0 05/27/2017 [facility] HEMATOLOGY Monocytes 10.3 % 2.0 - 12.0 05/27/2017 [facility] HEMATOLOGY Lymphocytes 17.1 % 20.0 - 40.0 05/27/2017 [facility] HEMATOLOGY Segs 69.8 % 45.0 - 75.0 05/27/2017 [facility] HEMATOLOGY Eosinophils # 0.2 K/CMM 0.0 - 0.5 05/27/2017 [facility] HEMATOLOGY PT 13.6 s 12.0 - 14.7 05/27/2017 [facility] HEMATOLOGY INR 1.04 0.85 - 1.17 05/27/2017 [facility] Wrist complete DX Wrist complete DX EXAM: XR RIGHT WRIST 3 VIEWS EXAM: XR RIGHT FOREARM 2 VIEWS DATE: 05/27/2017 at 0225 hours INDICATION: Fracture suggested on outside facility radiographs ADDITIONAL CLINICAL INFORMATION: Patient reports having pain and swelling of the middle finger after traumatic incident approximately 2 weeks ago. COMPARISON: Wrist and forearm radiographs 05/26/2017 [facility] SECTION: ER TECHNIQUE: 3 views of the wrist, 2 views of the forearm FINDINGS: Wrist: Marginal osteophyte formation and narrowing is seen at distal radial ulnar joint. There is narrowing of the ulnar carpal joint at the articulation with the lunate. There is erosion of right ulnar styloid process. Marginal sclerosis and joint space narrowing is seen at the scaphoid-trapezium articulation. Marginal osteophyte formation, marginal sclerosis and joint narrowing are present at is seen at the first MCP joint. Minimally displaced, oblique intra-articular fracture is seen through the anterior lateral border of the base of the middle phalanx of right long finger. Forearm: No acute fracture or malalignment is identified. Soft tissues: Subcutaneous fat stranding is seen at the dorsal medial aspect of distal right forearm. IMPRESSION: 1. Subacute, oblique intra-articular fracture at the anterior lateral border of the base of proximal phalanx right long finger. Patient reports pain and swelling since trauma which occurred 2 weeks prior to these radiographs. 2. No evidence of fracture the radius or ulna. 3. Osteoarthritis of distal radial ulnar joint, ulnar carpal joint and also scaphoid trapezium articulation as well as metacarpal phalangeal joint of right thumb. 4. There is erosion of right ulnar styloid process. This can be seen in the presence of inflammatory arthritides. It may also be a sequela posttraumatic osteolysis. 5. There is no acute osseous abnormality of the remainder of the right forearm. 6. Subcutaneous fat stranding is present at the dorsal medial aspect of distal right forearm. 05/27/2017 - - This report was dictated by a Nerve Specialist/Fellow. I have personally reviewed the images as well as the Resident's interpretation and agree with the findings. Read by: Aakash Jones MD Resident: Aakash Jones MD Dictated Date/time: 05/27/17 02:37 Electronically Signed by: Carmen Aquino MD 05/27/17 02:56 FINAL REPORT [facility] Forearm 2 views DX Forearm 2 views DX EXAM: XR RIGHT WRIST 3 VIEWS EXAM: XR RIGHT FOREARM 2 VIEWS DATE: 05/27/2017 at 0225 hours INDICATION: Fracture suggested on outside facility radiographs ADDITIONAL CLINICAL INFORMATION: Patient reports having pain and swelling of the middle finger after traumatic incident approximately 2 weeks ago. COMPARISON: Wrist and forearm radiographs 05/26/2017 [facility] SECTION: ER TECHNIQUE: 3 views of the wrist, 2 views of the forearm FINDINGS: Wrist: Marginal osteophyte formation and narrowing is seen at distal radial ulnar joint. There is narrowing of the ulnar carpal joint at the articulation with the lunate. There is erosion of right ulnar styloid process. Marginal sclerosis and joint space narrowing is seen at the scaphoid-trapezium articulation. Marginal osteophyte formation, marginal sclerosis and joint narrowing are present at is seen at the first MCP joint. Minimally displaced, oblique intra-articular fracture is seen through the anterior lateral border of the base of the middle phalanx of right long finger. Forearm: No acute fracture or malalignment is identified. Soft tissues: Subcutaneous fat stranding is seen at the dorsal medial aspect of distal right forearm. IMPRESSION: 1. Subacute, oblique intra-articular fracture at the anterior lateral border of the base of proximal phalanx right long finger. Patient reports pain and swelling since trauma which occurred 2 weeks prior to these radiographs. 2. No evidence of fracture the radius or ulna. 3. Osteoarthritis of distal radial ulnar joint, ulnar carpal joint and also scaphoid trapezium articulation as well as metacarpal phalangeal joint of right thumb. 4. There is erosion of right ulnar styloid process. This can be seen in the presence of inflammatory arthritides. It may also be a sequela posttraumatic osteolysis. 5. There is no acute osseous abnormality of the remainder of the right forearm. 6. Subcutaneous fat stranding is present at the dorsal medial aspect of distal right forearm. 05/27/2017 - - This report was dictated by a Nerve Specialist/Fellow. I have personally reviewed the images as well as the Resident's interpretation and agree with the findings. Read by: Aakash Jones MD Resident: Aakash Jones MD Dictated Date/time: 05/27/17 02:37 Electronically Signed by: Carmen Aquino MD 05/27/17 02:56 FINAL REPORT [facility] Brain wo contrast MRI Brain wo contrast MRI EXAM: MRI BRAIN WITH AND WITHOUT CONTRAST DATE: 05/26/2017 INDICATION: Mass REFERENCE: Brain CT of the same date performed at [facility] TECHNIQUE: Multiplanar, multisequence MRI of the brain IV contrast: None FINDINGS: There is a calcified extra-axial mass in the left frontal region, measuring up to 3 cm x 2.8 cm x 2.3 cm ([id number] x AP x [id number]). This exerts localized mass effect upon the subjacent frontal cortex. There is no diffusion restriction. FLAIR imaging shows mild chronic small vessel ischemic changes in the supratentorial white matter. The ventricles and basal cisterns are patent. The flow voids of the proximal intracranial arteries are preserved. There are mucosal changes in the right ethmoid air cells and right frontal sinus. The paranasal sinuses including the mastoid air cells are otherwise clear. The orbital globes are unremarkable in appearance. Multiple axial T1 3-D images are also acquired for localization purposes, utilizing the STEALTH protocol. IMPRESSION: Findings most consistent with a calcified left frontal meningioma No acute brain parenchymal abnormality STEALTH protocol completed 05/26/2017 - - Read by: Kirby Romero MD Dictated Date/time: 05/27/17 00:51 Electronically Signed by: Kirby Romero MD 05/27/17 01:03 FINAL REPORT [facility] Wrist complete DX Wrist complete DX EXAM: XR RIGHT WRIST 3 VIEWS DATE: 05/26/2017 at 2208 hours INDICATION: - post reduction film from outside hospital; radius fx COMPARISON: Forearm radiograph from outside facility May 26, 2017 [facility] SECTION: ER TECHNIQUE: PA, lateral and oblique radiographs of the wrist FINDINGS: Overlying splint/cast limits evaluation of fine osseous detail. No displaced fracture is seen. There is mild buckling of the volar radial metaphysis. There is marginal osteophyte formation seen at the distal ulna narrowing the distal radial ulnar joint. There is marginal sclerosis and narrowing of the ulnar carpal joint adjacent to the lunate. Additional narrowing is seen between the intercarpal joints adjacent to the scaphoid bone as well as at metacarpal phalangeal joint of right thumb. An oblique fracture is present at the volar and anterior aspect of the base of proximal phalanx of right long finger. Evaluation of the soft tissues is limited due to the overlying cast. IMPRESSION: Mild buckling of the volar radial metaphysis is unlikely to represent an acute fracture, though, evaluation is limited due to overlying cast material. Oblique fracture is partially seen at the anterior lateral aspect of the base of proximal phalanx of right long finger. 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 05/26/2017 - - This report was dictated by a Nerve Specialist/Fellow. I have personally reviewed the images as well as the Resident's interpretation and agree with the findings. Read by: Aakash Jones MD Resident: Aakash Jones MD Dictated Date/time: 05/26/17 23:01 Electronically Signed by: Carmen Aquino MD 05/27/17 06:52 FINAL REPORT [facility] Brain-Outside Consult CT Brain-Outside Consult CT EXAM: CT BRAIN WITHOUT CONTRAST DATE: 05/26/2017 INDICATION: Altered mental status COMPARISON: None TECHNIQUE: Routine axial images obtained at [facility] with sagittal and coronal reformats are submitted for 2nd opinion. IV contrast: None DISCUSSION: There is a calcified extra-axial mass along the left frontal convexity. This measures at least 2.7 cm x 2.1 cm (AP x [id number]). No acute brain parenchymal abnormality is evident. The ventricles and basal cisterns are patent. Note is made of bilateral hyperostosis frontalis interna. Calvarium and skull base are otherwise unremarkable. There are atherosclerotic calcifications in the bilateral carotid siphons and vertebrobasilar arteries. There is no effusion in the mastoid air cells or visible paranasal sinuses. There is evidence of prior scleral banding on the right. The orbital globes are otherwise unremarkable. IMPRESSION: Calcified extra-axial mass in the left frontal region, most consistent with meningioma No acute brain parenchymal abnormality [facility] SECTION: Neuro 05/26/2017 - - This report was dictated by a Nerve Specialist/Fellow. I have personally reviewed the images as well as the Resident's interpretation and agree with the findings. Read by: Aakash Jones MD Resident: Aakash Jones MD Dictated Date/time: 05/26/17 21:14 Electronically Signed by: Kirby Romero MD 05/27/17 02:10 FINAL REPORT [facility] Vital Signs Vital Sign Value Date Comments Source Heart Rate 71 06/26/2017 [facility] Systolic (mm Hg) 137 06/26/2017 [facility] Diastolic (mm Hg) 87 06/26/2017 [facility] Respitory Rate 17 06/26/2017 [facility] Temperature Oral (F) 98.0 F 06/26/2017 [facility] Respitory Rate 18 06/25/2017 [facility] Systolic (mm Hg) 149 06/25/2017 [facility] Diastolic (mm Hg) 79 06/25/2017 [facility] Temperature Oral (F) 98.2 F 06/25/2017 [facility] Heart Rate 78 06/25/2017 [facility] Weight 132.273 06/25/2017 [facility] BMI Calculated 45.67 06/25/2017 [facility] Systolic (mm Hg) 150 06/25/2017 [facility] Diastolic (mm Hg) 69 06/25/2017 [facility] Heart Rate 67 06/25/2017 [facility] Respitory Rate 20 06/25/2017 [facility] Height 170.18 cm 06/25/2017 [facility] Temperature Oral (F) 98.3 F 06/25/2017 [facility] Systolic (mm Hg) 145 05/27/2017 [facility] Diastolic (mm Hg) 71 05/27/2017 [facility] Respitory Rate 20 05/27/2017 [facility] Systolic (mm Hg) 92 05/27/2017 [facility] Diastolic (mm Hg) 55 05/27/2017 [facility] Respitory Rate 20 05/27/2017 [facility] Systolic (mm Hg) 122 05/27/2017 [facility] Diastolic (mm Hg) 53 05/27/2017 [facility] Respitory Rate 22 05/27/2017 [facility] Height 170.18 cm 05/27/2017 [facility] BMI Calculated 44.89 05/27/2017 [facility] Heart Rate 68 05/27/2017 [facility] Temperature Oral (F) 98.1 F 05/27/2017 [facility] Weight 130 05/27/2017 [facility] Encounters Location Location Details Encounter Type Encounter Number Reason For Visit Attending Provider ADM Date DC Date Status Source [facility] Emergency [id number] Pacheco Quintero 05/27/2017 05/27/2017 [facility] Emergency [id number] Nguyen Simons 06/25/2017 06/26/2017 [facility] [place] Message [id number] 06/28/2017 06/30/2017 [facility] Procedure Code Date Perfomer Comments Source
--- OUTSIDE RECORDS SUMMARY | 2018-02-21 12:56 | XMS REPORT | Clinical Summary ---
Author Author [facility] Address Unknown Phone Unavailable Care Team Providers Care Supervisor Costuming Name Role Phone PCP Unavailable Allergies Not on File Current Medications Not on file Active Problems Not on file Social History Tobacco Use Types Packs/Day Years Used Date Never Assessed Sex Assigned at Date Recorded Not on file Last Filed Vital Signs Not on file Plan of Treatment Not on file Results Not on fileafter 02/15/2017
== END | disposition home or self-care (01) ==
LOC: OR 07:27
PROVIDERS: ATTEND Podiatrist Foot & Ankle Surgery
DX: T84.84XA Pain due to internal orthopedic prosthetic devices, implants and grafts, initial encounter (principal); L03.116 Cellulitis of left lower limb; L02.612 Cutaneous abscess of left foot; G47.30 Sleep apnea, unspecified; E11.22 Type 2 diabetes mellitus with diabetic chronic kidney disease; N18.9 Chronic kidney disease, unspecified; I50.9 Heart failure, unspecified; G40.409 Other generalized epilepsy and epileptic syndromes, not intractable, without status epilepticus; E66.01 Morbid (severe) obesity due to excess calories; Y83.8 Other surgical procedures as the cause of abnormal reaction of the patient, or of later complication, without mention of misadventure at the time of the procedure; Z79.82 Long term (current) use of aspirin; Z79.4 Long term (current) use of insulin
CPT/HCPCS: 20694; 36415; 80048; 85025; 86850; 86900; 87071; 87075; 87186; 87205; J0690; J2001; J2250; J2704; 76000; J2710

== ENCOUNTER 2018-03-03 12:55 | Inpatient (IN) | payer OTHER ==
[~2018-03-03] VITALS: Ht 170.2 cm; Wt 137.0 kg
[~2018-03-03 12:55] MED LIST changes: -BACITRACIN 50,000 UNIT VIAL ONE; -BUPIVACAINE HCL 0.5% INJ 30 ML VIAL INJ ONE; -CEFAZOLIN SOD 2 GM/D5W 50ML 50 ML IV ONE; -FENTANYL CITRATE/PF 100MCG/2 ML INJ ONE; -KEPPRA250 MG; -LIDOCAINE HCL 2% LOCAL INJ 5 ML SDV VIAL INJ ONE; -MIDAZOLAM HCL 2 MG/2 ML VIAL ONE; -NEOSTIGMINE 1 MG/ML 10ML VIAL ONE; -PROPOFOL IV EMULSION 10 MG/ML 20 ML VIAL ONE
--- OUTSIDE RECORDS SUMMARY | 2018-03-03 12:58 | XMS REPORT | Clinical Summary ---
Author Author GILBERT [facility] Address Unknown Phone Unavailable Care Team Providers Care Cookie Breaker Name Role Phone PCP Unavailable Allergies Not on File Current Medications Not on file Active Problems Not on file Social History Tobacco Use Types Packs/Day Years Used Date Never Assessed Sex Assigned at Date Recorded Not on file Last Filed Vital Signs Not on file Plan of Treatment Not on file Results Not on fileafter 03/02/2017
[2018-03-03] MEDS ORDERED: MORPHINE SULFATE 2 MG/ML SYR IV PRN (15:15)
[2018-03-03] MEDS ORDERED: SODIUM CHLORIDE FLUSH 10 ML SYR INJ PRN ×2 (15:15→18:45)
[2018-03-03] MEDS ORDERED: ONDANSETRON HCL INJ 2 MG/ML VIAL IV PRN (15:15)
[2018-03-03] MEDS ORDERED: ALBUTEROL/IPRATROPIUM 3 ML NEB NEB ONE (15:30)
--- NOTE | 2018-03-03 16:25 | Diagnostic Imaging Report ---
EXAMINATION: CHEST SINGLE (PORTABLE) INDICATION: Shortness of breath. Cough COMPARISON: 10/06/2017. FINDINGS: TUBES and LINES: None. LUNGS: The lungs are hypoinflated. Perihilar peribronchial hazy opacity could be due to bronchitis or pulmonary edema PLEURA: Likely small pleural effusions. HEART AND MEDIASTINUM: The heart is enlarged. There is pulmonary vascular congestion BONES AND SOFT TISSUES: No acute osseous lesion. Soft tissues are unremarkable. Prior vertebroplasty. UPPER ABDOMEN: No free air under the diaphragm. IMPRESSION: Findings likely due to congestive heart failure. Follow-up imaging is indicated to document clearing. Signed by: Dr. Bucky Friend M.D. on 03/03/2018 4:22 PM
[2018-03-03] MEDS ORDERED: FUROSEMIDE INJ 10 MG/ML 4 ML VIAL IV ONE (16:30)
[2018-03-03 17:32] LABS: BASOPHILS % 0.5 % (0.0-1.0); EOSINOPHILS # (AUTO) 0.2 (0.0-0.4); EOSINOPHILS % 3.6 % (0.0-6.0); HEMATOCRIT 23.6 % (34.2-44.1); HEMOGLOBIN 7.5 g/dL (12.0-16.0); LYMPHOCYTES # (AUTO) 0.8 (1.0-3.2); LYMPHOCYTES % 13.1 % (18.0-39.1); MEAN CORPUSCULAR HEMOGLOBIN 29.5 pg (28-32); MEAN CORPUSCULAR HGB CONC 31.8 g/dL (31-35); MEAN CORPUSCULAR VOLUME 92.9 fL (81-99); MONOCYTES # (AUTO) 0.6 (0.2-0.8); MONOCYTES % 9.5 % (4.4-11.3); NEUTROPHILS # (AUTO) 4.4 (2.1-6.9); PLATELET COUNT 353 x10e3/uL (140-360); RED BLOOD COUNT 2.54 x10e6/uL (3.6-5.1); RED CELL DISTRIBUTION WIDTH 15.1 % (11.7-14.4)
[2018-03-03 17:43] LABS: ALBUMIN 2.5 g/dL (3.5-5.0); ALBUMIN/GLOBULIN RATIO 0.8 (0.8-2.0); ANION GAP 17.2 mmol/L (8-16); CALCIUM 8.9 mg/dL (8.4-10.2); CREATININE, SERUM 6.47 mg/dL (0.57-1.11); POTASSIUM 4.2 mmol/L (3.5-5.1)
[2018-03-03] MEDS ORDERED: SODIUM CHLORIDE 0.9% 250ML 250 ML IV ONE (18:45)
[2018-03-03] MEDS ORDERED: ASPIRIN 81 MG CHEW TAB PO ONE (18:45)
--- OUTSIDE RECORDS SUMMARY | 2018-03-03 19:00 | XMS REPORT | Clinical Summary ---
Author Author GILBERT [facility] Address Unknown Phone Unavailable Care Team Providers Care Soft Sugar Supervisor Name Role Phone PCP Unavailable Allergies Not on File Current Medications Not on file Active Problems Not on file Social History Tobacco Use Types Packs/Day Years Used Date Never Assessed Sex Assigned at Date Recorded Not on file Last Filed Vital Signs Not on file Plan of Treatment Not on file Results Not on fileafter 03/02/2017
--- NOTE | 2018-03-03 23:11 | Diagnostic Imaging Report ---
EXAM: VENTILATION PERFUSION LUNG SCAN INDICATION: Shortness of breath COMPARISON: Chest radiograph 03/03/2018 DISCUSSION: Xenon-133 gas 15 mCi was administered via inhalation. Dynamic images of the lungs in the posterior projection were obtained through single breath and washout phases. Distribution of tracer activity Is minimally irregular throughout the lungs. Washout is diffusely delayed. Perfusion images of the lungs in multiple projections were obtained following intravenous administration of 6 mCi of Tc-99m MAA. Distribution of tracer mildly irregular throughout the lungs. There is a small defect of the right posterior lung. The perfusion images are well matched to the ventilation images. Chest radiograph shows enlarged cardiac silhouette and suspected small effusions. Images of the head and kidneys were obtained and show no intracranial or renal parenchyma accumulation of tracer. IMPRESSION: Scan findings represent a LOW probability for acute pulmonary embolic disease based on the PIOPED II criteria. Signed by: Dr Mercedes Stark MD on 03/03/2018 11:08 PM
[2018-03-03] MEDS: ENOXAPARIN SOD INJ 40 MG/0.4 ML SYR SC SCH (23:20)
[2018-03-03] MEDS: ALBUTEROL/IPRATROPIUM 3 ML NEB NEB SCH (23:30)
[2018-03-03] MEDS ORDERED: LEVETIRACETAM 500 MG TAB PO ONE (23:45)
[2018-03-04 02:55] LABS: CREATINE KINASE 83 IU/L (29-168)
[2018-03-04] MEDS: ALBUTEROL/IPRATROPIUM 3 ML NEB NEB SCH ×6 (03:00→22:15)
[2018-03-04 03:01] LABS: BASOPHILS % 0.2 % (0.0-1.0); EOSINOPHILS # (AUTO) 0.3 (0.0-0.4); EOSINOPHILS % 4.7 % (0.0-6.0); LYMPHOCYTES # (AUTO) 1.2 (1.0-3.2); LYMPHOCYTES % 19.7 % (18.0-39.1); MEAN CORPUSCULAR HEMOGLOBIN 29.9 pg (28-32); MEAN CORPUSCULAR HGB CONC 32.7 g/dL (31-35); MEAN CORPUSCULAR VOLUME 91.3 fL (81-99); MONOCYTES # (AUTO) 0.6 (0.2-0.8); MONOCYTES % 10.3 % (4.4-11.3); NEUTROPHILS # (AUTO) 3.9 (2.1-6.9); NEUTROPHILS % 64.8 % (38.7-80.0); PLATELET COUNT 294 x10e3/uL (140-360); RED BLOOD COUNT 2.31 x10e6/uL (3.6-5.1); RED CELL DISTRIBUTION WIDTH 15.3 % (11.7-14.4)
[2018-03-04 03:05] LABS: HEMATOCRIT 21.1 % (34.2-44.1); HEMOGLOBIN 6.9 g/dL (12.0-16.0)
[2018-03-04] MEDS ORDERED: FUROSEMIDE INJ 10 MG/ML 4 ML VIAL IV ONE (03:30)
[2018-03-04] MEDS ORDERED: DEXTROSE 50% SYRINGE 50 ML IV PRN (05:15)
--- NOTE | 2018-03-04 06:12 | Diagnostic Imaging Report ---
CHEST SINGLE (PORTABLE), 03/04/2018 7:00 AM Technique: CHEST SINGLE (PORTABLE) Comparison: Previous day Clinical history: Congestive heart failure Findings: Stable appearance of the heart, mediastinum, lungs, pleural spaces and bones. Impression: Stable enlarged cardiac silhouette with lower lung predominant opacities, favor a combination of edema, atelectasis and layering pleural effusions. Signed by: Dr Mercedes Stark MD on 03/04/2018 6:08 AM
[2018-03-04] MEDS ORDERED: HYDRALAZINE HCL 20 MG/ML VIAL IV STA (06:27)
[2018-03-04 07:05] LABS: ANION GAP 21.9 mmol/L (8-16); CALCIUM 8.7 mg/dL (8.4-10.2); CREATININE, SERUM 6.69 mg/dL (0.57-1.11); POTASSIUM 3.9 mmol/L (3.5-5.1)
[2018-03-04] MEDS ORDERED: SPIRONOLACTONE 25 MG TAB PO SCH (09:00)
[2018-03-04] MEDS: FUROSEMIDE INJ 10 MG/ML 4 ML VIAL IV SCH ×3 (09:44→17:36)
[2018-03-04] MEDS: INSULIN REGULAR, HUMAN 100 UNIT/1 ML 3ML VIAL SQ SCH ×4 (09:53→21:00)
[2018-03-04 10:02] LABS: INR 1.06; PROTHROMBIN TIME 14.8 seconds (11.9-14.5)
[2018-03-04 10:03] LABS: PARTIAL THROMBOPLASTIN TIME 37.1 seconds (23.8-35.5)
[2018-03-04 10:10] LABS: CREATINE KINASE 91 IU/L (29-168)
[2018-03-04 10:14] LABS: CREATINE KINASE MB < 1.00 ng/mL (0-4.3)
--- NOTE | 2018-03-04 11:28 | Diagnostic Imaging Report ---
Exam: Ultrasound guidance for vascular access. History: Patient with ELGIN in need of emergent dialysis. Comparison: None available Findings: Preliminary ultrasound reveals the right IJ to be patent. Ultrasound was utilized as guidance for puncture of the right internal jugular vein with a 21-gauge skinny needle. A 0.018 " wire was then advanced through the needle with fluoroscopic guidance. Micropuncture sheath was then advanced over the wire. Impression: Patent right internal jugular vein with ultrasound guidance for puncture to place a temporary hemodialysis catheter. Signed by: Dr. Eben Martins DO on 03/04/2018 11:24 AM
[2018-03-04 12:00] VITALS: BP 143/89
[2018-03-04 14:28] VITALS: BP 143/89
[2018-03-04] MEDS ORDERED: HEPARIN SOD (PORCINE) 5,000 UNIT/ML VIAL INJ PRN ×2 (16:00→16:15)
[2018-03-04] MEDS ORDERED: SODIUM CHLORIDE 0.9% 1000ML 1,000 ML IV PRN (16:00)
[2018-03-04] MEDS ORDERED: KEPPRA250 MG (16:06)
[2018-03-04] MEDS ORDERED: HEPARIN SOD (PORCINE) 1000 UNIT/ML SDV IV PRN (16:15)
[2018-03-04] MEDS ORDERED: GELATIN SPONGE 12-7MM ONE (16:38)
[2018-03-04] MEDS: ENOXAPARIN SOD INJ 40 MG/0.4 ML SYR SC SCH ×2 (17:00→17:36)
[2018-03-04 17:18] VITALS: BP 144/78
[2018-03-04 17:21] LABS: INR 1.12; PROTHROMBIN TIME 15.4 seconds (11.9-14.5)
[2018-03-04 17:22] LABS: PARTIAL THROMBOPLASTIN TIME 34.3 seconds (23.8-35.5)
--- NOTE | 2018-03-04 18:39 | Diagnostic Imaging Report ---
Procedure: Temporary hemodialysis catheter placement Medications: 1% lidocaine. Fluoroscopy time: 1.1 minutes. Dose area product: 5.247 cGycm2 Contrast used: None Procedure in detail: Informed consent for the procedure was obtained from the patient after discussion of risks and benefits. The right neck was prepped and draped in the standard sterile fashion after the patient was placed in the supine position on the fluoroscopic table. 1% lidocaine was administered into the skin and subcutaneous tissues of the right lower neck for local anesthesia. Then, under continuous sonographic guidance, a 21-gauge micropuncture needle was advanced into the right internal jugular vein. A 0.018 inch wire was advanced centrally under fluoroscopic guidance. The needle was then removed and access was secured with a micropuncture sheath. A 0.035 inch Amplatz wire was then advanced through the micropuncture sheath into the inferior vena cava under fluoroscopic guidance. A 13-[place] 20 cm long temporary hemodialysis catheter was then placed over the wire. Tip of the catheter noted within the right atrium. Both lumens show good flow. The patient tolerated the procedure well without immediate complication. Approximately 4 hours post placement a call from the floor nurse was received stating there was continued bleeding on the dressing site. Patient returned to the fluoroscopic suite where the clotted blood and dressing was removed. This revealed oozing at the insertion site. Sterile preparation was again accomplished. Local anesthesia was also again injected with 1% Xylocaine. The insertion site was packed with Gelfoam sponge and two 4-0 Vicryl pursestring sutures were placed at the insertion site. A third pursestring suture utilizing 3-0 Ethilon was also placed. Manual compression over the catheter entry site for 15 minutes was placed and then a new sterile dressing applied. No further bleeding was encountered. Impression: 1. Successful placement of a non-tunneled dual-lumen hemodialysis catheter by a right internal jugular approach. 2. Continued low pressure oozing was encountered requiring 3 pursestring sutures placed around the insertion site and manual pressure applied. 3. The line is now okay for use. Signed by: Dr. Eben Martins DO on 03/04/2018 6:36 PM
[2018-03-04 18:47] LABS: CREATINE KINASE MB 1.1 ng/mL (0-5.0)
--- NOTE | 2018-03-04 19:01 | Consultation ---
DATE OF CONSULTATION: March 04, 2018 REQUESTING PHYSICIAN: Dr. Marquez. REASON FOR CONSULTATION: Acute kidney injury. HISTORY OF PRESENT ILLNESS: Thank you for allowing us to participate in Ms. Pizarro' care. This is a 68-year-old female with a history of chronic kidney disease stage 4, bordering on 5. Prior labs have indicated at least one 24-hour clearance of 16 mL/minute. In the past, last creatinine was about 3 to 4 mg%. She has had evaluation for an access because chemistries had been stable. It had been put off. Currently, she comes in with worsening dyspnea. She recently had foot surgery, having feels better sitting up. No fever as such. Minimal cough. Perhaps greenish sputum. She feels better on oxygen. Unclear of leg swelling is any worse. Chest x-ray showing fluid overload. Creatinine now up to 6.7. Hemoglobin is low. No recent NSAIDs use noted. Se is not on any TRAVIS inhibitor, but she is on Aldactone and bumetanide. Presume diabetic nephropathy. Hemoglobin is now 6.9. Serum CO2 is 27. K is 3.9. PAST HISTORY: CKD 4, presumed diabetic nephropathy, history of fluid overload and chronic diuretics, metabolic acidosis on p.o. bicarbonate, anemia of CKD as well as possibly from the inflammation issues on her foot. CA of the breast status post lumpectomy. We need those records on the right side. CURRENT MEDICATIONS: Please see list. FAMILY HISTORY: Diabetes. SOCIAL HISTORY: Supportive family. Does not drink alcohol or smoke. REVIEW OF SYSTEMS CONSTITUTIONAL: Feels weak. SKIN: Leg is healing. CARDIAC: Dyspnea, orthopnea, respiratory cough, minimal sputum. GI: Having some nausea on and off. No vomiting. NEURO: Feels weak. Rest of review is negative. PHYSICAL EXAMINATION GENERAL: On examination, setting up, appears to be working to breathe somewhat. VITAL SIGNS: Blood pressure 192/119, pulse 86, O2 sats 99% on nasal cannula, temperature 97.8. HEENT: Atraumatic. NECK: Prominent external jugular. CHEST: A few crackles at the bases. CARDIAC: Normal heart tones. Rhythm sound is regular. EXTREMITIES: Trace to 1+ edema. ABDOMEN: Benign. NEURO: Appears to be alert and appropriate. LABS: Reviewed as above. Chest x-ray showing fluid overload. ASSESSMENT 1. Acute kidney injury. 2. Chronic kidney disease 4, this may represent progression to end-stage renal disease. 3. Anemia, severe, multifactorial with partly from the chronic kidney disease. 4. Hypertension, not at goal. 5. Underlying diabetic nephropathy. PLAN: Agree with diuresis. P.r.n. hydralazine. I had a long discussion about initiating dialysis. It may be safe given the combined worsening chemistries, risk of uremia as well as fluid overload and the need for blood transfusion, all occurring at the same time. They appears to be agreeable. We will request special procedure to place line and request the contract nurses for the dialysis services. We will plan on resting tomorrow and getting back to treatment again on March 06, 2018. Keep salt and water restricted. We will follow along. Job#: [id number] CHRIS
[2018-03-04 20:00] VITALS: BP 133/65
[2018-03-04 20:20] VITALS: BP 133/65
[2018-03-05 00:06] VITALS: BP 158/80
[2018-03-05] MEDS: ALBUTEROL/IPRATROPIUM 3 ML NEB NEB SCH ×6 (03:00→23:00)
[2018-03-05 04:00] VITALS: BP 177/81
[2018-03-05] MEDS: HYDRALAZINE HCL 20 MG/ML VIAL IV PRN (06:44)
[2018-03-05] MEDS: INSULIN REGULAR, HUMAN 100 UNIT/1 ML 3ML VIAL SQ SCH (07:30)
[2018-03-05 08:00] VITALS: BP 113/51
[2018-03-05 08:03] LABS: BASOPHILS % 0.6 % (0.0-1.0); EOSINOPHILS # (AUTO) 0.2 (0.0-0.4); EOSINOPHILS % 3.1 % (0.0-6.0); LYMPHOCYTES # (AUTO) 1.1 (1.0-3.2); LYMPHOCYTES % 20.3 % (18.0-39.1); MEAN CORPUSCULAR HEMOGLOBIN 29.3 pg (28-32); MEAN CORPUSCULAR HGB CONC 31.2 g/dL (31-35); MONOCYTES # (AUTO) 0.5 (0.2-0.8); MONOCYTES % 10.1 % (4.4-11.3); NEUTROPHILS # (AUTO) 3.4 (2.1-6.9); NEUTROPHILS % 65.5 % (38.7-80.0); PLATELET COUNT 293 x10e3/uL (140-360); RED BLOOD COUNT 2.15 x10e6/uL (3.6-5.1); RED CELL DISTRIBUTION WIDTH 15.4 % (11.7-14.4)
[2018-03-05 08:05] LABS: HEMATOCRIT 20.2 % (34.2-44.1); HEMOGLOBIN 6.3 g/dL (12.0-16.0)
[2018-03-05 08:24] LABS: CALCIUM 8.5 mg/dL (8.4-10.2); CREATININE, SERUM 5.72 mg/dL (0.57-1.11); PHOSPHORUS 5.9 MG/DL (2.3-4.7)
[2018-03-05] MEDS ORDERED: SODIUM CHLORIDE 0.9% 250ML 250 ML IV ONE (09:00)
[2018-03-05] MEDS: FUROSEMIDE INJ 10 MG/ML 4 ML VIAL IV SCH ×2 (09:00→17:00)
[2018-03-05] MEDS ORDERED: DEXTROSE 50% SYRINGE 50 ML IV PRN (11:15)
[2018-03-05] MEDS: INSULIN LISPRO 100 UNIT/1 ML 3ML VIAL SQ SCH ×5 (11:30→21:00)
[2018-03-05] MEDS: LEVETIRACETAM 500 MG TAB PO SCH ×2 (11:43→17:00)
[2018-03-05] MEDS: ONDANSETRON HCL 4 MG ORAL DISINTEGRATING TAB SL PRN (11:58)
[2018-03-05 12:00] VITALS: BP 135/70
[2018-03-05 16:00] VITALS: BP 129/65
[2018-03-05] MEDS: SODIUM BICARBONATE 650 MG TAB PO SCH (17:00)
[2018-03-05] MEDS: PROPRANOLOL HCL 10 MG TAB PO SCH (17:00)
[2018-03-05 20:03] VITALS: BP 122/58
[2018-03-05] MEDS: INSULIN DETEMIR 100 UNIT/ML PEN SQ SCH (21:00)
[2018-03-05] MEDS: SIMVASTATIN 20 MG TAB PO SCH (21:20)
[2018-03-05] MEDS: TRAMADOL HCL 50 MG TAB PO SCH (21:20)
[2018-03-06] VITALS (10 sets, daily range): BP systolic 116–152; BP diastolic 59–75
[2018-03-06] MEDS: ALBUTEROL/IPRATROPIUM 3 ML NEB NEB SCH ×6 (02:28→23:00)
[2018-03-06] MEDS: INSULIN LISPRO 100 UNIT/1 ML 3ML VIAL SQ SCH ×7 (07:30→21:00)
[2018-03-06] MEDS: SODIUM BICARBONATE 650 MG TAB PO SCH ×2 (08:00→16:39)
[2018-03-06] MEDS: CYANOCOBALAMIN 1,000 MCG TAB PO SCH (09:00)
[2018-03-06] MEDS: PROPRANOLOL HCL 10 MG TAB PO SCH ×2 (09:00→16:37)
[2018-03-06] MEDS: FUROSEMIDE INJ 10 MG/ML 4 ML VIAL IV SCH ×2 (09:00→16:37)
[2018-03-06] MEDS: VITAMIN E 400 UNIT CAP PO SCH (09:00)
[2018-03-06] MEDS: ALLOPURINOL 300 MG TAB PO SCH (09:00)
[2018-03-06] MEDS: LEVETIRACETAM 500 MG TAB PO SCH ×2 (09:00→16:39)
[2018-03-06] MEDS: THIAMINE HCL 100 MG TAB PO SCH (09:00)
[2018-03-06] MEDS: INSULIN DETEMIR 100 UNIT/ML PEN SQ SCH (21:00)
[2018-03-06] MEDS: TRAMADOL HCL 50 MG TAB PO SCH (21:02)
[2018-03-06] MEDS: SIMVASTATIN 20 MG TAB PO SCH (21:02)
[2018-03-07] VITALS (8 sets, daily range): BP systolic 150–165; BP diastolic 65–88
[2018-03-07] MEDS: ALBUTEROL/IPRATROPIUM 3 ML NEB NEB SCH ×6 (03:00→23:00)
[2018-03-07 06:39] LABS: BASOPHILS % 0.3 % (0.0-1.0); EOSINOPHILS # (AUTO) 0.5 (0.0-0.4); EOSINOPHILS % 7.8 % (0.0-6.0); HEMATOCRIT 24.2 % (34.2-44.1); LYMPHOCYTES # (AUTO) 1.4 (1.0-3.2); LYMPHOCYTES % 22.3 % (18.0-39.1); MEAN CORPUSCULAR HEMOGLOBIN 30.2 pg (28-32); MEAN CORPUSCULAR HGB CONC 33.1 g/dL (31-35); MEAN CORPUSCULAR VOLUME 91.3 fL (81-99); MONOCYTES # (AUTO) 0.8 (0.2-0.8); MONOCYTES % 13.7 % (4.4-11.3); NEUTROPHILS # (AUTO) 3.4 (2.1-6.9); NEUTROPHILS % 55.6 % (38.7-80.0); PLATELET COUNT 244 x10e3/uL (140-360); RED BLOOD COUNT 2.65 x10e6/uL (3.6-5.1); RED CELL DISTRIBUTION WIDTH 16.2 % (11.7-14.4)
[2018-03-07] MEDS: INSULIN LISPRO 100 UNIT/1 ML 3ML VIAL SQ SCH ×7 (07:30→21:00)
[2018-03-07] MEDS: SODIUM BICARBONATE 650 MG TAB PO SCH ×2 (08:00→17:00)
[2018-03-07] MEDS: PROPRANOLOL HCL 10 MG TAB PO SCH ×2 (09:00→17:00)
[2018-03-07] MEDS: LEVETIRACETAM 500 MG TAB PO SCH ×2 (09:00→17:00)
[2018-03-07] MEDS: ALLOPURINOL 300 MG TAB PO SCH (09:00)
[2018-03-07] MEDS: CYANOCOBALAMIN 1,000 MCG TAB PO SCH (09:00)
[2018-03-07] MEDS: VITAMIN E 400 UNIT CAP PO SCH (09:00)
[2018-03-07] MEDS: THIAMINE HCL 100 MG TAB PO SCH (09:00)
[2018-03-07] MEDS: FUROSEMIDE INJ 10 MG/ML 4 ML VIAL IV SCH ×2 (09:00→17:00)
--- NOTE | 2018-03-07 12:36 | Consultation ---
DATE OF CONSULTATION: March 07, 2018 PODIATRY SURGERY CONSULTATION REASON FOR CONSULTATION: Left ankle open reduction and internal fixation, previous surgery followup. Ulcer, left 1st MPJ, now healed. HISTORY OF PRESENT ILLNESS: The patient was admitted to the hospital because she started having shortness of breath and fluid overload. She was admitted. She is going to begin dialysis. She knew it was getting time to do it, so she was admitted for beginning of dialysis. PAST MEDICAL HISTORY: Diabetes mellitus, PVD, history of left ankle repair, CHF, end-stage renal disease. PAST SURGICAL HISTORY: Left ankle repair 10 weeks ago. FAMILY HISTORY: Noncontributory. SOCIAL HISTORY: She lives at home with her friend. Denies any tobacco, any illicit, any drug use. ALLERGIES: NO KNOWN ALLERGIES. REVIEW OF SYSTEMS: Noncontributory except for history of ulcer to the right first MPJ and previous ankle repair, left. LOWER EXTREMITY PHYSICAL EXAMINATION: Pedal pulses are palpable. Capillary filling time is delayed. The incisions at the dorsal aspect of the ankle and at the level of the leg are now healed. The sutures are intact. There is no erythema. There is no edema to the area. There are no signs or symptoms of infection. The previous ulcer to the left 1st MPJ is also healed. There is edema noted to the extremity. It is about 2/7 pitting. There is no streaking erythema and no ascending lymphangitis. Protective threshold is absent. Previous x-rays about 3 weeks ago had shown that there was starting trabeculation around the fibula fracture and it is healing. ASSESSMENT 1. Diabetes with neuropathy and peripheral vascular disease. 2. Ulcer, left metatarsophalangeal joint, healed. 3. Status post open reduction and internal fixation, left lateral malleolus and medial malleolus. PLAN: At this point, regarding the ankle fracture, she is healing well. She is now full weightbearing with the use of the splint and with the walker. The ex-fix was removed about a month ago. The sutures are intact. There are no signs or symptoms of infection. The area is healing without any issues. At this point, I am going to consult wound care in order to do a compression wrap consisting of ABD padding to the heel to prevent ulcers, Webril, and Coban Lite. The posterior splint will be reapplied along with the Arnel bandages. She is to continue to be full weightbearing. She is healing uneventfully. She will follow up with me in the office. Thank you for letting me participate in the care of this patient. Job#: [id number]
[2018-03-07] MEDS: INSULIN DETEMIR 100 UNIT/ML PEN SQ SCH (21:00)
[2018-03-07] MEDS: SIMVASTATIN 20 MG TAB PO SCH (21:30)
[2018-03-07] MEDS: TRAMADOL HCL 50 MG TAB PO SCH (21:30)
[2018-03-08] VITALS (12 sets, daily range): BP systolic 142–186; BP diastolic 68–84
[2018-03-08] MEDS: ALBUTEROL/IPRATROPIUM 3 ML NEB NEB SCH ×6 (02:52→23:00)
[2018-03-08] MEDS: INSULIN LISPRO 100 UNIT/1 ML 3ML VIAL SQ SCH ×7 (07:30→21:00)
[2018-03-08] MEDS: CYANOCOBALAMIN 1,000 MCG TAB PO SCH (08:49)
[2018-03-08] MEDS: LEVETIRACETAM 500 MG TAB PO SCH ×2 (08:49→17:05)
[2018-03-08] MEDS: VITAMIN E 400 UNIT CAP PO SCH (08:49)
[2018-03-08] MEDS: ALLOPURINOL 300 MG TAB PO SCH (08:49)
[2018-03-08] MEDS: THIAMINE HCL 100 MG TAB PO SCH (08:49)
[2018-03-08] MEDS: SODIUM BICARBONATE 650 MG TAB PO SCH ×2 (08:49→17:05)
[2018-03-08] MEDS: FUROSEMIDE INJ 10 MG/ML 4 ML VIAL IV SCH ×2 (08:49→17:04)
[2018-03-08] MEDS: PROPRANOLOL HCL 10 MG TAB PO SCH ×2 (09:07→17:05)
[2018-03-08] MEDS ORDERED: SODIUM CHLORIDE 0.9% 250ML 250 ML ONE (14:21)
[2018-03-08] MEDS ORDERED: LIDOCAINE HCL 1% LOCAL INJ 20 ML VIAL ONE (14:21)
[2018-03-08] MEDS ORDERED: MIDAZOLAM HCL 2 MG/2 ML VIAL ONE (14:43)
[2018-03-08] MEDS ORDERED: FENTANYL CITRATE/PF 100MCG/2 ML INJ ONE (14:43)
[2018-03-08] MEDS ORDERED: SODIUM CHLORIDE 0.9% 500ML 500 ML ONE (14:43)
[2018-03-08] MEDS: HYDRALAZINE HCL 20 MG/ML VIAL IV PRN (18:24)
[2018-03-08] MEDS: INSULIN DETEMIR 100 UNIT/ML PEN SQ SCH (21:00)
[2018-03-08] MEDS: ONDANSETRON HCL 4 MG ORAL DISINTEGRATING TAB SL PRN (22:18)
[2018-03-08] MEDS: TRAMADOL HCL 50 MG TAB PO SCH (22:18)
[2018-03-08] MEDS: SIMVASTATIN 20 MG TAB PO SCH (22:18)
[2018-03-09] VITALS: BP 164/72
[2018-03-09] MEDS: ALBUTEROL/IPRATROPIUM 3 ML NEB NEB SCH ×4 (03:00→15:20)
[2018-03-09 04:00] VITALS: BP 143/81
[2018-03-09] MEDS: INSULIN LISPRO 100 UNIT/1 ML 3ML VIAL SQ SCH ×6 (07:30→16:30)
[2018-03-09 08:15] VITALS: BP 136/76
[2018-03-09 08:21] VITALS: BP 136/76
[2018-03-09] MEDS: VITAMIN E 400 UNIT CAP PO SCH (10:03)
[2018-03-09] MEDS: PROPRANOLOL HCL 10 MG TAB PO SCH ×2 (10:03→16:30)
[2018-03-09] MEDS: FUROSEMIDE INJ 10 MG/ML 4 ML VIAL IV SCH ×2 (10:03→16:30)
[2018-03-09] MEDS: ALLOPURINOL 300 MG TAB PO SCH (10:03)
[2018-03-09] MEDS: THIAMINE HCL 100 MG TAB PO SCH (10:03)
[2018-03-09] MEDS: CYANOCOBALAMIN 1,000 MCG TAB PO SCH (10:03)
[2018-03-09] MEDS: LEVETIRACETAM 500 MG TAB PO SCH ×2 (10:03→16:30)
[2018-03-09] MEDS: SODIUM BICARBONATE 650 MG TAB PO SCH ×2 (10:03→16:30)
[2018-03-09 14:36] VITALS: BP 132/76
[2018-03-09 16:24] VITALS: BP 188/93
[2018-03-09] MEDS: HYDRALAZINE HCL 20 MG/ML VIAL IV PRN (16:30)
--- NOTE | 2018-03-09 19:03 | Discharge Summary ---
PRIMARY CARE PHYSICIAN: . POISER: Dr. Chuy Hanson. FINAL DIAGNOSES: 1. End-stage renal disease committed to dialysis now. 2. Volume overload with acute on chronic diastolic dysfunction and congestive heart failure. 3. Chronic anemia, status post blood transfusion. SUMMARY: A 68-year-old female with stage IV kidney failure now committed to end-stage renal disease with dialysis. Patient apparently had a volume overload due to her renal failure. She has also become more anemic. She is status post blood transfusion from dialysis. She is doing much better. The patient did have surgery and her left ankle is healing well. She is ambulatory on physical therapy. Arrangement for the dialysis has been made. The patient is stable. She will go home to continue with her home medication. She will be followed with her family doctor in approximately 1 week and continue with dialysis was set up as an outpatient. The patient is otherwise stable. Please review the medication list on discharge. Job#: [id number]
--- NOTE | 2018-03-10 22:51 | Diagnostic Imaging Report ---
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 The patient's heart rate and pulse oximetry were continuously monitored by the interventional radiology nurse. Blood pressure was monitored at 5 minute intervals. Total intraservice time for sedation: 55 minutes Additional Medications: Lidocaine 1% for local anesthesia Fluoroscopy time: 1.7 minutes Dose-area Product: 4.53 Gycm2. Frontal Air Kerma: 17.7 Contrast used: None Estimated blood loss: Less than 10 cc Blood products administered: None Specimens: Temporary HD catheter removed Implants: 16 [place] 19 cm tip-cuff tunneled hemodialysis catheter Condition at completion: Stable Disposition: Returned to floor DISCUSSION: The patient was placed in the supine position on the fluoroscopy table. Preliminary sonographic evaluation confirmed patency of the right internal jugular vein, evidenced by compressibility. The right neck and upper chest wall were prepped and draped using full barrier sterile technique. 1% lidocaine was infiltrated into the right cervical subcutaneous tissues for local anesthesia. Using ultrasound guidance, a 21-gauge micropuncture needle was utilized to access the right internal jugular vein. A permanent sonographic image was archived in PACS. A 0.018 inch guidewire was advanced through the needle into the superior vena cava under fluoroscopic guidance. The needle was removed and a 5-[place] micropuncture sheath was advanced over the wire to secure access. Intravascular length to the upper right atrium was determined using the 0.018 inch wire. Subsequently, the wire and inner dilator of the micropuncture sheath were removed, and a 0.035 inch wire was advanced through the micropuncture sheath and into the inferior vena cava. Attention was then turned to creation of a subcutaneous tunnel on the right upper chest. 1% lidocaine was infiltrated into the subcutaneous tissues inferior and lateral to the micropuncture sheath. A small stab incision was made a few inches inferolateral to the sheath insertion site, approximately 3 fingerbreadth below the clavicle, and blunt dissection was utilized to tunnel the catheter from the skin incision to the sheath insertion site, placing the catheter cuff well into the subcutaneous tunnel. The tract was serially dilated and a 16.5 [place] peel-away sheath was advanced over the wire under fluoroscopic guidance. The wire and inner dilator were removed and the catheter was then advanced through the peel-away sheath, which was subsequently broken and removed. The catheter was positioned with the tip in the upper right atrium. Both catheter lumens demonstrated good bidirectional blood flow, and were then flushed with heparinized saline. Each port was packed with 2500 units of heparin. The catheter was then secured to the skin using monofilament nylon suture, and a sterile dressing was applied. The retention sutures for the temporary hemodialysis catheter were then cut and the catheter was removed in total. Hemostasis was achieved with manual compression. A sterile dressing was applied. The patient tolerated the procedure well without immediate complication. FINDINGS: 1. Patent right internal jugular vein. IMPRESSION: Successful placement of a tunneled hemodialysis catheter (16 [place], 19 cm tip-cuff length) by a right internal jugular approach under sonographic and fluoroscopic guidance. Successful removal of a right internal jugular temporary hemodialysis catheter. Signed by: Dr. Dandy Gaines M.D. on 03/10/2018 10:47 PM
--- NOTE | 2018-03-10 22:51 | Diagnostic Imaging Report ---
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 Gaines Pre-operative diagnosis: End-stage renal disease Post-operative diagnosis: End-stage renal disease Conscious Sedation: Versed 0.5 mg and Fentanyl 50 mcg. The patient's heart rate and pulse oximetry were continuously monitored by the interventional radiology nurse. Blood pressure was monitored at 5 minute intervals. Total intraservice time for sedation: 55 minutes Additional Medications: Lidocaine 1% for local anesthesia Fluoroscopy time: 1.7 minutes Dose-area Product: 4.53 Gycm2. Frontal Air Kerma: 17.7 Contrast used: None Estimated blood loss: Less than 10 cc Blood products administered: None Specimens: Temporary HD catheter removed Implants: 16 Citizen Of [place] 19 cm tip-cuff tunneled hemodialysis catheter Condition at completion: Stable Disposition: Returned to floor DISCUSSION: The patient was placed in the supine position on the fluoroscopy table. Preliminary sonographic evaluation confirmed patency of the right internal jugular vein, evidenced by compressibility. The right neck and upper chest wall were prepped and draped using full barrier sterile technique. 1% lidocaine was infiltrated into the right cervical subcutaneous tissues for local anesthesia. Using ultrasound guidance, a 21-gauge micropuncture needle was utilized to access the right internal jugular vein. A permanent sonographic image was archived in PACS. A 0.018 inch guidewire was advanced through the needle into the superior vena cava under fluoroscopic guidance. The needle was removed and a 5-Citizen [place] micropuncture sheath was advanced over the wire to secure access. Intravascular length to the upper right atrium was determined using the 0.018 inch wire. Subsequently, the wire and inner dilator of the micropuncture sheath were removed, and a 0.035 inch wire was advanced through the micropuncture sheath and into the inferior vena cava. Attention was then turned to creation of a subcutaneous tunnel on the right upper chest. 1% lidocaine was infiltrated into the subcutaneous tissues inferior and lateral to the micropuncture sheath. A small stab incision was made a few inches inferolateral to the sheath insertion site, approximately 3 fingerbreadth below the clavicle, and blunt dissection was utilized to tunnel the catheter from the skin incision to the sheath insertion site, placing the catheter cuff well into the subcutaneous tunnel. The tract was serially dilated and a 16.5 Citizen [place] peel-away sheath was advanced over the wire under fluoroscopic guidance. The wire and inner dilator were removed and the catheter was then advanced through the peel-away sheath, which was subsequently broken and removed. The catheter was positioned with the tip in the upper right atrium. Both catheter lumens demonstrated good bidirectional blood flow, and were then flushed with heparinized saline. Each port was packed with 2500 units of heparin. The catheter was then secured to the skin using monofilament nylon suture, and a sterile dressing was applied. The retention sutures for the temporary hemodialysis catheter were then cut and the catheter was removed in total. Hemostasis was achieved with manual compression. A sterile dressing was applied. The patient tolerated the procedure well without immediate complication. FINDINGS: 1. Patent right internal jugular vein. IMPRESSION: Successful placement of a tunneled hemodialysis catheter (16 Citizen [place], 19 cm tip-cuff length) by a right internal jugular approach under sonographic and fluoroscopic guidance. Successful removal of a right internal jugular temporary hemodialysis catheter. Signed by: Dr. Dandy Gaines M.D. on 03/10/2018 10:47 PM
== END 2018-03-09 17:13 | disposition home or self-care (01) | DRG 673 ==
LOC: ER 12:55 → ERHOLD 18:42 → MED/SURG2 03-04 12:44
PROVIDERS: ADMIT Internal Medicine; ATTEND Internal Medicine
PROC: 5A1D70Z Performance of Urinary Filtration, Intermittent, Less than 6 Hours Per Day (ICD-10-PCS; principal; 2018-03-04)
PROC: 02HV33Z Insertion of Infusion Device into Superior Vena Cava, Percutaneous Approach (ICD-10-PCS; 2018-03-04)
PROC: 30243N1 Transfusion of Nonautologous Red Blood Cells into Central Vein, Percutaneous Approach (ICD-10-PCS; 2018-03-06)
PROC: 5A1D70Z Performance of Urinary Filtration, Intermittent, Less than 6 Hours Per Day (ICD-10-PCS; 2018-03-07)
PROC: 5A1D70Z Performance of Urinary Filtration, Intermittent, Less than 6 Hours Per Day (ICD-10-PCS; 2018-03-07)
PROC: 0JH63XZ Insertion of Tunneled Vascular Access Device into Chest Subcutaneous Tissue and Fascia, Percutaneous Approach (ICD-10-PCS; 2018-03-08)
PROC: 5A1D70Z Performance of Urinary Filtration, Intermittent, Less than 6 Hours Per Day (ICD-10-PCS; 2018-03-08)
PROC: 02HV33Z Insertion of Infusion Device into Superior Vena Cava, Percutaneous Approach (ICD-10-PCS; 2018-03-08)
DX: N17.9 Acute kidney failure, unspecified (principal); I50.33 Acute on chronic diastolic (congestive) heart failure; I13.2 Hypertensive heart and chronic kidney disease with heart failure and with stage 5 chronic kidney disease, or end stage renal disease; Z68.42 Body mass index [BMI] 45.0-49.9, adult; N18.6 End stage renal disease; E11.22 Type 2 diabetes mellitus with diabetic chronic kidney disease; Z99.2 Dependence on renal dialysis; E87.70 Fluid overload, unspecified; E66.01 Morbid (severe) obesity due to excess calories; M19.90 Unspecified osteoarthritis, unspecified site; I11.0 Hypertensive heart disease with heart failure; I50.84 End stage heart failure; Z79.4 Long term (current) use of insulin; E11.40 Type 2 diabetes mellitus with diabetic neuropathy, unspecified; E11.51 Type 2 diabetes mellitus with diabetic peripheral angiopathy without gangrene; E11.621 Type 2 diabetes mellitus with foot ulcer; L97.529 Non-pressure chronic ulcer of other part of left foot with unspecified severity; D63.1 Anemia in chronic kidney disease
CPT/HCPCS: 36415; 36556; 36558; 51700; 71045; 74470; 76937; 77001; 78582; 80048; 80053; 82550; 82553; 82948; 83880; 84100; 84484; 85025; 85379; 85610; 85730; 86705; 86706; 86803; 86850; 86900; 86920; 87340; 90962; 93005; 93306; 94640; 97139; 99152; 99153; 99284; C1769; J0360; J1644; J1650; J1940; J2001; J2250; J3411; J7030; J7040; J7050; P9016